=== PATIENT | male | born 1940 | race Native Hawaiian/Other Pacific Islander ===

== ENCOUNTER 2018-04-11 16:29 | Inpatient (IN) | payer MEDICARE ==
--- NOTE | 2018-04-11 16:48 | C.PDOC ---
History Of Present Illness 78 y/o M c PMHx CAD s/p CABG, pacemaker, COPD p/w shortness of breath x 1 week. Patient reports cough productive of yellow/green sputum. Denies fever, chest pain, leg swelling hemoptysis, nausea, vomiting. Returned from [facility] 3 weeks ago. Received nebulizer treatment en route to ED. Time Seen by Provider: 04/11/18 16:37 Chief Complaint (Nursing): Shortness Of Breath Past Medical History Vital Signs: Last Vital Signs Temp 98.4 F 04/11/18 19:30 Pulse 70 04/11/18 19:30 Resp 30 H 04/11/18 19:30 BP 142/72 04/11/18 19:30 Pulse Ox 96 04/11/18 19:30 - Medical History PMH: Arthritis, HTN - [facility] Procedures CORONAR ARTERIOGR-2 CATH (02/14/14) LEFT HEART CARDIAC CATH (02/14/14) LT HEART ANGIOCARDIOGRAM (02/14/14) Family History: States: Unknown Family Hx - Social History Hx Tobacco Use: No Hx Alcohol Use: No Hx Substance Use: No - Immunization History Hx Tetanus Toxoid Vaccination: No Hx Influenza Vaccination: No Hx Pneumococcal Vaccination: No Review Of Systems Except As Marked, All Systems Reviewed And Found Negative. Constitutional: Negative for: Fever Cardiovascular: Negative for: Chest Pain Physical Exam - Physical Exam Additional Physical Exam Comments: Gen: In moderate respiratory distress Head: NC/AT Eyes: PERRL ENT: MMM Neck: Supple. No JVD. Chest: No tenderness CV: Regular rate Lungs: Bilateral crackles. No wheezing. Pulse oximetry 96 to 98% on room air. Abd: Soft, NT Back: No CVA tenderness Extremities: No leg edema Skin: No rash Neuro: Alert, no focal deficit ED Course And Treatment - Laboratory Results Result Diagrams: 04/11/18 17:04 04/11/18 17:04 Critical Care Time - Critical Care Note Total Time (in mins): 60 Comments: Patient required immediate attention, reassessments, complex decision making, and multiple specialist conversations. Documented critical care: time excludes all time spent performing seperately billable procedures. Medical Decision Making Medical Decision Making: Differential includes pneumonia, CHF, COPD, PE. Unlikely PE given normal pulse oximetry and abnormal lung sounds. Will send d dimer, however, once other diagnosis becomes apparent, will forego further PE testing. EKG Ventricular paced rhythm, 70 bpm, no ST elevations IMPRESSION: Right basilar opacity suspicious for pneumonia. In addition, nodular opacities at right base raise concern for metastatic disease. Consider further evaluation with CT chest. CODE SEPSIS activated for lactate 2.2. ICU consulted, recommend Telemetry admission at this time. Hospitalist service covering for Dr. Campa accepts patient to their service. Disposition - Disposition Disposition: HOSPITALIZED Disposition Time: 17:19 Condition: GUARDED Forms: [employer] ([place]) - POA Core Measure Indicators: Code Sepsis - Clinical Impression Clinical Impression: Pneumonia, Sepsis
[2018-04-11 17:08] LABS: BASO % 0.3 % (0.0-2.0); HEMOGLOBIN 14.2 g/dL (12.0-18.0); LYMPH # 0.7 K/uL (1.0-4.3); LYMPH % 5.2 % (20.0-40.0); MEAN CELL VOLUME 86.3 fL (80.0-94.0); MEAN CORPUSCULAR HEMOGLOBIN 29.9 pg (27.0-31.0); MEAN CORPUSCULAR HGB CONC 34.7 g/dL (33.0-37.0); MEAN PLATELET VOLUME 9.8 fL (7.2-11.7); MONO % 7.2 % (0.0-10.0); NEUT # 12.2 K/uL (1.8-7.0); NEUT % 87.3 % (50.0-75.0); NRBC % 0.1 % (0.0-2.0); PLATELET COUNT 230 K/uL (130-400); RBC 4.74 Mil/uL (4.40-5.90); RED CELL DISTRIBUTION WIDTH 14.2 % (11.5-14.5)
[2018-04-11] MEDS ORDERED: Moxifloxacin IV 400mg/250ml NS 400 MG/250 ML BAG IVPB STA (17:16)
[2018-04-11] MEDS ORDERED: Vancomycin 1 gm/NS 200 ml 1 GM/200 ML BAG IVPB STA (17:16)
[2018-04-11] MEDS ORDERED: Cefepime IV 2 gm in Dextrose 2 GM/100 ML BAG IVPB STA (17:16)
[2018-04-11 17:23] LABS: INR 1.2; PROTHROMBIN TIME 13.4 SECONDS (9.7-12.2)
--- NOTE | 2018-04-11 17:23 | RAD ---
Date of service: 04/11/2018 HISTORY: dyspnea COMPARISON: 02/14/2014 FINDINGS: LUNGS: Right basilar pulmonary opacity suspicious for pneumonia. . Several nodular opacities at right base raising concern for metastasis. Consider correlation with CT chest. No left-sided infiltrate appreciated. PLEURA: No significant pleural effusion identified, no pneumothorax apparent. CARDIOVASCULAR: Normal heart size. Permanent pacemaker. CABG. No congestive change. OSSEOUS STRUCTURES: No significant abnormalities. VISUALIZED UPPER ABDOMEN: Normal. OTHER FINDINGS: None. IMPRESSION: Right basilar opacity suspicious for pneumonia. In addition, nodular opacities at right base raise concern for metastatic disease. Consider further evaluation with CT chest.
[2018-04-11 17:32] LABS: BANDS 25 % (0-2); LYMPHOCYTE 6 % (20-40); MONOCYTE 7 % (0-10); NEUTROPHIL 62 % (50-75); PLATELET ESTIMATE NORMAL (NORMAL); TOTAL CELLS COUNTED 100
[2018-04-11] MEDS ORDERED: Sodium Chloride 0.9% 2,000 ML ONE (17:43)
[2018-04-11] MEDS ORDERED: Sodium Chloride 0.9% 500 ML IV ONE (17:44)
[2018-04-11 17:49] LABS: ABG ALLEN TEST PO; ARTERIAL BLOOD GAS HCO3 21.3 mmol/L (21-28); ARTERIAL BLOOD GAS O2 SAT 95.4 % (95-98); ARTERIAL BLOOD GAS PCO2 22 mm/Hg (35-45); ARTERIAL BLOOD GAS PH 7.49 (7.35-7.45); ARTERIAL BLOOD GAS PO2 63 mm/Hg (80-100); ARTERIAL BLOOD GAS TCO2 17.5 mmol/L (22-28)
[2018-04-11 18:13] LABS: SQUAMOUS EPITHIAL < 1 /hpf (0-5); URINE BACTERIA MANY (<OCC); URINE BILIRUBIN NEGATIVE (NEGATIVE); URINE CLARITY Clear (Clear); URINE COLOR Amber (YELLOW); URINE GLUCOSE (UA) NORMAL (Normal); URINE LEUKOCYTE ESTERASE TRACE Leu/uL (Negative); URINE PROTEIN 2+ mg/dL (NEGATIVE)
[2018-04-11 18:14] LABS: ALB/GLOB RATIO 1.1 (1.0-2.1); ALBUMIN 4.4 g/dL (3.5-5.0); CALCIUM 9.5 mg/dl (8.6-10.4)
[2018-04-11 18:14] LABS: URINE BLOOD 1+ (NEGATIVE)
[2018-04-11 18:27] LABS: CK-MB 1.55 ng/mL (0.0-3.38); TROPONIN I 0.058 ng/mL (0.00-0.120)
[2018-04-11] MEDS ORDERED: Azithromycin 500 MG in Sodium Chloride 0.9% 250 ML IVPB STA (19:10)
--- NOTE | 2018-04-11 19:17 | CP.PCM.CON ---
<Archie Rivera - Last Filed: 04/11/18 19:27> Meds Allergies/Adverse Reactions: Allergies Allergy/AdvReac Type Severity Reaction Status Date / Time SEASONAL Allergy Uncoded 04/11/18 16:37 - Medications Medications: Current Medications Budesonide (Pulmicort Respules) 0.5 mg INH RQ12 NAYE Furosemide (Lasix) 40 mg IVP ONCE ONE Stop: 04/12/18 02:01 Sodium Chloride (Sodium Chloride 0.9%) 2,400 mls @ 1,000 mls/hr IV .Q2H24M STA Stop: 04/11/18 19:59 Last Admin: 04/11/18 17:53 Dose: 1,000 mls/hr Azithromycin 500 mg/ Sodium (Chloride) 250 mls @ 250 mls/hr IVPB STAT STA PRN Reason: Protocol Stop: 04/11/18 20:09 Azithromycin 500 mg/ Sodium (Chloride) 250 mls @ 250 mls/hr IVPB DAILY NAYE PRN Reason: Protocol Ceftriaxone Sodium 1 gm/ (Sodium Chloride) 100 mls @ 100 mls/hr IVPB Q12H NAYE PRN Reason: Protocol Methylprednisolone 125 mg/ (Sodium Chloride) 100 mls @ 200 mls/hr IVPB ONCE ONE Stop: 04/11/18 19:24 Oseltamivir Phosphate (Tamiflu Cap) 75 mg PO BID NAYE PRN Reason: Protocol Stop: 04/16/18 19:12 Results - Vital Signs Recent Vital Signs: Last Vital Signs Temp 103.4 F H 04/11/18 16:55 Pulse 69 04/11/18 18:06 Resp 25 H 04/11/18 18:06 BP 157/79 H 04/11/18 18:06 Pulse Ox 95 04/11/18 18:06 - Labs Result Diagrams: 04/11/18 17:04 04/11/18 17:04 Labs: Laboratory Results - last 24 hr 04/11/18 04/11/18 04/11/18 17:04 17:04 17:04 WBC 14.0 H D RBC 4.74 Hgb 14.2 Hct 40.9 MCV 86.3 MCH 29.9 MCHC 34.7 RDW 14.2 Plt Count 230 MPV 9.8 Neut % (Auto) 87.3 H Lymph % (Auto) 5.2 L [place] % (Auto) 7.2 Eos % (Auto) 0.0 Baso % (Auto) 0.3 Neut # (Auto) 12.2 H Lymph # (Auto) 0.7 L [place] # (Auto) 1.0 H Eos # (Auto) 0.0 Baso # (Auto) 0.0 Neutrophils % (Manual) 62 Band Neutrophils % 25 H* Lymphocytes % (Manual) 6 L Monocytes % (Manual) 7 Platelet Estimate Normal RBC Morphology Normal PT 13.4 H INR 1.2 APTT 31 D-Dimer, Quantitative 947 H Puncture Site pCO2 pO2 HCO3 ABG pH ABG Total CO2 ABG O2 Saturation ABG Base Excess Prakash Test ABG Potassium Glucose Lactate Liter Flow Sodium 137 Potassium 3.9 Chloride 99 Carbon Dioxide 20 L Anion Gap 22 H BUN 18 Creatinine 1.4 Est GFR ( Amer) 59 Est GFR (Non-Af Amer) 49 Random Glucose 185 H Calcium 9.5 Phosphorus 1.7 L Magnesium 2.0 Total Bilirubin 2.2 H AST 25 ALT 16 L D Alkaline Phosphatase 107 Total Creatine Kinase 120 CK-MB (Mass) 1.55 Troponin I 0.0580 NT-Pro-B Natriuret Pep 5550 H Total Protein 8.3 Albumin 4.4 Globulin 3.9 Albumin/Globulin Ratio 1.1 Arterial Blood Potassium Urine Color Urine Clarity Urine pH Ur Specific [place] Urine Protein Urine Glucose (UA) Urine Ketones Urine Blood Urine Nitrate Urine Bilirubin Urine Urobilinogen Ur Leukocyte Esterase Urine WBC (Auto) Urine RBC (Auto) Ur Squamous Epith Cells Urine Bacteria Hyaline Casts Influenza Typ A,B (EIA) 04/11/18 04/11/18 04/11/18 17:32 17:47 17:58 WBC RBC Hgb Hct MCV MCH MCHC RDW Plt Count MPV Neut % (Auto) Lymph % (Auto) [place] % (Auto) Eos % (Auto) Baso % (Auto) Neut # (Auto) Lymph # (Auto) [place] # (Auto) Eos # (Auto) Baso # (Auto) Neutrophils % (Manual) Band Neutrophils % Lymphocytes % (Manual) Monocytes % (Manual) Platelet Estimate RBC Morphology PT INR APTT D-Dimer, Quantitative Puncture Site Rr pCO2 22 L pO2 63 L HCO3 21.3 ABG pH 7.49 H ABG Total CO2 17.5 L ABG O2 Saturation 95.4 ABG Base Excess -4.5 L Prakash Test Po ABG Potassium 2.8 L Glucose 172 H Lactate 2.2 H Liter Flow 3.0 Sodium 135.0 Potassium Chloride 105.0 Carbon Dioxide Anion Gap BUN Creatinine Est GFR ( Amer) Est GFR (Non-Af Amer) Random Glucose Calcium Phosphorus Magnesium Total Bilirubin AST ALT Alkaline Phosphatase Total Creatine Kinase CK-MB (Mass) Troponin I NT-Pro-B Natriuret Pep Total Protein Albumin Globulin Albumin/Globulin Ratio Arterial Blood Potassium 2.8 L Urine Color Narcisa Urine Clarity Clear Urine pH 5.0 Ur Specific [place] 1.017 Urine Protein 2+ H Urine Glucose (UA) Normal Urine Ketones Trace Urine Blood 1+ H Urine Nitrate Negative Urine Bilirubin Negative Urine Urobilinogen 4.0 Ur Leukocyte Esterase Trace Urine WBC (Auto) 13 H Urine RBC (Auto) 7 H Ur Squamous Epith Cells < 1 Urine Bacteria Many H Hyaline Casts 3-5 H Influenza Typ A,B (EIA) Pos for influenza a H Attending/Attestation - Attestation I have personally seen and examined this patient.: Yes I have fully participated in the care of the patient.: Yes I have reviewed all pertinent clinical information: Yes Notes (Text): 04/11/18 19:27 I have seen and examined the patient. Medical records, lab studies, and imaging were reviewed by me and a management plan was formulated on multidisciplinary rounds with resident Dr. Gomez. I agree with their documented assessment and plan. Patient p/w SOB secondary to influenza with pneumonia - started abx and tamiflu c/b probable acute on chronic CHF exacerbation, diuresing with albumin drip. obtaining echo. with underlying emphysema. - steroid bolus with pulmicort inh bid Probable lung cancer, would consult pulmonary. Patient is currently stable for continue management on the telemetry floors, please reconsult ICU if the patient's condition changes. Critical Care Time 35 minutes. Multi-disciplinary rounds were performed with house staff, nursing, speech therapy, respiratory therapy, pharmacy and nutrition with integrated input from the primary team/attending and other consulting services. The documented time is cumulative and includes review of patient data/exams/labs/chart review and examination of the patient on rounds and throughout the day; time is exclusive of any procedures or teaching time. <Mohsen Gomez - Last Filed: 04/11/18 20:01> History of Present Illness - History of Present Illness History of Present Illness: Mohsen Gomez DO PGY-1, ICU consult note for Dr. Rivera CC: SOB, Cough Pt chart and records were reviewed prior to evaluation. This is a 78 year old male with PMHx of CAD s/p CABG, pacemaker, recently diagnosed Emphysema, HTN who presented with worsening cough and shortness of breath for the past 10 days. Pt states that his cough is productive of green sputum. His family admits to fever, tmax 101, 6 days ago. ICU was consulted for shortness of breath. In the ED, pt noted to have leukocytosis with 25 bands, BNP 5550, lactate 2.2, flu positive. Code sepsis was called. Pt received 80 mg of lasix IVP in the ED, as well as IVF. Pt was seen and examined at bedside. Pt is actively short of breath, with tachypnea and inability to complete sentences without stopping for deep breaths. Pt denies headache, dizziness, chest pain, abdominal pain, n/v/d. Pt endorses a decreased appetite over the past 2 weeks. PMD/Pulm: Yessy/ Katheryn Cogeneration Operator: Lucio Cardiothoracic surgeon: Dr. 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 Past Patient History - Past Medical History & Family History Past Medical History?: Yes - Past Social History Smoking Status: Never Smoked - CARDIAC Hx Hypertension: Yes - HEENT Hx Blind: Yes - MUSCULOSKELETAL/RHEUMATOLOGICAL Hx Arthritis: Yes - PSYCHIATRIC Hx Substance Use: No - SURGICAL HISTORY Hx Cataract Extraction: Yes - ANESTHESIA Hx Anesthesia: Yes Hx Anesthesia Reactions: No Meds - Medications Medications: Current Medications Sodium Chloride (Sodium Chloride 0.9%) 2,400 mls @ 1,000 mls/hr IV .Q2H24M STA Stop: 04/11/18 19:59 Last Admin: 04/11/18 17:53 Dose: 1,000 mls/hr Physical Exam - Head Exam Head Exam: ATRAUMATIC, NORMAL INSPECTION - Eye Exam Eye Exam: EOMI - ENT Exam ENT Exam: Mucous Membranes Moist - Neck Exam Neck exam: Positive for: Normal Inspection - Respiratory Exam Respiratory Exam: Rales (diffuse), Wheezes (scattered). absent: Respiratory Distress ((+) tachypnea; sob when talking) Additional comments: (+) large midline well-healing sternotomy scar - Cardiovascular Exam Cardiovascular Exam: REGULAR RHYTHM, +S1, +S2 - GI/Abdominal Exam GI & Abdominal Exam: Normal Bowel Sounds, Soft. absent: Tenderness - Extremities Exam Extremities exam: Positive for: pedal pulses present (2+ DPs). Negative for: tenderness Additional comments: (+) venous stasis changes - Neurological Exam Neurological exam: Alert, Oriented x3 - Psychiatric Exam Psychiatric exam: Normal Affect - Skin Skin Exam: Normal Color, Warm Results - Vital Signs Recent Vital Signs: Last Vital Signs Temp 103.4 F H 04/11/18 16:55 Pulse 69 04/11/18 18:06 Resp 25 H 04/11/18 18:06 BP 157/79 H 04/11/18 18:06 Pulse Ox 95 04/11/18 18:06 - Labs Result Diagrams: 04/11/18 17:04 04/11/18 17:04 Labs: Laboratory Results - last 24 hr 04/11/18 04/11/18 04/11/18 17:04 17:04 17:04 WBC 14.0 H D RBC 4.74 Hgb 14.2 Hct 40.9 MCV 86.3 MCH 29.9 MCHC 34.7 RDW 14.2 Plt Count 230 MPV 9.8 Neut % (Auto) 87.3 H Lymph % (Auto) 5.2 L [place] % (Auto) 7.2 Eos % (Auto) 0.0 Baso % (Auto) 0.3 Neut # (Auto) 12.2 H Lymph # (Auto) 0.7 L [place] # (Auto) 1.0 H Eos # (Auto) 0.0 Baso # (Auto) 0.0 Neutrophils % (Manual) 62 Band Neutrophils % 25 H* Lymphocytes % (Manual) 6 L Monocytes % (Manual) 7 Platelet Estimate Normal RBC Morphology Normal PT 13.4 H INR 1.2 APTT 31 D-Dimer, Quantitative 947 H Puncture Site pCO2 pO2 HCO3 ABG pH ABG Total CO2 ABG O2 Saturation ABG Base Excess Prakash Test ABG Potassium Glucose Lactate Liter Flow Sodium 137 Potassium 3.9 Chloride 99 Carbon Dioxide 20 L Anion Gap 22 H BUN 18 Creatinine 1.4 Est GFR ( Amer) 59 Est GFR (Non-Af Amer) 49 Random Glucose 185 H Calcium 9.5 Phosphorus 1.7 L Magnesium 2.0 Total Bilirubin 2.2 H AST 25 ALT 16 L D Alkaline Phosphatase 107 Total Creatine Kinase 120 CK-MB (Mass) 1.55 Troponin I 0.0580 NT-Pro-B Natriuret Pep 5550 H Total Protein 8.3 Albumin 4.4 Globulin 3.9 Albumin/Globulin Ratio 1.1 Arterial Blood Potassium Urine Color Urine Clarity Urine pH Ur Specific [place] Urine Protein Urine Glucose (UA) Urine Ketones Urine Blood Urine Nitrate Urine Bilirubin Urine Urobilinogen Ur Leukocyte Esterase Urine WBC (Auto) Urine RBC (Auto) Ur Squamous Epith Cells Urine Bacteria Hyaline Casts Influenza Typ A,B (EIA) 04/11/18 04/11/18 04/11/18 17:32 17:47 17:58 WBC RBC Hgb Hct MCV MCH MCHC RDW Plt Count MPV Neut % (Auto) Lymph % (Auto) [place] % (Auto) Eos % (Auto) Baso % (Auto) Neut # (Auto) Lymph # (Auto) [place] # (Auto) Eos # (Auto) Baso # (Auto) Neutrophils % (Manual) Band Neutrophils % Lymphocytes % (Manual) Monocytes % (Manual) Platelet Estimate RBC Morphology PT INR APTT D-Dimer, Quantitative Puncture Site Rr pCO2 22 L pO2 63 L HCO3 21.3 ABG pH 7.49 H ABG Total CO2 17.5 L ABG O2 Saturation 95.4 ABG Base Excess -4.5 L Prakash Test Po ABG Potassium 2.8 L Glucose 172 H Lactate 2.2 H Liter Flow 3.0 Sodium 135.0 Potassium Chloride 105.0 Carbon Dioxide Anion Gap BUN Creatinine Est GFR ( Amer) Est GFR (Non-Af Amer) Random Glucose Calcium Phosphorus Magnesium Total Bilirubin AST ALT Alkaline Phosphatase Total Creatine Kinase CK-MB (Mass) Troponin I NT-Pro-B Natriuret Pep Total Protein Albumin Globulin Albumin/Globulin Ratio Arterial Blood Potassium 2.8 L Urine Color [place] Urine Clarity Clear Urine pH 5.0 Ur Specific [place] 1.017 Urine Protein 2+ H Urine Glucose (UA) Normal Urine Ketones Trace Urine Blood 1+ H Urine Nitrate Negative Urine Bilirubin Negative Urine Urobilinogen 4.0 Ur Leukocyte Esterase Trace Urine WBC (Auto) 13 H Urine RBC (Auto) 7 H Ur Squamous Epith Cells < 1 Urine Bacteria Many H Hyaline Casts 3-5 H Influenza Typ A,B (EIA) Pos for influenza a H Assessment & Plan - Assessment and Plan (Free Text) Assessment: This is a 78 year old male with PMHx of CAD s/p CABG, pacemaker, recently diagnosed Emphysema, HTN who presented with worsening cough and shortness of breath for the past 10 days. Pt states that his cough is productive of green sputum. His family admits to fever, tmax 101, 6 days ago. ICU was consulted for shortness of breath. Plan: Neuro: - monitor for mental status changes - pt is aaox3 at baseline Cardio: - maintain MAP>65 mmHg - BNP is 5550 - place hagen - lasix 40 mg ivp - troponin negative x1 - albumin drip - echocardiogram Pulm: - cxr shows right basilar opacity suspicious for pneumonia. In addition, nodular opacities at right base concern for metastatic disease. - maintain spo2>90% - antibiotics for pneumonia - positive for influenza a; tamiflu - solumedrol 125 mg bolus, solumedrol 40q12 - PFTs - pulmicort GI: - HHD Renal: - BUN/Cr wnl - replete electrolytes as needed - strict I's and O's while being diuresed ID: - likely community acquired pnuemonia; azithromycin, ceftriaxone - lactate is 2.2; likely secondary to pneumonia Heme/onc: - cxr findings suggestive of possible malignancy - pulmonology consult - f/u cxr - heparin and scd for vte ppx Endo: - maintain euglycemia - accucheck achs PPX: heparin and SCDs for vte Case reviewed and discussed with attending physician, Dr. Rivera
[2018-04-11] MEDS ORDERED: Albumin Human 5% (12.5 gm/250 ml) IV ONE (19:22)
[2018-04-11] MEDS ORDERED: methylPREDNISolone 125 MG in Sodium Chloride 0.9% 100 ML IVPB ONE (19:23)
[2018-04-11 19:59] LABS: VENOUS BLOOD GAS PCO2 27 mmHg (40-60); VENOUS BLOOD GAS PO2 28 mm/Hg (30-55); VENOUS BLOOD PH 7.41 (7.32-7.43)
[2018-04-11] MEDS: Budesonide 0.5 mg/2 ml Inhal Susp UD INH SCH (20:00)
[2018-04-11] MEDS ORDERED: Potassium Phosphate 15 MMOLE in Dextrose 5% In Water 250 ML IVPB ONE (21:26)
--- NOTE | 2018-04-11 21:44 | CP.PCM.HP ---
History of Present Illness - History of Present Illness History of Present Illness: 78 yo M w/ PMHx of HTN, CAD(CABG and pacemaker 2014) and newly diagnosed emphysema, presents to the ED w/ complaints of cough and SOB x 3 days, productive of green sputum. Pt reports fever like symptoms including chills and sweats, dizziness associated w/ cough, and anorexia. Patient also reports constipation x5 days. Patient recently returned from the [facility] 3 weeks ago. He denies chest pain, nausea, vomiting, diarrhea. Present on Admission - Present on Admission Any Indicators Present on Admission: No Review of Systems - Constitutional Constitutional: Anorexia, Chills - Cardiovascular Cardiovascular: absent: Chest Pain, Edema, Palpitations - Respiratory Respiratory: Cough, Dyspnea, Wheezing, Chest Congestion, Excessive Mucous Production (green sputum). absent: Hemoptysis - Gastrointestinal Gastrointestinal: Constipation (5days). absent: Abdominal Pain, Diarrhea, Nausea, Vomiting - Genitourinary Genitourinary: absent: Difficulty Urinating, Dysuria - Neurological Neurological: Dizziness (with coughing) Past Patient History - Past Medical History & Family History Past Medical History?: Yes - Past Social History Smoking Status: Never Smoked - CARDIAC Hx Hypertension: Yes - HEENT Hx Blind: Yes - MUSCULOSKELETAL/RHEUMATOLOGICAL Hx Arthritis: Yes - PSYCHIATRIC Hx Substance Use: No - SURGICAL HISTORY Hx Cataract Extraction: Yes - ANESTHESIA Hx Anesthesia: Yes Hx Anesthesia Reactions: No Meds Allergies/Adverse Reactions: Allergies Allergy/AdvReac Type Severity Reaction Status Date / Time SEASONAL Allergy Uncoded 04/11/18 16:37 Physical Exam - Constitutional Appears: Non-toxic - Head Exam Head Exam: ATRAUMATIC, NORMAL INSPECTION, NORMOCEPHALIC - Eye Exam Eye Exam: EOMI - ENT Exam ENT Exam: Mucous Membranes Moist - Neck Exam Neck exam: Positive for: Normal Inspection - Respiratory Exam Respiratory Exam: Rhonchi, Wheezes. absent: Accessory Muscle Use, Chest Wall Tenderness - Cardiovascular Exam Cardiovascular Exam: REGULAR RHYTHM. absent: Tachycardia - GI/Abdominal Exam GI & Abdominal Exam: Normal Bowel Sounds, Soft - Extremities Exam Extremities exam: Positive for: normal capillary refill, normal inspection. Negative for: calf tenderness, pedal edema - Back Exam Back exam: absent: vertebral tenderness - Neurological Exam Neurological exam: Alert, Oriented x3 - Psychiatric Exam Psychiatric exam: Normal Affect - Skin Skin Exam: Normal Color Results - Vital Signs Recent Vital Signs: Last Vital Signs Temp 98.4 F 04/11/18 19:30 Pulse 70 04/11/18 19:30 Resp 30 H 04/11/18 19:30 BP 142/72 04/11/18 19:30 Pulse Ox 96 04/11/18 19:30 - Labs Result Diagrams: 04/11/18 17:04 04/11/18 17:04 Labs: Laboratory Results - last 24 hr 04/11/18 04/11/18 04/11/18 17:04 17:04 17:04 WBC 14.0 H D RBC 4.74 Hgb 14.2 Hct 40.9 MCV 86.3 MCH 29.9 MCHC 34.7 RDW 14.2 Plt Count 230 MPV 9.8 Neut % (Auto) 87.3 H Lymph % (Auto) 5.2 L [place] % (Auto) 7.2 Eos % (Auto) 0.0 Baso % (Auto) 0.3 Neut # (Auto) 12.2 H Lymph # (Auto) 0.7 L [place] # (Auto) 1.0 H Eos # (Auto) 0.0 Baso # (Auto) 0.0 Neutrophils % (Manual) 62 Band Neutrophils % 25 H* Lymphocytes % (Manual) 6 L Monocytes % (Manual) 7 Platelet Estimate Normal RBC Morphology Normal PT 13.4 H INR 1.2 APTT 31 D-Dimer, Quantitative 947 H Puncture Site pCO2 pO2 HCO3 ABG pH ABG Total CO2 ABG O2 Saturation ABG Base Excess Prakash Test ABG Potassium VBG pH VBG pCO2 VBG HCO3 VBG Total CO2 VBG O2 Sat (Calc) VBG Base Excess VBG Potassium Glucose Lactate Liter Flow FiO2 Sodium 137 Potassium 3.9 Chloride 99 Carbon Dioxide 20 L Anion Gap 22 H BUN 18 Creatinine 1.4 Est GFR ( Amer) 59 Est GFR (Non-Af Amer) 49 Random Glucose 185 H Calcium 9.5 Phosphorus 1.7 L Magnesium 2.0 Total Bilirubin 2.2 H AST 25 ALT 16 L D Alkaline Phosphatase 107 Total Creatine Kinase 120 CK-MB (Mass) 1.55 Troponin I 0.0580 NT-Pro-B Natriuret Pep 5550 H Total Protein 8.3 Albumin 4.4 Globulin 3.9 Albumin/Globulin Ratio 1.1 Arterial Blood Potassium Venous Blood Potassium Urine Color Urine Clarity Urine pH Ur Specific [place] Urine Protein Urine Glucose (UA) Urine Ketones Urine Blood Urine Nitrate Urine Bilirubin Urine Urobilinogen Ur Leukocyte Esterase Urine WBC (Auto) Urine RBC (Auto) Ur Squamous Epith Cells Urine Bacteria Hyaline Casts Influenza Typ A,B (EIA) 04/11/18 04/11/18 04/11/18 17:32 17:47 17:58 WBC RBC Hgb Hct MCV MCH MCHC RDW Plt Count MPV Neut % (Auto) Lymph % (Auto) [place] % (Auto) Eos % (Auto) Baso % (Auto) Neut # (Auto) Lymph # (Auto) [place] # (Auto) Eos # (Auto) Baso # (Auto) Neutrophils % (Manual) Band Neutrophils % Lymphocytes % (Manual) Monocytes % (Manual) Platelet Estimate RBC Morphology PT INR APTT D-Dimer, Quantitative Puncture Site Rr pCO2 22 L pO2 63 L HCO3 21.3 ABG pH 7.49 H ABG Total CO2 17.5 L ABG O2 Saturation 95.4 ABG Base Excess -4.5 L Prakash Test Po ABG Potassium 2.8 L VBG pH VBG pCO2 VBG HCO3 VBG Total CO2 VBG O2 Sat (Calc) VBG Base Excess VBG Potassium Glucose 172 H Lactate 2.2 H Liter Flow 3.0 FiO2 Sodium 135.0 Potassium Chloride 105.0 Carbon Dioxide Anion Gap BUN Creatinine Est GFR ( Amer) Est GFR (Non-Af Amer) Random Glucose Calcium Phosphorus Magnesium Total Bilirubin AST ALT Alkaline Phosphatase Total Creatine Kinase CK-MB (Mass) Troponin I NT-Pro-B Natriuret Pep Total Protein Albumin Globulin Albumin/Globulin Ratio Arterial Blood Potassium 2.8 L Venous Blood Potassium Urine Color Narcisa Urine Clarity Clear Urine pH 5.0 Ur Specific [place] 1.017 Urine Protein 2+ H Urine Glucose (UA) Normal Urine Ketones Trace Urine Blood 1+ H Urine Nitrate Negative Urine Bilirubin Negative Urine Urobilinogen 4.0 Ur Leukocyte Esterase Trace Urine WBC (Auto) 13 H Urine RBC (Auto) 7 H Ur Squamous Epith Cells < 1 Urine Bacteria Many H Hyaline Casts 3-5 H Influenza Typ A,B (EIA) Pos for influenza a H 04/11/18 19:55 WBC RBC Hgb Hct MCV MCH MCHC RDW Plt Count MPV Neut % (Auto) Lymph % (Auto) [place] % (Auto) Eos % (Auto) Baso % (Auto) Neut # (Auto) Lymph # (Auto) [place] # (Auto) Eos # (Auto) Baso # (Auto) Neutrophils % (Manual) Band Neutrophils % Lymphocytes % (Manual) Monocytes % (Manual) Platelet Estimate RBC Morphology PT INR APTT D-Dimer, Quantitative Puncture Site pCO2 pO2 28 L HCO3 ABG pH ABG Total CO2 ABG O2 Saturation ABG Base Excess Prakash Test ABG Potassium VBG pH 7.41 VBG pCO2 27 L VBG HCO3 19.1 VBG Total CO2 17.9 L VBG O2 Sat (Calc) 57.2 VBG Base Excess -6.0 L VBG Potassium 2.6 L Glucose 154 H Lactate 2.1 Liter Flow FiO2 21.0 Sodium 137.0 Potassium Chloride 106.0 Carbon Dioxide Anion Gap BUN Creatinine Est GFR ( Amer) Est GFR (Non-Af Amer) Random Glucose Calcium Phosphorus Magnesium Total Bilirubin AST ALT Alkaline Phosphatase Total Creatine Kinase CK-MB (Mass) Troponin I NT-Pro-B Natriuret Pep Total Protein Albumin Globulin Albumin/Globulin Ratio Arterial Blood Potassium Venous Blood Potassium 2.6 L Urine Color Urine Clarity Urine pH Ur Specific [place] Urine Protein Urine Glucose (UA) Urine Ketones Urine Blood Urine Nitrate Urine Bilirubin Urine Urobilinogen Ur Leukocyte Esterase Urine WBC (Auto) Urine RBC (Auto) Ur Squamous Epith Cells Urine Bacteria Hyaline Casts Influenza Typ A,B (EIA) Assessment & Plan - Assessment and Plan (Free Text) Assessment: 78 yo M w/ PMHx of HTN, CAD(CABG and pacemaker 2013), newly diagnosed emphysema , admitted w/ sepsis 2/2 to PNA(likely CAP). 1. Sepsis 2/2 PNA(likely CAP) -WBC 14, bands 25, lactate 2.2, T-103.4 -maintain MAP>65, spO2>92% -influenza A (+), tamiflu -f/u blood/urine/sputum cx -IV Abx azithro 500mg qd, rocephin 1gm q12 2. PNA -duonebs q6 -sputum cx -am CXR -consider CT/CTA once renal fxn improves -IV Abx azithro 500mg qd, rocephin 1gm q12 3. CAD -aspirin 81mg -trop neg x1 4. r/o CHF -BNP-5550 -f/u echo -cardio consult Dr. Valdes 5. HTN -losartan 25 BID 6. Renal -BUN/ Cr 18/1.4 -lasix 40mg x1 -monitor for worsening renal function 7. r/o metastasis -no ca hx -consider CTA pending renal fxn 8. Hypophosphatemia -15 mmol replete as needed 9. Ppx -heparin 5000U sc Blossom Valentin PGY1 Decision To Admit - Pt Status Changed To: Hospital Disposition Of: Inpatient - Admit Certification Admit to Inpatient:: After my assessment, the patient will require hospitalization for at least two midnights. This is because of the severity of symptoms shown, intensity of services needed, and/or the medical risk in this patient being treated as an outpatient. - InPatient: Physician Admission Certification:: admit to tele - . Bed Request Type: Telemetry
--- NOTE | 2018-04-11 22:48 | PCM.SEPTIC ---
Sepsis Progress Note - Reassessment Type Date of Evaluation: 04/11/18 Time of Evaluation: 22:47 Reassessment Type: Non-invasive reassessment - Non Invasive Reassessment Were the most recent vital sign reviewed: Yes Vital Sign (Latest): Temp Pulse Resp BP Pulse Ox 97.9 F 70 20 155/85 H 96 04/11/18 20:50 04/11/18 20:50 04/11/18 20:50 04/11/18 20:50 04/11/18 20:50 Cardiovascular: Yes: Regular Rate, Rhythm. No: Edema, Tachycardia Respiratory: Yes: Crackles, Rhonchi, Wheezing. No: Normal Breath Sounds Capillary Refill: Normal (Less than 2 sec) Pulses: Normal Radial Skin: Diaphoretic
[2018-04-11 23:02] LABS: URINE BACTERIA RARE (<OCC); URINE BILIRUBIN NEGATIVE (NEGATIVE); URINE BLOOD 2+ (NEGATIVE); URINE CLARITY Clear (Clear); URINE COLOR Yellow (YELLOW); URINE GLUCOSE (UA) NORMAL (Normal); URINE LEUKOCYTE ESTERASE TRACE Leu/uL (Negative); URINE PROTEIN NEGATIVE (NEGATIVE); URINE UROBILINOGEN NORMAL mg/dL (0.2-1.0)
[2018-04-12 07:16] LABS: MEAN CORPUSCULAR HGB CONC 34.7 g/dL (33.0-37.0); MEAN PLATELET VOLUME 9.7 fL (7.2-11.7); MONO # 0.3 K/uL (0.0-0.8); RBC 4.51 Mil/uL (4.40-5.90)
[2018-04-12 07:25] LABS: BASO % 0.3 % (0.0-2.0); HEMOGLOBIN 13.6 g/dL (12.0-18.0); LYMPH # 0.5 K/uL (1.0-4.3); LYMPH % 5.6 % (20.0-40.0); MEAN CELL VOLUME 86.6 fL (80.0-94.0); MEAN CORPUSCULAR HEMOGLOBIN 30.1 pg (27.0-31.0); MONO % 3.4 % (0.0-10.0); NEUT # 8.8 K/uL (1.8-7.0); NEUT % 90.7 % (50.0-75.0); PLATELET COUNT 183 K/uL (130-400); WHITE BLOOD COUNT 9.7 K/uL (4.8-10.8)
[2018-04-12 08:32] LABS: ALB/GLOB RATIO 1.2 (1.0-2.1); ALBUMIN 3.9 g/dL (3.5-5.0); ALT/SGPT 17 U/L (21-72); AST/SGOT 27 U/L (17-59); BLOOD UREA NITROGEN 18 mg/dL (9-20); CALCIUM 8.4 mg/dl (8.6-10.4); GFR NON-AFRICAN AMERICAN > 60
--- NOTE | 2018-04-12 08:36 | RAD ---
Date of service: 04/12/2018 HISTORY: pna COMPARISON: Portable chest 04/11/2018. FINDINGS: Unipolar permanent pacemaker again evident. LUNGS: Limited improvement in bilateral patchy airspace disease at the inferior lung zones with nodularity diminishing at the inferior right lung zone in particular. Underlying interstitial pulmonary changes are questioned right side greater than left. PLEURA: No significant pleural effusion identified, no pneumothorax apparent. CARDIOVASCULAR: Cardiomegaly appears stable. No pulmonary vascular congestion. OSSEOUS STRUCTURES: Sternotomy wires reiterated. VISUALIZED UPPER ABDOMEN: Normal. OTHER FINDINGS: None. IMPRESSION: Diminishing bilateral basilar airspace disease with underlying nodularity diminishing in the right base. CT remains available for follow-up. Stable cardiomegaly.
[2018-04-12 08:49] LABS: BANDS 26 % (0-2); LYMPHOCYTE 6 % (20-40); MONOCYTE 3 % (0-10); NEUTROPHIL 65 % (50-75); PLATELET ESTIMATE NORMAL (NORMAL); TOTAL CELLS COUNTED 100
[2018-04-12] MEDS ORDERED: Potassium Chloride 20 mEq ER Tab PO ONE (09:02)
--- NOTE | 2018-04-12 09:16 | CP.PCM.CON ---
History of Present Illness - History of Present Illness History of Present Illness: patient seen/examined. full consult to follow. moderate LV dsyfunction by echo. Medical tehrapy. abx Past Patient History - Past Medical History & Family History Past Medical History?: Yes - Past Social History Smoking Status: Never Smoked - CARDIAC Hx Hypertension: Yes - HEENT Hx Blind: Yes - MUSCULOSKELETAL/RHEUMATOLOGICAL Hx Arthritis: Yes - PSYCHIATRIC Hx Substance Use: No - SURGICAL HISTORY Hx Cataract Extraction: Yes - ANESTHESIA Hx Anesthesia: Yes Hx Anesthesia Reactions: No Meds Allergies/Adverse Reactions: Allergies Allergy/AdvReac Type Severity Reaction Status Date / Time SEASONAL Allergy Uncoded 04/11/18 16:37 - Medications Medications: Current Medications Acetaminophen (Tylenol 325mg Tab) 650 mg PO Q6 PRN PRN Reason: Fever >100.4 F Albuterol/Ipratropium (Duoneb 3 Mg/0.5 Mg (3 Ml) Ud) 3 ml INH RQ6 PRN PRN Reason: Wheezing Aspirin (Aspirin Chewable) 81 mg PO DAILY NAYE Budesonide (Pulmicort Respules) 0.5 mg INH RQ12 NAYE Last Admin: 04/11/18 20:00 Dose: 0.5 mg Famotidine (Pepcid) 20 mg PO BID NAYE Heparin Sodium (Porcine) (Heparin) 5,000 units SC Q8 [facility] Last Admin: 04/12/18 06:21 Dose: 5,000 units Azithromycin 500 mg/ Sodium (Chloride) 250 mls @ 250 mls/hr IVPB DAILY NAYE PRN Reason: Protocol Ceftriaxone Sodium 1 gm/ (Sodium Chloride) 100 mls @ 100 mls/hr IVPB Q12H NAYE PRN Reason: Protocol Last Admin: 04/12/18 08:30 Dose: 100 mls/hr Oseltamivir Phosphate (Tamiflu Cap) 75 mg PO BID NAYE PRN Reason: Protocol Stop: 04/16/18 19:12 Results - Vital Signs Recent Vital Signs: Last Vital Signs Temp 97.4 F L 04/12/18 07:10 Pulse 70 04/12/18 07:10 Resp 20 04/12/18 07:10 BP 134/78 04/12/18 07:10 Pulse Ox 99 04/12/18 07:10 - Labs Result Diagrams: 04/12/18 07:08 04/12/18 07:08 Labs: Laboratory Results - last 24 hr 04/11/18 04/11/18 04/11/18 17:04 17:04 17:04 WBC 14.0 H D RBC 4.74 Hgb 14.2 Hct 40.9 MCV 86.3 MCH 29.9 MCHC 34.7 RDW 14.2 Plt Count 230 MPV 9.8 Neut % (Auto) 87.3 H Lymph % (Auto) 5.2 L [place] % (Auto) 7.2 Eos % (Auto) 0.0 Baso % (Auto) 0.3 Neut # (Auto) 12.2 H Lymph # (Auto) 0.7 L [place] # (Auto) 1.0 H Eos # (Auto) 0.0 Baso # (Auto) 0.0 Neutrophils % (Manual) 62 Band Neutrophils % 25 H* Lymphocytes % (Manual) 6 L Monocytes % (Manual) 7 Platelet Estimate Normal RBC Morphology Normal PT 13.4 H INR 1.2 APTT 31 D-Dimer, Quantitative 947 H Puncture Site pCO2 pO2 HCO3 ABG pH ABG Total CO2 ABG O2 Saturation ABG Base Excess Prakash Test ABG Potassium VBG pH VBG pCO2 VBG HCO3 VBG Total CO2 VBG O2 Sat (Calc) VBG Base Excess VBG Potassium Glucose Lactate Liter Flow FiO2 Sodium 137 Potassium 3.9 Chloride 99 Carbon Dioxide 20 L Anion Gap 22 H BUN 18 Creatinine 1.4 Est GFR ( Amer) 59 Est GFR (Non-Af Amer) 49 Random Glucose 185 H Calcium 9.5 Phosphorus 1.7 L Magnesium 2.0 Total Bilirubin 2.2 H AST 25 ALT 16 L D Alkaline Phosphatase 107 Total Creatine Kinase 120 CK-MB (Mass) 1.55 Troponin I 0.0580 NT-Pro-B Natriuret Pep 5550 H Total Protein 8.3 Albumin 4.4 Globulin 3.9 Albumin/Globulin Ratio 1.1 Arterial Blood Potassium Venous Blood Potassium Urine Color Urine Clarity Urine pH Ur Specific [place] Urine Protein Urine Glucose (UA) Urine Ketones Urine Blood Urine Nitrate Urine Bilirubin Urine Urobilinogen Ur Leukocyte Esterase Urine WBC (Auto) Urine RBC (Auto) Ur Squamous Epith Cells Urine Bacteria Hyaline Casts Influenza Typ A,B (EIA) 04/11/18 04/11/18 04/11/18 17:32 17:47 17:58 WBC RBC Hgb Hct MCV MCH MCHC RDW Plt Count MPV Neut % (Auto) Lymph % (Auto) [place] % (Auto) Eos % (Auto) Baso % (Auto) Neut # (Auto) Lymph # (Auto) [place] # (Auto) Eos # (Auto) Baso # (Auto) Neutrophils % (Manual) Band Neutrophils % Lymphocytes % (Manual) Monocytes % (Manual) Platelet Estimate RBC Morphology PT INR APTT D-Dimer, Quantitative Puncture Site Rr pCO2 22 L pO2 63 L HCO3 21.3 ABG pH 7.49 H ABG Total CO2 17.5 L ABG O2 Saturation 95.4 ABG Base Excess -4.5 L Prakash Test Po ABG Potassium 2.8 L VBG pH VBG pCO2 VBG HCO3 VBG Total CO2 VBG O2 Sat (Calc) VBG Base Excess VBG Potassium Glucose 172 H Lactate 2.2 H Liter Flow 3.0 FiO2 Sodium 135.0 Potassium Chloride 105.0 Carbon Dioxide Anion Gap BUN Creatinine Est GFR ( Amer) Est GFR (Non-Af Amer) Random Glucose Calcium Phosphorus Magnesium Total Bilirubin AST ALT Alkaline Phosphatase Total Creatine Kinase CK-MB (Mass) Troponin I NT-Pro-B Natriuret Pep Total Protein Albumin Globulin Albumin/Globulin Ratio Arterial Blood Potassium 2.8 L Venous Blood Potassium Urine Color Narcisa Urine Clarity Clear Urine pH 5.0 Ur Specific [place] 1.017 Urine Protein 2+ H Urine Glucose (UA) Normal Urine Ketones Trace Urine Blood 1+ H Urine Nitrate Negative Urine Bilirubin Negative Urine Urobilinogen 4.0 Ur Leukocyte Esterase Trace Urine WBC (Auto) 13 H Urine RBC (Auto) 7 H Ur Squamous Epith Cells < 1 Urine Bacteria Many H Hyaline Casts 3-5 H Influenza Typ A,B (EIA) Pos for influenza a H 04/11/18 04/11/18 04/12/18 19:55 22:53 07:08 WBC 9.7 RBC 4.51 Hgb 13.6 Hct 39.1 MCV 86.6 MCH 30.1 MCHC 34.7 RDW 14.0 Plt Count 183 MPV 9.7 Neut % (Auto) 90.7 H Lymph % (Auto) 5.6 L [place] % (Auto) 3.4 Eos % (Auto) 0.0 Baso % (Auto) 0.3 Neut # (Auto) 8.8 H Lymph # (Auto) 0.5 L [place] # (Auto) 0.3 Eos # (Auto) 0.0 Baso # (Auto) 0.0 Neutrophils % (Manual) 65 Band Neutrophils % 26 H* Lymphocytes % (Manual) 6 L Monocytes % (Manual) 3 Platelet Estimate Normal RBC Morphology Normal PT INR APTT D-Dimer, Quantitative Puncture Site pCO2 pO2 28 L HCO3 ABG pH ABG Total CO2 ABG O2 Saturation ABG Base Excess Prakash Test ABG Potassium VBG pH 7.41 VBG pCO2 27 L VBG HCO3 19.1 VBG Total CO2 17.9 L VBG O2 Sat (Calc) 57.2 VBG Base Excess -6.0 L VBG Potassium 2.6 L Glucose 154 H Lactate 2.1 Liter Flow FiO2 21.0 Sodium 137.0 Potassium Chloride 106.0 Carbon Dioxide Anion Gap BUN Creatinine Est GFR ( Amer) Est GFR (Non-Af Amer) Random Glucose Calcium Phosphorus Magnesium Total Bilirubin AST ALT Alkaline Phosphatase Total Creatine Kinase CK-MB (Mass) Troponin I NT-Pro-B Natriuret Pep Total Protein Albumin Globulin Albumin/Globulin Ratio Arterial Blood Potassium Venous Blood Potassium 2.6 L Urine Color Yellow Urine Clarity Clear Urine pH 5.0 Ur Specific [place] 1.006 Urine Protein Negative Urine Glucose (UA) Normal Urine Ketones Trace Urine Blood 2+ H Urine Nitrate Negative Urine Bilirubin Negative Urine Urobilinogen Normal Ur Leukocyte Esterase Trace Urine WBC (Auto) 7 H Urine RBC (Auto) 1 Ur Squamous Epith Cells Urine Bacteria Rare Hyaline Casts 3-5 H Influenza Typ A,B (EIA) 04/12/18 07:08 WBC RBC Hgb Hct MCV MCH MCHC RDW Plt Count MPV Neut % (Auto) Lymph % (Auto) [place] % (Auto) Eos % (Auto) Baso % (Auto) Neut # (Auto) Lymph # (Auto) [place] # (Auto) Eos # (Auto) Baso # (Auto) Neutrophils % (Manual) Band Neutrophils % Lymphocytes % (Manual) Monocytes % (Manual) Platelet Estimate RBC Morphology PT INR APTT D-Dimer, Quantitative Puncture Site pCO2 pO2 HCO3 ABG pH ABG Total CO2 ABG O2 Saturation ABG Base Excess Prakash Test ABG Potassium VBG pH VBG pCO2 VBG HCO3 VBG Total CO2 VBG O2 Sat (Calc) VBG Base Excess VBG Potassium Glucose Lactate Liter Flow FiO2 Sodium 140 Potassium 3.2 L Chloride 103 Carbon Dioxide 17 L Anion Gap 23 H BUN 18 Creatinine 1.1 Est GFR ( Amer) > 60 Est GFR (Non-Af Amer) > 60 Random Glucose 184 H Calcium 8.4 L Phosphorus 3.1 Magnesium 2.0 Total Bilirubin 1.4 H AST 27 ALT 17 L Alkaline Phosphatase 84 Total Creatine Kinase CK-MB (Mass) Troponin I NT-Pro-B Natriuret Pep Total Protein 7.3 Albumin 3.9 Globulin 3.4 Albumin/Globulin Ratio 1.2 Arterial Blood Potassium Venous Blood Potassium Urine Color Urine Clarity Urine pH Ur Specific [place] Urine Protein Urine Glucose (UA) Urine Ketones Urine Blood Urine Nitrate Urine Bilirubin Urine Urobilinogen Ur Leukocyte Esterase Urine WBC (Auto) Urine RBC (Auto) Ur Squamous Epith Cells Urine Bacteria Hyaline Casts Influenza Typ A,B (EIA)
--- NOTE | 2018-04-12 09:16 | CP.PCM.CON ---
History of Present Illness - History of Present Illness History of Present Illness: I was asked to see patient by the medical team. Patient is a 78 year old male with PMH HTn, hyperchoelsterolemia, CAD s/p CABG, s/p PPM mild LV dysfunction who presents with dyspnea. Patient's symptoms are notable for cough with green sputum. He was tried on outpatient therapy, but wsa found to have pneumonia. He has no fever. Review of Systems - Constitutional Constitutional: absent: As Per HPI, Anorexia, Chills, Daytime Sleepiness, Excessive Sweating, Fatigue, Fever, Frequent Falls, Headache, Increased Appetite , Lethargy, Malaise, Night Sweats, Snoring, Sleep Apnea, Weight Gain, Weight Loss, Weakness, Other - EENT Eyes: absent: As Per HPI, Blind Spots, Blurred Vision, Change in Vision, Decreased Night Vision, Diplopia, Discharge, Dry Eye, Exophthalmos, Floaters, Irritation, Itchy Eyes, Loss of Peripheral Vision, Pain, Photophobia, Requires Corrective Lenses, Sees Flashes, Spots in Vision, Tunnel Vision, Other Visual Disturbances, Loss of Vision, Other Ears: absent: As Per HPI, Decreased Hearing, Ear Discharge, Ear Pain, Tinnitus, Abnormal Hearing, Disequilibrium, Dizziness, Other Nose/Mouth/Throat: absent: As Per HPI, Epistaxis, Nasal Congestion, Nasal Discharge, Nasal Obstruction, Nasal Trauma, Nose Pain, Post Nasal Drip, Sinus Pain, Sinus Pressure, Bleeding Gums, Change in Voice, Dental Pain, Dry Mouth, Dysphagia, Halitosis, Hoarsness, Lip Swelling, Mouth Lesions, Mouth Pain, Odynophagia, Sore Throat, Throat Swelling, Tongue Swelling, Facial Pain, Neck Pain, Neck Mass, Other - Cardiovascular Cardiovascular: absent: As Per HPI, Acrocyanosis, Chest Pain, Chest Pain at Rest , Chest Pain with Activity, Claudication, Diaphoresis, Dyspnea, Dyspnea on Exertion, Edema, Irregular Heart Rhythm, Pain Radiating to Arm/Neck/Jaw, Leg Edema, Leg Ulcers, Lightheadedness, Orthopnea, Palpitations, Paroxysmal Nocturnal Dyspnea, Pedal Edema, Radiating Pain, Rapid Heart Rate, Slow Heart Rate, Syncope, Other - Respiratory Respiratory: Cough, Excessive Mucous Production, Change in Mucous Color - Gastrointestinal Gastrointestinal: absent: As Per HPI, Abdominal Pain, Belching, Bloating, Change in Bowel Habits, Change in Stool Character, Coffee Ground Emesis, Constipation, Cramping, Diarrhea, Dyspepsia, Dysphagia, Early Satiety, Excessive Flatus, Fecal Incontinence, Heartburn, Hematemesis, Hematochezia, Loose Stools, Melena, Nausea, Odynophagia, Temesmus, Vomiting, Other - Genitourinary Genitourinary: absent: As Per HPI, Change in Urinary Stream, Difficulty Urinating, Dysuria, Flank Pain, Hematuria, Pyuria, Nocturia, Urinary Incontinence, Urinary Frequency, Urinary Hesitance, Urinary Urgency, Voiding Freq/Small Amts, Freq UTI, Hx Renal/Bladder Calculi, Hx /Renal Surgery, Bladder Distension, Other - Musculoskeletal Musculoskeletal: absent: As Per HPI, Abnormal Gait, Arthralgias, Atrophy, Back Pain, Deformity, Joint Swelling, Limited Range of Motion, Loss of Height, Muscle Cramps, Muscle Weakness, Myalgias, Neck Pain, Numbness, Radiating Pain into Limb, Stiffness, Tingling, Other - Integumentary Integumentary: absent: As Per HPI, Acne, Alopecia, Bleeding Lesions, Change in Hair, Change in Nails, Change in Pigmentation, Changing Lesions, Dry Skin, Erythema, Furuncle, Hirsutism, Lesions, New Lesions, Non-Healing Lesions, Photosensitivity, Pruritus, Rash, Skin Pain, Skin Ulcer, Sores, Striae, Swelling , Unusual Bruising, Wounds, Jaundice, Other - Neurological Neurological: absent: As Per HPI, Abnormal Gait, Abnormal Hearing, Abnormal Movements, Abnormal Speech, Behavioral Changes, Burning Sensations, Confusion, Convulsions, Disequilibrium, Dizziness, Numbness, Focal Weakness, Frequent Falls , Headaches, Lack of Coordination, Loss of Vision, Memory Loss, Paresthesias, Radicular Pain, Restless Legs, Sensory Deficit, Syncope, Tingling, Tremor, Vertigo, Weakness, Other Visual Disturbances, Other - Psychiatric Psychiatric: absent: As Per HPI, Abnormal Sleep Pattern, Anhedonia, Anxiety, Auditory Hallucinations, Behavioral Changes, Change in Appetite, Change in Libido, Confusion, Depression, Difficulty Concentrating, Hallucinations, Homicidal Ideation, Hopelessness, Irritability, Memory Loss, Mood Swings, Panic Attacks, Paranoia, Suicidal Ideation, Visual Hallucinations, Tactile Hallucinations, Other - Endocrine Endocrine: absent: As Per HPI, Change in Body Appearance, Change in Libido, Cold Intolorance, Deepening of Voice, Excessive Sweating, Fatigue, Flushing, Heat Intolorance, Increase in Ring/Shoe/Hat Size, Palpitations, Polydipsia, Polyphagia, Polyuria, Other - Hematologic/Lymphatic Hematologic: absent: As Per HPI, Easy Bleeding, Easy Bruising, Lymphadenopathy, Other Past Patient History - Past Medical History & Family History Past Medical History?: Yes - Past Social History Smoking Status: Never Smoked - CARDIAC Hx Hypertension: Yes - HEENT Hx Blind: Yes - MUSCULOSKELETAL/RHEUMATOLOGICAL Hx Arthritis: Yes - PSYCHIATRIC Hx Substance Use: No - SURGICAL HISTORY Hx Cataract Extraction: Yes - ANESTHESIA Hx Anesthesia: Yes Hx Anesthesia Reactions: No Meds Allergies/Adverse Reactions: Allergies Allergy/AdvReac Type Severity Reaction Status Date / Time SEASONAL Allergy Uncoded 04/11/18 16:37 - Medications Medications: Current Medications Acetaminophen (Tylenol 325mg Tab) 650 mg PO Q6 PRN PRN Reason: Fever >100.4 F Albuterol/Ipratropium (Duoneb 3 Mg/0.5 Mg (3 Ml) Ud) 3 ml INH RQ6 PRN PRN Reason: Wheezing Aspirin (Aspirin Chewable) 81 mg PO DAILY [facility] Budesonide (Pulmicort Respules) 0.5 mg INH RQ12 [facility] Last Admin: 04/11/18 20:00 Dose: 0.5 mg Famotidine (Pepcid) 20 mg PO BID [facility] Heparin Sodium (Porcine) (Heparin) 5,000 units SC Q8 [facility] Last Admin: 04/12/18 06:21 Dose: 5,000 units Azithromycin 500 mg/ Sodium (Chloride) 250 mls @ 250 mls/hr IVPB DAILY [facility] PRN Reason: Protocol Ceftriaxone Sodium 1 gm/ (Sodium Chloride) 100 mls @ 100 mls/hr IVPB Q12H [facility] PRN Reason: Protocol Last Admin: 04/12/18 08:30 Dose: 100 mls/hr Oseltamivir Phosphate (Tamiflu Cap) 75 mg PO BID [facility] PRN Reason: Protocol Stop: 04/16/18 19:12 Physical Exam - Constitutional Appears: Non-toxic - Head Exam Head Exam: NORMAL INSPECTION - Eye Exam Eye Exam: Normal appearance - ENT Exam ENT Exam: Mucous Membranes Moist - Neck Exam Neck exam: Positive for: Normal Inspection - Respiratory Exam Respiratory Exam: Decreased Breath Sounds - Cardiovascular Exam Cardiovascular Exam: REGULAR RHYTHM - GI/Abdominal Exam GI & Abdominal Exam: Normal Bowel Sounds - Rectal Exam Rectal Exam: Deferred - Extremities Exam Extremities exam: Negative for: pedal edema - Back Exam Back exam: NORMAL INSPECTION - Neurological Exam Neurological exam: Alert, Oriented x3 - Psychiatric Exam Psychiatric exam: Normal Affect - Skin Skin Exam: Normal Color Results - Vital Signs Recent Vital Signs: Last Vital Signs Temp 97.4 F L 04/12/18 07:10 Pulse 70 04/12/18 07:10 Resp 20 04/12/18 07:10 BP 134/78 04/12/18 07:10 Pulse Ox 99 04/12/18 07:10 - Labs Result Diagrams: 04/13/18 08:41 04/13/18 08:41 Labs: Laboratory Results - last 24 hr 04/11/18 04/11/18 04/11/18 17:04 17:04 17:04 WBC 14.0 H D RBC 4.74 Hgb 14.2 Hct 40.9 MCV 86.3 MCH 29.9 MCHC 34.7 RDW 14.2 Plt Count 230 MPV 9.8 Neut % (Auto) 87.3 H Lymph % (Auto) 5.2 L Sullivan % (Auto) 7.2 Eos % (Auto) 0.0 Baso % (Auto) 0.3 Neut # (Auto) 12.2 H Lymph # (Auto) 0.7 L Sullivan # (Auto) 1.0 H Eos # (Auto) 0.0 Baso # (Auto) 0.0 Neutrophils % (Manual) 62 Band Neutrophils % 25 H* Lymphocytes % (Manual) 6 L Monocytes % (Manual) 7 Platelet Estimate Normal RBC Morphology Normal PT 13.4 H INR 1.2 APTT 31 D-Dimer, Quantitative 947 H Puncture Site pCO2 pO2 HCO3 ABG pH ABG Total CO2 ABG O2 Saturation ABG Base Excess Prakash Test ABG Potassium VBG pH VBG pCO2 VBG HCO3 VBG Total CO2 VBG O2 Sat (Calc) VBG Base Excess VBG Potassium Glucose Lactate Liter Flow FiO2 Sodium 137 Potassium 3.9 Chloride 99 Carbon Dioxide 20 L Anion Gap 22 H BUN 18 Creatinine 1.4 Est GFR ( Amer) 59 Est GFR (Non-Af Amer) 49 Random Glucose 185 H Calcium 9.5 Phosphorus 1.7 L Magnesium 2.0 Total Bilirubin 2.2 H AST 25 ALT 16 L D Alkaline Phosphatase 107 Total Creatine Kinase 120 CK-MB (Mass) 1.55 Troponin I 0.0580 NT-Pro-B Natriuret Pep 5550 H Total Protein 8.3 Albumin 4.4 Globulin 3.9 Albumin/Globulin Ratio 1.1 Arterial Blood Potassium Venous Blood Potassium Urine Color Urine Clarity Urine pH Ur Specific [place] Urine Protein Urine Glucose (UA) Urine Ketones Urine Blood Urine Nitrate Urine Bilirubin Urine Urobilinogen Ur Leukocyte Esterase Urine WBC (Auto) Urine RBC (Auto) Ur Squamous Epith Cells Urine Bacteria Hyaline Casts Influenza Typ A,B (EIA) 04/11/18 04/11/18 04/11/18 17:32 17:47 17:58 WBC RBC Hgb Hct MCV MCH MCHC RDW Plt Count MPV Neut % (Auto) Lymph % (Auto) Sullivan % (Auto) Eos % (Auto) Baso % (Auto) Neut # (Auto) Lymph # (Auto) Sullivan # (Auto) Eos # (Auto) Baso # (Auto) Neutrophils % (Manual) Band Neutrophils % Lymphocytes % (Manual) Monocytes % (Manual) Platelet Estimate RBC Morphology PT INR APTT D-Dimer, Quantitative Puncture Site Rr pCO2 22 L pO2 63 L HCO3 21.3 ABG pH 7.49 H ABG Total CO2 17.5 L ABG O2 Saturation 95.4 ABG Base Excess -4.5 L Prakash Test Po ABG Potassium 2.8 L VBG pH VBG pCO2 VBG HCO3 VBG Total CO2 VBG O2 Sat (Calc) VBG Base Excess VBG Potassium Glucose 172 H Lactate 2.2 H Liter Flow 3.0 FiO2 Sodium 135.0 Potassium Chloride 105.0 Carbon Dioxide Anion Gap BUN Creatinine Est GFR ( Amer) Est GFR (Non-Af Amer) Random Glucose Calcium Phosphorus Magnesium Total Bilirubin AST ALT Alkaline Phosphatase Total Creatine Kinase CK-MB (Mass) Troponin I NT-Pro-B Natriuret Pep Total Protein Albumin Globulin Albumin/Globulin Ratio Arterial Blood Potassium 2.8 L Venous Blood Potassium Urine Color Narcisa Urine Clarity Clear Urine pH 5.0 Ur Specific [place] 1.017 Urine Protein 2+ H Urine Glucose (UA) Normal Urine Ketones Trace Urine Blood 1+ H Urine Nitrate Negative Urine Bilirubin Negative Urine Urobilinogen 4.0 Ur Leukocyte Esterase Trace Urine WBC (Auto) 13 H Urine RBC (Auto) 7 H Ur Squamous Epith Cells < 1 Urine Bacteria Many H Hyaline Casts 3-5 H Influenza Typ A,B (EIA) Pos for influenza a H 04/11/18 04/11/18 04/12/18 19:55 22:53 07:08 WBC 9.7 RBC 4.51 Hgb 13.6 Hct 39.1 MCV 86.6 MCH 30.1 MCHC 34.7 RDW 14.0 Plt Count 183 MPV 9.7 Neut % (Auto) 90.7 H Lymph % (Auto) 5.6 L Sullivan % (Auto) 3.4 Eos % (Auto) 0.0 Baso % (Auto) 0.3 Neut # (Auto) 8.8 H Lymph # (Auto) 0.5 L Sullivan # (Auto) 0.3 Eos # (Auto) 0.0 Baso # (Auto) 0.0 Neutrophils % (Manual) 65 Band Neutrophils % 26 H* Lymphocytes % (Manual) 6 L Monocytes % (Manual) 3 Platelet Estimate Normal RBC Morphology Normal PT INR APTT D-Dimer, Quantitative Puncture Site pCO2 pO2 28 L HCO3 ABG pH ABG Total CO2 ABG O2 Saturation ABG Base Excess Prakash Test ABG Potassium VBG pH 7.41 VBG pCO2 27 L VBG HCO3 19.1 VBG Total CO2 17.9 L VBG O2 Sat (Calc) 57.2 VBG Base Excess -6.0 L VBG Potassium 2.6 L Glucose 154 H Lactate 2.1 Liter Flow FiO2 21.0 Sodium 137.0 Potassium Chloride 106.0 Carbon Dioxide Anion Gap BUN Creatinine Est GFR ( Amer) Est GFR (Non-Af Amer) Random Glucose Calcium Phosphorus Magnesium Total Bilirubin AST ALT Alkaline Phosphatase Total Creatine Kinase CK-MB (Mass) Troponin I NT-Pro-B Natriuret Pep Total Protein Albumin Globulin Albumin/Globulin Ratio Arterial Blood Potassium Venous Blood Potassium 2.6 L Urine Color Yellow Urine Clarity Clear Urine pH 5.0 Ur Specific [place] 1.006 Urine Protein Negative Urine Glucose (UA) Normal Urine Ketones Trace Urine Blood 2+ H Urine Nitrate Negative Urine Bilirubin Negative Urine Urobilinogen Normal Ur Leukocyte Esterase Trace Urine WBC (Auto) 7 H Urine RBC (Auto) 1 Ur Squamous Epith Cells Urine Bacteria Rare Hyaline Casts 3-5 H Influenza Typ A,B (EIA) 04/12/18 07:08 WBC RBC Hgb Hct MCV MCH MCHC RDW Plt Count MPV Neut % (Auto) Lymph % (Auto) Sullivan % (Auto) Eos % (Auto) Baso % (Auto) Neut # (Auto) Lymph # (Auto) Sullivan # (Auto) Eos # (Auto) Baso # (Auto) Neutrophils % (Manual) Band Neutrophils % Lymphocytes % (Manual) Monocytes % (Manual) Platelet Estimate RBC Morphology PT INR APTT D-Dimer, Quantitative Puncture Site pCO2 pO2 HCO3 ABG pH ABG Total CO2 ABG O2 Saturation ABG Base Excess Prakash Test ABG Potassium VBG pH VBG pCO2 VBG HCO3 VBG Total CO2 VBG O2 Sat (Calc) VBG Base Excess VBG Potassium Glucose Lactate Liter Flow FiO2 Sodium 140 Potassium 3.2 L Chloride 103 Carbon Dioxide 17 L Anion Gap 23 H BUN 18 Creatinine 1.1 Est GFR ( Amer) > 60 Est GFR (Non-Af Amer) > 60 Random Glucose 184 H Calcium 8.4 L Phosphorus 3.1 Magnesium 2.0 Total Bilirubin 1.4 H AST 27 ALT 17 L Alkaline Phosphatase 84 Total Creatine Kinase CK-MB (Mass) Troponin I NT-Pro-B Natriuret Pep Total Protein 7.3 Albumin 3.9 Globulin 3.4 Albumin/Globulin Ratio 1.2 Arterial Blood Potassium Venous Blood Potassium Urine Color Urine Clarity Urine pH Ur Specific [place] Urine Protein Urine Glucose (UA) Urine Ketones Urine Blood Urine Nitrate Urine Bilirubin Urine Urobilinogen Ur Leukocyte Esterase Urine WBC (Auto) Urine RBC (Auto) Ur Squamous Epith Cells Urine Bacteria Hyaline Casts Influenza Typ A,B (EIA) - EKG Data EKG Interpreted by: Myself EKG shows normal: Sinus rhythm Assessment & Plan (1) CAD (coronary artery disease) Assessment and Plan: stable cardiac status. outpatient echocardiogram reveals mild left ventricular dysfunction, mild mitral regurgitation. Continue medical therapy. Status: Acute
[2018-04-12] MEDS: Budesonide 0.5 mg/2 ml Inhal Susp UD INH SCH ×3 (09:18→21:40)
[2018-04-12] MEDS: Albuterol-Ipratrop 3 mg / 0.5 (3 ml) UD INH PRN ×2 (09:18→21:40)
[2018-04-12 09:40] LABS: ABG ALLEN TEST PO; ARTERIAL BLOOD GAS HCO3 22.9 mmol/L (21-28); ARTERIAL BLOOD GAS O2 SAT 97.2 % (95-98); ARTERIAL BLOOD GAS PCO2 25 mm/Hg (35-45); ARTERIAL BLOOD GAS PH 7.49 (7.35-7.45); ARTERIAL BLOOD GAS PO2 79 mm/Hg (80-100); ARTERIAL BLOOD GAS TCO2 19.9 mmol/L (22-28)
[2018-04-12] MEDS ORDERED: Azithromycin 500 MG in Sodium Chloride 0.9% 250 ML IVPB SCH (10:00)
--- NOTE | 2018-04-12 12:28 | CP.PCM.PN ---
Subjective - Date & Time of Evaluation Date of Evaluation: 04/12/18 Time of Evaluation: 12:25 - Subjective Subjective: pt still has sob cough greenish sputum Objective - Vital Signs/Intake and Output Vital Signs (last 24 hours): Temp Pulse Resp BP Pulse Ox 97.4 F L 70 20 134/78 99 04/12/18 07:10 04/12/18 07:10 04/12/18 07:10 04/12/18 07:10 04/12/18 07:10 Intake and Output: 04/12/18 04/12/18 06:59 18:59 Output Total 1550 Balance -1550 - Medications Medications: Current Medications Acetaminophen (Tylenol 325mg Tab) 650 mg PO Q6 PRN PRN Reason: Fever >100.4 F Albuterol/Ipratropium (Duoneb 3 Mg/0.5 Mg (3 Ml) Ud) 3 ml INH RQ6 PRN PRN Reason: Wheezing Last Admin: 04/12/18 09:18 Dose: 3 ml Aspirin (Aspirin Chewable) 81 mg PO DAILY [facility] Last Admin: 04/12/18 10:17 Dose: 81 mg Budesonide (Pulmicort Respules) 0.5 mg INH RQ12 [facility] Last Admin: 04/12/18 09:18 Dose: 0.5 mg Famotidine (Pepcid) 20 mg PO BID [facility] Last Admin: 04/12/18 10:16 Dose: 20 mg Heparin Sodium (Porcine) (Heparin) 5,000 units SC Q8 [facility] Last Admin: 04/12/18 06:21 Dose: 5,000 units Azithromycin 500 mg/ Sodium (Chloride) 250 mls @ 250 mls/hr IVPB DAILY [facility] PRN Reason: Protocol Last Admin: 04/12/18 10:19 Dose: 250 mls/hr Ceftriaxone Sodium 1 gm/ (Sodium Chloride) 100 mls @ 100 mls/hr IVPB Q12H [facility] PRN Reason: Protocol Last Admin: 04/12/18 08:30 Dose: 100 mls/hr Oseltamivir Phosphate (Tamiflu Cap) 75 mg PO BID [facility] PRN Reason: Protocol Stop: 04/16/18 19:12 Last Admin: 04/12/18 10:18 Dose: 75 mg Pneumococcal Polyvalent Vaccine (Pneumovax 23 Vaccine) 0.5 ml IM .ONCE ONE Stop: 04/13/18 10:01 - Labs Labs: 04/12/18 07:08 04/12/18 07:08 PT 13.4 SECONDS (9.7-12.2) H 04/11/18 17:04 INR 1.2 04/11/18 17:04 APTT 31 SECONDS (21-34) 04/11/18 17:04 - Constitutional Appears: In Acute Distress - Head Exam Head Exam: ATRAUMATIC - Eye Exam Eye Exam: Normal appearance Pupil Exam: NORMAL ACCOMODATION - ENT Exam ENT Exam: Mucous Membranes Moist - Neck Exam Neck Exam: Full ROM - Respiratory Exam Respiratory Exam: Decreased Breath Sounds, Rales - Cardiovascular Exam Cardiovascular Exam: REGULAR RHYTHM Additional comments: pace maker rythm - GI/Abdominal Exam GI & Abdominal Exam: Normal Bowel Sounds - Exam Exam: NORMAL INSPECTION - Extremities Exam Extremities Exam: Normal Capillary Refill - Back Exam Back Exam: NORMAL INSPECTION - Neurological Exam Neurological Exam: Oriented x3 - Psychiatric Exam Psychiatric exam: Normal Affect - Skin Skin Exam: Normal Color Assessment and Plan - Assessment and Plan (Free Text) Assessment: acute pnumonia s/p pace maker s/p cardiac surgery Plan: as per orders
[2018-04-12] MEDS ORDERED: guaiFENesin DM 200 mg-20 mg/10 ml UD PO STA (19:19)
--- NOTE | 2018-04-12 19:21 | CP.PCM.CON ---
History of Present Illness - History of Present Illness History of Present Illness: 78 yo M w/ PMHx of HTN, CAD(CABG and pacemaker 2014) and newly diagnosed emphysema, presents to the ED w/ complaints of cough and SOB x 3 days, productive of green sputum. Pt reports fever like symptoms including chills and sweats, dizziness associated w/ cough, and anorexia. Patient also reports constipation x5 days. Patient recently returned from the [facility] 3 weeks ago. He denies chest pain, nausea, vomiting, diarrhea. c/o severe cough fever and weakness Review of Systems - Constitutional Constitutional: Anorexia, Chills - Cardiovascular Cardiovascular: absent: Chest Pain, Edema, Palpitations - Respiratory Respiratory: Cough, Dyspnea, Wheezing, Chest Congestion, Excessive Mucous Production (green sputum). absent: Hemoptysis - Gastrointestinal Gastrointestinal: Constipation (5days). absent: Abdominal Pain, Diarrhea, Nausea, Vomiting - Genitourinary Genitourinary: absent: Difficulty Urinating, Dysuria - Neurological Neurological: Dizziness (with coughing) Review of Systems - Constitutional Constitutional: As Per HPI - EENT Eyes: absent: As Per HPI, Blind Spots, Blurred Vision, Change in Vision, Decreased Night Vision, Diplopia, Discharge, Dry Eye, Exophthalmos, Floaters, Irritation, Itchy Eyes, Loss of Peripheral Vision, Pain, Photophobia, Requires Corrective Lenses, Sees Flashes, Spots in Vision, Tunnel Vision, Other Visual Disturbances, Loss of Vision, Other Ears: absent: As Per HPI, Decreased Hearing, Ear Discharge, Ear Pain, Tinnitus, Abnormal Hearing, Disequilibrium, Dizziness, Other Nose/Mouth/Throat: absent: As Per HPI, Epistaxis, Nasal Congestion, Nasal Discharge, Nasal Obstruction, Nasal Trauma, Nose Pain, Post Nasal Drip, Sinus Pain, Sinus Pressure, Bleeding Gums, Change in Voice, Dental Pain, Dry Mouth, Dysphagia, Halitosis, Hoarsness, Lip Swelling, Mouth Lesions, Mouth Pain, Odynophagia, Sore Throat, Throat Swelling, Tongue Swelling, Facial Pain, Neck Pain, Neck Mass, Other - Cardiovascular Cardiovascular: As Per HPI - Respiratory Respiratory: As Per HPI, Cough. absent: Hemoptysis - Gastrointestinal Gastrointestinal: absent: As Per HPI, Abdominal Pain, Belching, Bloating, Change in Bowel Habits, Change in Stool Character, Coffee Ground Emesis, Constipation, Cramping, Diarrhea, Dyspepsia, Dysphagia, Early Satiety, Excessive Flatus, Fecal Incontinence, Heartburn, Hematemesis, Hematochezia, Loose Stools, Melena, Nausea, Odynophagia, Temesmus, Vomiting, Other - Genitourinary Genitourinary: absent: As Per HPI, Change in Urinary Stream, Difficulty Urinating, Dysuria, Flank Pain, Hematuria, Pyuria, Nocturia, Urinary Incontinence, Urinary Frequency, Urinary Hesitance, Urinary Urgency, Voiding Freq/Small Amts, Freq UTI, Hx Renal/Bladder Calculi, Hx /Renal Surgery, Bladder Distension, Other - Musculoskeletal Musculoskeletal: absent: As Per HPI, Abnormal Gait, Arthralgias, Atrophy, Back Pain, Deformity, Joint Swelling, Limited Range of Motion, Loss of Height, Muscle Cramps, Muscle Weakness, Myalgias, Neck Pain, Numbness, Radiating Pain into Limb, Stiffness, Tingling, Other - Integumentary Integumentary: absent: As Per HPI, Acne, Alopecia, Bleeding Lesions, Change in Hair, Change in Nails, Change in Pigmentation, Changing Lesions, Dry Skin, Erythema, Furuncle, Hirsutism, Lesions, New Lesions, Non-Healing Lesions, Photosensitivity, Pruritus, Rash, Skin Pain, Skin Ulcer, Sores, Striae, Swelling , Unusual Bruising, Wounds, Jaundice, Other - Neurological Neurological: absent: As Per HPI, Abnormal Gait, Abnormal Hearing, Abnormal Movements, Abnormal Speech, Behavioral Changes, Burning Sensations, Confusion, Convulsions, Disequilibrium, Dizziness, Numbness, Focal Weakness, Frequent Falls , Headaches, Lack of Coordination, Loss of Vision, Memory Loss, Paresthesias, Radicular Pain, Restless Legs, Sensory Deficit, Syncope, Tingling, Tremor, Vertigo, Weakness, Other Visual Disturbances, Other - Psychiatric Psychiatric: absent: As Per HPI, Abnormal Sleep Pattern, Anhedonia, Anxiety, Auditory Hallucinations, Behavioral Changes, Change in Appetite, Change in Libido, Confusion, Depression, Difficulty Concentrating, Hallucinations, Homicidal Ideation, Hopelessness, Irritability, Memory Loss, Mood Swings, Panic Attacks, Paranoia, Suicidal Ideation, Visual Hallucinations, Tactile Hallucinations, Other - Endocrine Endocrine: absent: As Per HPI, Change in Body Appearance, Change in Libido, Cold Intolorance, Deepening of Voice, Excessive Sweating, Fatigue, Flushing, Heat Intolorance, Increase in Ring/Shoe/Hat Size, Palpitations, Polydipsia, Polyphagia, Polyuria, Other - Hematologic/Lymphatic Hematologic: absent: As Per HPI, Easy Bleeding, Easy Bruising, Lymphadenopathy, Other Past Patient History - Past Medical History & Family History Past Medical History?: Yes - Past Social History Smoking Status: Never Smoked - CARDIAC Hx Hypertension: Yes - HEENT Hx Blind: Yes - MUSCULOSKELETAL/RHEUMATOLOGICAL Hx Arthritis: Yes - PSYCHIATRIC Hx Substance Use: No - SURGICAL HISTORY Hx Cataract Extraction: Yes - ANESTHESIA Hx Anesthesia: Yes Hx Anesthesia Reactions: No Meds Allergies/Adverse Reactions: Allergies Allergy/AdvReac Type Severity Reaction Status Date / Time SEASONAL Allergy Uncoded 04/11/18 16:37 - Medications Medications: Current Medications Acetaminophen (Tylenol 325mg Tab) 650 mg PO Q6 PRN PRN Reason: Fever >100.4 F Acetaminophen (Tylenol 325mg Tab) 650 mg PO Q6 PRN PRN Reason: Pain, moderate (4-7) Albuterol Sulfate (Albuterol 0.083% Inhal Clare (2.5 Mg/3 Ml) Ud) 2.5 mg INH RQ6 [facility] Aspirin (Aspirin Chewable) 81 mg PO DAILY [facility] Last Admin: 04/12/18 10:17 Dose: 81 mg Budesonide (Pulmicort Respules) 0.5 mg INH RQ12 [facility] Last Admin: 04/12/18 09:18 Dose: 0.5 mg Famotidine (Pepcid) 20 mg PO BID [facility] Last Admin: 04/12/18 17:20 Dose: 20 mg Guaifenesin (Robitussin) 100 mg PO Q4H PRN PRN Reason: Cough Heparin Sodium (Porcine) (Heparin) 5,000 units SC Q8 [facility] Last Admin: 04/12/18 14:56 Dose: 5,000 units Azithromycin 500 mg/ Sodium (Chloride) 250 mls @ 250 mls/hr IVPB DAILY [facility] PRN Reason: Protocol Last Admin: 04/12/18 10:19 Dose: 250 mls/hr Ceftriaxone Sodium 1 gm/ (Sodium Chloride) 100 mls @ 100 mls/hr IVPB Q12H [facility] PRN Reason: Protocol Last Admin: 04/12/18 08:30 Dose: 100 mls/hr Oseltamivir Phosphate (Tamiflu Cap) 75 mg PO BID [facility] PRN Reason: Protocol Stop: 04/16/18 19:12 Last Admin: 04/12/18 17:20 Dose: 75 mg Pneumococcal Polyvalent Vaccine (Pneumovax 23 Vaccine) 0.5 ml IM .ONCE ONE Stop: 04/13/18 10:01 Physical Exam - Constitutional Appears: Non-toxic, Chronically Ill - Head Exam Head Exam: NORMOCEPHALIC - Eye Exam Eye Exam: PERRL. absent: Scleral icterus - ENT Exam ENT Exam: Mucous Membranes Dry, Normal External Ear Exam - Neck Exam Neck exam: Negative for: Lymphadenopathy - Respiratory Exam Respiratory Exam: Decreased Breath Sounds, Prolonged Expiratory Phase, Rhonchi - Cardiovascular Exam Cardiovascular Exam: REGULAR RHYTHM, +S1, +S2 - GI/Abdominal Exam GI & Abdominal Exam: Diminished Bowel Sounds, Soft. absent: Tenderness - Rectal Exam Rectal Exam: Deferred - Exam Exam: NORMAL INSPECTION - Extremities Exam Extremities exam: Positive for: pedal pulses present. Negative for: calf tenderness, pedal edema, tenderness - Back Exam Back exam: absent: CVA tenderness (L), CVA tenderness (R), paraspinal tenderness - Neurological Exam Neurological exam: Alert, CN II-XII Intact, Oriented x3, Reflexes Normal - Psychiatric Exam Psychiatric exam: Normal Mood - Skin Skin Exam: Dry, Intact Results - Vital Signs Recent Vital Signs: Last Vital Signs Temp 97.5 F L 04/12/18 16:00 Pulse 70 04/12/18 16:00 Resp 20 04/12/18 16:00 BP 159/93 H 04/12/18 16:00 Pulse Ox 97 04/12/18 16:00 - Labs Result Diagrams: 04/12/18 07:08 04/12/18 07:08 Labs: Laboratory Results - last 24 hr 04/11/18 04/11/18 04/11/18 19:55 22:52 22:53 WBC RBC Hgb Hct MCV MCH MCHC RDW Plt Count MPV Neut % (Auto) Lymph % (Auto) Barron % (Auto) Eos % (Auto) Baso % (Auto) Neut # (Auto) Lymph # (Auto) Barron # (Auto) Eos # (Auto) Baso # (Auto) Neutrophils % (Manual) Band Neutrophils % Lymphocytes % (Manual) Monocytes % (Manual) Platelet Estimate RBC Morphology Puncture Site pCO2 pO2 28 L HCO3 ABG pH ABG Total CO2 ABG O2 Saturation ABG Base Excess Prakash Test ABG Potassium VBG pH 7.41 VBG pCO2 27 L VBG HCO3 19.1 VBG Total CO2 17.9 L VBG O2 Sat (Calc) 57.2 VBG Base Excess -6.0 L VBG Potassium 2.6 L A-a O2 Difference Respiratory Index Sodium 137.0 Chloride 106.0 Glucose 154 H Lactate 2.1 Liter Flow FiO2 21.0 Potassium Carbon Dioxide Anion Gap BUN Creatinine Est GFR ( Amer) Est GFR (Non-Af Amer) Random Glucose Calcium Phosphorus Magnesium Total Bilirubin AST ALT Alkaline Phosphatase Total Protein Albumin Globulin Albumin/Globulin Ratio Procalcitonin 7.19 H Arterial Blood Potassium Venous Blood Potassium 2.6 L Urine Color Yellow Urine Clarity Clear Urine pH 5.0 Ur Specific [place] 1.006 Urine Protein Negative Urine Glucose (UA) Normal Urine Ketones Trace Urine Blood 2+ H Urine Nitrate Negative Urine Bilirubin Negative Urine Urobilinogen Normal Ur Leukocyte Esterase Trace Urine WBC (Auto) 7 H Urine RBC (Auto) 1 Urine Bacteria Rare Hyaline Casts 3-5 H 04/12/18 04/12/18 04/12/18 07:08 07:08 09:37 WBC 9.7 RBC 4.51 Hgb 13.6 Hct 39.1 MCV 86.6 MCH 30.1 MCHC 34.7 RDW 14.0 Plt Count 183 MPV 9.7 Neut % (Auto) 90.7 H Lymph % (Auto) 5.6 L Barron % (Auto) 3.4 Eos % (Auto) 0.0 Baso % (Auto) 0.3 Neut # (Auto) 8.8 H Lymph # (Auto) 0.5 L Barron # (Auto) 0.3 Eos # (Auto) 0.0 Baso # (Auto) 0.0 Neutrophils % (Manual) 65 Band Neutrophils % 26 H* Lymphocytes % (Manual) 6 L Monocytes % (Manual) 3 Platelet Estimate Normal RBC Morphology Normal Puncture Site Rra pCO2 25 L pO2 79 L HCO3 22.9 ABG pH 7.49 H ABG Total CO2 19.9 L ABG O2 Saturation 97.2 ABG Base Excess -2.6 L Prakash Test Po ABG Potassium 2.8 L VBG pH VBG pCO2 VBG HCO3 VBG Total CO2 VBG O2 Sat (Calc) VBG Base Excess VBG Potassium A-a O2 Difference 89.0 Respiratory Index 1.1 Sodium 140 137.0 Chloride 103 106.0 Glucose 209 H Lactate 1.9 Liter Flow 2.0 FiO2 28.0 Potassium 3.2 L Carbon Dioxide 17 L Anion Gap 23 H BUN 18 Creatinine 1.1 Est GFR ( Amer) > 60 Est GFR (Non-Af Amer) > 60 Random Glucose 184 H Calcium 8.4 L Phosphorus 3.1 Magnesium 2.0 Total Bilirubin 1.4 H AST 27 ALT 17 L Alkaline Phosphatase 84 Total Protein 7.3 Albumin 3.9 Globulin 3.4 Albumin/Globulin Ratio 1.2 Procalcitonin Arterial Blood Potassium 2.8 L Venous Blood Potassium Urine Color Urine Clarity Urine pH Ur Specific [place] Urine Protein Urine Glucose (UA) Urine Ketones Urine Blood Urine Nitrate Urine Bilirubin Urine Urobilinogen Ur Leukocyte Esterase Urine WBC (Auto) Urine RBC (Auto) Urine Bacteria Hyaline Casts Assessment & Plan (1) Influenza Status: Acute (2) Pneumonia Status: Acute (3) Sepsis Status: Acute (4) Bradycardia Status: Acute - Assessment and Plan (Free Text) Assessment: nodular infiltrates with chronic cough + Influenza recent travel to [facility] on Isolation cont tamiflu, avelox, rocephin
--- NOTE | 2018-04-12 20:06 | CARD ---
APPROVED REPORT Date of service: 04/12/2018 EXAM: Two-dimensional and M-mode echocardiogram with Doppler and color Doppler. Other Information Quality : Technically LimitedRhythm : INDICATION Congestive Heart Failure 2D DIMENSIONS IVSd1.5 (0.7-1.1cm)LVDd4.5 (3.9-5.9cm) LVOT Diameter1.8 (1.8-2.4cm)PWd1.2 (0.7-1.1cm) LVDs3.5 (2.5-4.0cm)FS (%) 22.9 % LVEF (%)46.2 (>50%) M-Mode DIMENSIONS Left Atrium (MM)5.53 (2.5-4.0cm)Aortic Root3.50 (2.2-3.7cm) Aortic Cusp Exc.2.32 (1.5-2.0cm) Mitral Valve MV E Ufjakuqe29.5cm/sMV A Efindqph04.6cm/sE/A ratio2.9 TDI E/Lateral E'0.0E/Medial E'0.0 Tricuspid Valve TR Peak [id number]/sTR Peak Gr.[id number] LEFT VENTRICLE The left ventricle is normal size. There is normal left ventricular wall thickness. The left ventricular function is normal. The left ventricular ejection fraction is within the normal range. No regional wall motion abnormalities noted. No left ventricle thrombus noted on this study. There is no ventricular septal defect visualized. There is no left ventricular aneurysm. There is no mass noted in the left ventricle. RIGHT VENTRICLE The right ventricle is normal size. There is normal right ventricular wall thickness. The right ventricular systolic function is normal. ATRIA The left atrium is moderately dilated. The right atrium size is normal. The interatrial septum is intact with no evidence for an atrial septal defect. AORTIC VALVE The aortic valve is normal in structure and function. No aortic regurgitation is present. There is no aortic valvular stenosis. There is no aortic valvular vegetation. MITRAL VALVE The mitral valve is normal in structure and function. There is no evidence of mitral valve prolapse. There is no mitral valve stenosis. Mitral regurgitation is mild to moderate. TRICUSPID VALVE The tricuspid valve is normal in structure and function. There is mild tricuspid regurgitation. Right ventricular systolic pressure is estimated at 30-40 mmHg. There is no tricuspid valve prolapse or vegetation. There is no tricuspid valve stenosis. PULMONIC VALVE The pulmonary valve is normal in structure and function. There is no pulmonic valvular regurgitation. There is no pulmonic valvular stenosis. GREAT VESSELS The aortic root is normal in size. The ascending aorta is normal in size. The pulmonary artery is normal. The IVC is normal in size and collapses >50% with inspiration. PERICARDIAL EFFUSION The pericardium appears normal. There is no pleural effusion. <Conclusion> The left ventricular function is normal. The left ventricular ejection fraction is within the normal range. No regional wall motion abnormalities noted. The left atrium is moderately dilated. Mitral regurgitation is mild to moderate.
[2018-04-12] MEDS ORDERED: Iodixanol 320 MG/ML 100 ML BOTTLE IV ONE (20:12)
[2018-04-12] MEDS: Albuterol 0.083% Inhal Sol (2.5 mg/3 mL) UD INH SCH ×2 (20:16→21:40)
[2018-04-13] MEDS: Albuterol 0.083% Inhal Sol (2.5 mg/3 mL) UD INH SCH ×4 (02:16→19:51)
[2018-04-13] MEDS: guaiFENesin 100 mg/5 ml Syrup UD PO PRN ×2 (05:30→14:12)
[2018-04-13] MEDS: Budesonide 0.5 mg/2 ml Inhal Susp UD INH SCH ×2 (07:58→19:51)
[2018-04-13 09:00] LABS: BASO # 0.1 K/uL (0.0-0.2); BASO % 0.4 % (0.0-2.0); EOS % 0.1 % (0.0-4.0); HEMOGLOBIN 13.1 g/dL (12.0-18.0); LYMPH # 1.1 K/uL (1.0-4.3); LYMPH % 7.5 % (20.0-40.0); MEAN CELL VOLUME 86.5 fL (80.0-94.0); MEAN CORPUSCULAR HEMOGLOBIN 30.4 pg (27.0-31.0); MEAN CORPUSCULAR HGB CONC 35.1 g/dL (33.0-37.0); MEAN PLATELET VOLUME 10.3 fL (7.2-11.7); MONO # 0.9 K/uL (0.0-0.8); MONO % 6.3 % (0.0-10.0); NEUT # 12.2 K/uL (1.8-7.0); NEUT % 85.7 % (50.0-75.0); PLATELET COUNT 193 K/uL (130-400); RBC 4.31 Mil/uL (4.40-5.90); RED CELL DISTRIBUTION WIDTH 13.7 % (11.5-14.5); WHITE BLOOD COUNT 14.2 K/uL (4.8-10.8)
--- NOTE | 2018-04-13 09:05 | CP.PCM.PN ---
Subjective - Date & Time of Evaluation Date of Evaluation: 04/13/18 Time of Evaluation: 09:03 - Subjective Subjective: still sob coughing green sputum Objective - Vital Signs/Intake and Output Vital Signs (last 24 hours): Temp Pulse Resp BP Pulse Ox 97.8 F 70 20 135/80 97 04/12/18 23:30 04/13/18 08:01 04/12/18 23:30 04/12/18 23:30 04/12/18 23:30 Intake and Output: 04/13/18 04/13/18 06:59 18:59 Intake Total 420 Output Total 400 Balance 20 - Medications Medications: Current Medications Acetaminophen (Tylenol 325mg Tab) 650 mg PO Q6 PRN PRN Reason: Fever >100.4 F Acetaminophen (Tylenol 325mg Tab) 650 mg PO Q6 PRN PRN Reason: Pain, moderate (4-7) Albuterol Sulfate (Albuterol 0.083% Inhal Clare (2.5 Mg/3 Ml) Ud) 2.5 mg INH RQ6 [facility] Last Admin: 04/13/18 07:57 Dose: 2.5 mg Aspirin (Aspirin Chewable) 81 mg PO DAILY [facility] Last Admin: 04/12/18 10:17 Dose: 81 mg Budesonide (Pulmicort Respules) 0.5 mg INH RQ12 [facility] Last Admin: 04/13/18 07:58 Dose: 0.5 mg Famotidine (Pepcid) 20 mg PO BID [facility] Last Admin: 04/12/18 17:20 Dose: 20 mg Guaifenesin (Robitussin) 100 mg PO Q4H PRN PRN Reason: Cough Last Admin: 04/13/18 05:30 Dose: 100 mg Heparin Sodium (Porcine) (Heparin) 5,000 units SC Q8 [facility] Last Admin: 04/13/18 05:25 Dose: 5,000 units Ceftriaxone Sodium 1 gm/ (Sodium Chloride) 100 mls @ 100 mls/hr IVPB Q12H [facility] PRN Reason: Protocol Last Admin: 04/13/18 06:29 Dose: 100 mls/hr Moxifloxacin HCl (Avelox) 400 mg PO Q24H [facility] PRN Reason: Protocol Last Admin: 04/12/18 19:46 Dose: 400 mg Oseltamivir Phosphate (Tamiflu Cap) 75 mg PO BID [facility] PRN Reason: Protocol Stop: 04/16/18 19:12 Last Admin: 04/12/18 17:20 Dose: 75 mg Pneumococcal Polyvalent Vaccine (Pneumovax 23 Vaccine) 0.5 ml IM .ONCE ONE Stop: 04/13/18 10:01 - Labs Labs: 04/12/18 07:08 04/12/18 07:08 PT 13.4 SECONDS (9.7-12.2) H 04/11/18 17:04 INR 1.2 04/11/18 17:04 APTT 31 SECONDS (21-34) 04/11/18 17:04 - Constitutional Appears: Non-toxic - Head Exam Head Exam: NORMAL INSPECTION - Eye Exam Eye Exam: Normal appearance Pupil Exam: NORMAL ACCOMODATION - ENT Exam ENT Exam: Mucous Membranes Moist - Neck Exam Neck Exam: Normal Inspection - Respiratory Exam Respiratory Exam: Decreased Breath Sounds, Rales, Wheezes - Cardiovascular Exam Cardiovascular Exam: REGULAR RHYTHM - GI/Abdominal Exam GI & Abdominal Exam: Normal Bowel Sounds - Rectal Exam Rectal Exam: NORMAL INSPECTION - Exam Exam: NORMAL INSPECTION - Extremities Exam Extremities Exam: Normal Inspection - Back Exam Back Exam: NORMAL INSPECTION - Neurological Exam Neurological Exam: Alert, Awake, Oriented x3 - Psychiatric Exam Psychiatric exam: Normal Mood - Skin Skin Exam: Normal Color Assessment and Plan - Assessment and Plan (Free Text) Assessment: ac [id number] ac exa copd Plan: as per orders
[2018-04-13 09:07] LABS: ALBUMIN 3.6 g/dL (3.5-5.0); ALT/SGPT 39 U/L (21-72); AST/SGOT 56 U/L (17-59); BLOOD UREA NITROGEN 29 mg/dL (9-20); CALCIUM 8.7 mg/dl (8.6-10.4); GFR NON-AFRICAN AMERICAN 59
[2018-04-13 09:35] LABS: BANDS 7 % (0-2); LYMPHOCYTE 11 % (20-40); MONOCYTE 9 % (0-10); NEUTROPHIL 73 % (50-75); TOTAL CELLS COUNTED 100
[2018-04-13 09:36] LABS: LARGE PLATELETS PRESENT; PLATELET ESTIMATE NORMAL (NORMAL)
[2018-04-13] MEDS ORDERED: Pneumococcal 23-Valent Vaccine IM ONE (10:00)
[2018-04-13] MEDS: Potassium Chloride 20 mEq ER Tab PO SCH (10:13)
--- NOTE | 2018-04-13 11:33 | CT ---
Date of service: 04/12/2018 PROCEDURE: CT Chest with contrast (Pulmonary Angiogram) HISTORY: sob, dimer COMPARISON: Portable chest 04/12/2018. TECHNIQUE: Axial computed tomography images were obtained of the chest in the pulmonary arterial phase of enhancement. Coronal and sagittal reformatted images were created and reviewed. Intravenous contrast dose: Visipaque 320, 100 cc Radiation dose: Total exam DLP = 513.96 mGy-cm. This CT exam was performed using one or more of the following dose reduction techniques: Automated exposure control, adjustment of the mA and/or kV according to patient size, and/or use of iterative reconstruction technique. FINDINGS: PULMONARY ARTERIES: Unremarkable. No pulmonary embolism. 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 The main pulmonary artery measures 3.6 cm. Pulmonary artery hypertension is not excluded. Left atrial enlargement is identified. Further clinical correlation is advised. Cardiomegaly is noted. No definite pulmonary vascular congestion. LUNGS: Bilateral pulmonary fibrosis is appreciated with questioned interval alveolar component at the right upper and lower lobes as well as minimally at the left upper lobe and left lower lobe base. Accompanying ground-glass opacity seen with infiltrates. Trace associated honeycombing is also appreciated. PLEURAL SPACES: Unremarkable. No effusion or pneumothorax. HEART: Cardiomegaly is noted as discussed above without pericardial effusion. LYMPH NODES: Are confluent right hilar adenopathy identified. BONES, CHEST WALL: Median sternotomy noted, post CABG. No fracture or destructive lesion OTHER FINDINGS: Bilateral renal cysts. Cholelithiasis and gallbladder. Potential hyperdense cyst left kidney versus parenchymal calcifications. IMPRESSION: No definite CT evidence of pulmonary embolus as discussed above. Advanced chronic interstitial pulmonary disease appreciate with potential acute subacute alveolar and ground-glass interstitial components as discussed above. Limited honeycombing is noted. Moderate right hilar adenopathy appreciable. Cardiomegaly. Dilated ascending thoracic aorta normalizing in caliber by aortic arch. Other lesser findings as discussed above. Concordant preliminary report from [facility], 04/12/2018.
[2018-04-14] MEDS: Albuterol 0.083% Inhal Sol (2.5 mg/3 mL) UD INH SCH ×4 (02:20→19:44)
[2018-04-14 06:53] LABS: BASO % 0.3 % (0.0-2.0); EOS % 0.2 % (0.0-4.0); HEMOGLOBIN 12.5 g/dL (12.0-18.0); LYMPH # 1.1 K/uL (1.0-4.3); LYMPH % 8.4 % (20.0-40.0); MEAN CORPUSCULAR HEMOGLOBIN 29.3 pg (27.0-31.0); MEAN CORPUSCULAR HGB CONC 33.7 g/dL (33.0-37.0); MEAN PLATELET VOLUME 9.7 fL (7.2-11.7); MONO % 7.7 % (0.0-10.0); NEUT % 83.4 % (50.0-75.0); PLATELET COUNT 183 K/uL (130-400); RBC 4.27 Mil/uL (4.40-5.90); WHITE BLOOD COUNT 13.1 K/uL (4.8-10.8)
[2018-04-14] MEDS: Budesonide 0.5 mg/2 ml Inhal Susp UD INH SCH ×2 (07:10→19:44)
[2018-04-14 07:39] LABS: ALB/GLOB RATIO 1.1 (1.0-2.1); ALBUMIN 3.4 g/dL (3.5-5.0); ALT/SGPT 120 U/L (21-72); AST/SGOT 95 U/L (17-59); BLOOD UREA NITROGEN 19 mg/dL (9-20); CALCIUM 8.4 mg/dl (8.6-10.4); GFR NON-AFRICAN AMERICAN 59
[2018-04-14 08:54] LABS: LYMPHOCYTE 11 % (20-40); MONOCYTE 4 % (0-10); NEUTROPHIL 85 % (50-75); TOTAL CELLS COUNTED 100
[2018-04-14 08:55] LABS: PLATELET ESTIMATE NORMAL (NORMAL)
[2018-04-14] MEDS: Potassium Chloride 20 mEq ER Tab PO SCH (09:55)
--- NOTE | 2018-04-14 11:06 | CP.PCM.PN ---
Subjective - Date & Time of Evaluation Date of Evaluation: 04/14/18 Time of Evaluation: 09:00 - Subjective Subjective: iv rx in progress alert responsive Objective - Vital Signs/Intake and Output Vital Signs (last 24 hours): Temp Pulse Resp BP Pulse Ox 98.3 F 82 20 169/83 H 97 04/14/18 07:00 04/14/18 07:00 04/14/18 07:00 04/14/18 07:00 04/14/18 07:00 - Medications Medications: Current Medications Acetaminophen (Tylenol 325mg Tab) 650 mg PO Q6 PRN PRN Reason: Fever >100.4 F Acetaminophen (Tylenol 325mg Tab) 650 mg PO Q6 PRN PRN Reason: Pain, moderate (4-7) Albuterol Sulfate (Albuterol 0.083% Inhal [place] (2.5 Mg/3 Ml) Ud) 2.5 mg INH RQ6 [facility] Last Admin: 04/14/18 07:10 Dose: 2.5 mg Aspirin (Aspirin Chewable) 81 mg PO DAILY [facility] Last Admin: 04/14/18 09:55 Dose: 81 mg Budesonide (Pulmicort Respules) 0.5 mg INH RQ12 [facility] Last Admin: 04/14/18 07:10 Dose: 0.5 mg Famotidine (Pepcid) 20 mg PO BID [facility] Last Admin: 04/14/18 09:55 Dose: 20 mg Guaifenesin (Robitussin) 100 mg PO Q4H PRN PRN Reason: Cough Last Admin: 04/13/18 14:12 Dose: 100 mg Heparin Sodium (Porcine) (Heparin) 5,000 units SC Q8 [facility] Last Admin: 04/14/18 06:39 Dose: 5,000 units Ceftriaxone Sodium 1 gm/ (Sodium Chloride) 100 mls @ 100 mls/hr IVPB Q12H [facility] PRN Reason: Protocol Last Admin: 04/14/18 06:39 Dose: 100 mls/hr Moxifloxacin HCl (Avelox) 400 mg PO Q24H [facility] PRN Reason: Protocol Last Admin: 04/13/18 19:23 Dose: 400 mg Oseltamivir Phosphate (Tamiflu Cap) 75 mg PO BID [facility] PRN Reason: Protocol Stop: 04/16/18 19:12 Last Admin: 04/14/18 09:55 Dose: 75 mg Potassium Chloride (K-Dur 20 Meq Er Tab) 40 meq PO DAILY [facility] Last Admin: 04/14/18 09:55 Dose: 40 meq - Labs Labs: 04/14/18 06:38 04/14/18 06:38 PT 13.4 SECONDS (9.7-12.2) H 04/11/18 17:04 INR 1.2 04/11/18 17:04 APTT 31 SECONDS (21-34) 04/11/18 17:04 - Constitutional Appears: Non-toxic, Chronically Ill - Head Exam Head Exam: NORMOCEPHALIC - Eye Exam Eye Exam: PERRL - ENT Exam ENT Exam: Mucous Membranes Dry - Neck Exam Neck Exam: absent: Lymphadenopathy - Respiratory Exam Respiratory Exam: Decreased Breath Sounds - Cardiovascular Exam Cardiovascular Exam: REGULAR RHYTHM - GI/Abdominal Exam GI & Abdominal Exam: Distended, Soft - Rectal Exam Rectal Exam: Deferred - Exam Exam: NORMAL INSPECTION Assessment and Plan (1) Influenza Status: Acute (2) Pneumonia Status: Acute (3) Sepsis Status: Acute (4) Bradycardia Status: Acute
[2018-04-14] MEDS: Nystatin 100,000 Units/ml Oral Susp 5 ml UD PO SCH ×3 (14:36→22:28)
--- NOTE | 2018-04-14 18:07 | CP.PCM.PN ---
Subjective - Date & Time of Evaluation Date of Evaluation: 04/14/18 Time of Evaluation: 18:05 - Subjective Subjective: still coughing and congested slightly beter Objective - Vital Signs/Intake and Output Vital Signs (last 24 hours): Temp Pulse Resp BP Pulse Ox 98.2 F 73 20 147/89 97 04/14/18 16:15 04/14/18 16:21 04/14/18 16:15 04/14/18 16:15 04/14/18 16:15 Intake and Output: 04/14/18 04/14/18 06:59 18:59 Intake Total 300 Output Total 300 Balance 0 - Medications Medications: Current Medications Acetaminophen (Tylenol 325mg Tab) 650 mg PO Q6 PRN PRN Reason: Fever >100.4 F Acetaminophen (Tylenol 325mg Tab) 650 mg PO Q6 PRN PRN Reason: Pain, moderate (4-7) Albuterol Sulfate (Albuterol 0.083% Inhal [place] (2.5 Mg/3 Ml) Ud) 2.5 mg INH RQ6 [facility] Last Admin: 04/14/18 13:22 Dose: 2.5 mg Aspirin (Aspirin Chewable) 81 mg PO DAILY [facility] Last Admin: 04/14/18 09:55 Dose: 81 mg Budesonide (Pulmicort Respules) 0.5 mg INH RQ12 [facility] Last Admin: 04/14/18 07:10 Dose: 0.5 mg Famotidine (Pepcid) 20 mg PO BID [facility] Last Admin: 04/14/18 17:22 Dose: 20 mg Guaifenesin (Robitussin) 100 mg PO Q4H PRN PRN Reason: Cough Last Admin: 04/13/18 14:12 Dose: 100 mg Heparin Sodium (Porcine) (Heparin) 5,000 units SC Q8 [facility] Last Admin: 04/14/18 14:36 Dose: 5,000 units Ceftriaxone Sodium 1 gm/ (Sodium Chloride) 100 mls @ 100 mls/hr IVPB Q12H [facility] PRN Reason: Protocol Last Admin: 04/14/18 06:39 Dose: 100 mls/hr Moxifloxacin HCl (Avelox) 400 mg PO Q24H [facility] PRN Reason: Protocol Last Admin: 04/13/18 19:23 Dose: 400 mg Nystatin (Nystatin Oral Susp) 5 ml PO QID [facility] Last Admin: 04/14/18 17:22 Dose: 5 ml Oseltamivir Phosphate (Tamiflu Cap) 75 mg PO BID [facility] PRN Reason: Protocol Stop: 04/16/18 19:12 Last Admin: 04/14/18 17:22 Dose: 75 mg Potassium Chloride (K-Dur 20 Meq Er Tab) 40 meq PO DAILY [facility] Last Admin: 04/14/18 09:55 Dose: 40 meq - Labs Labs: 04/14/18 06:38 04/14/18 06:38 PT 13.4 SECONDS (9.7-12.2) H 04/11/18 17:04 INR 1.2 04/11/18 17:04 APTT 31 SECONDS (21-34) 04/11/18 17:04 - Constitutional Appears: Non-toxic - Head Exam Head Exam: NORMAL INSPECTION - Eye Exam Eye Exam: Normal appearance Pupil Exam: NORMAL ACCOMODATION - ENT Exam ENT Exam: Normal Exam - Neck Exam Neck Exam: Normal Inspection - Respiratory Exam Respiratory Exam: Decreased Breath Sounds, Rales, Respiratory Distress - Cardiovascular Exam Cardiovascular Exam: REGULAR RHYTHM - GI/Abdominal Exam GI & Abdominal Exam: Normal Bowel Sounds - Extremities Exam Extremities Exam: Full ROM - Back Exam Back Exam: NORMAL INSPECTION - Neurological Exam Neurological Exam: Normal Gait - Psychiatric Exam Psychiatric exam: Normal Mood - Skin Skin Exam: Abrasion Assessment and Plan - Assessment and Plan (Free Text) Assessment: acute pnumonia Plan: cont same as per orders
[2018-04-15] MEDS: guaiFENesin 100 mg/5 ml Syrup UD PO PRN ×2 (01:11→06:19)
[2018-04-15] MEDS: Albuterol 0.083% Inhal Sol (2.5 mg/3 mL) UD INH SCH ×2 (03:03→07:10)
[2018-04-15] MEDS: Budesonide 0.5 mg/2 ml Inhal Susp UD INH SCH (07:10)
[2018-04-15] MEDS: Potassium Chloride 20 mEq ER Tab PO SCH (09:54)
[2018-04-15] MEDS: Nystatin 100,000 Units/ml Oral Susp 5 ml UD PO SCH ×4 (09:54→22:05)
--- NOTE | 2018-04-15 10:07 | CP.PCM.PN ---
Subjective - Date & Time of Evaluation Date of Evaluation: 04/15/18 Time of Evaluation: 10:05 - Subjective Subjective: less oriented today and sleepy liver enzys up k low Objective - Vital Signs/Intake and Output Vital Signs (last 24 hours): Temp Pulse Resp BP Pulse Ox 98.1 F 71 20 162/84 H 96 04/15/18 07:40 04/15/18 07:40 04/15/18 07:40 04/15/18 07:40 04/15/18 07:40 Intake and Output: 04/15/18 04/15/18 06:59 18:59 Intake Total 240 Balance 240 - Medications Medications: Current Medications Acetaminophen (Tylenol 325mg Tab) 650 mg PO Q6 PRN PRN Reason: Fever >100.4 F Acetaminophen (Tylenol 325mg Tab) 650 mg PO Q6 PRN PRN Reason: Pain, moderate (4-7) Albuterol Sulfate (Albuterol 0.083% Inhal Clare (2.5 Mg/3 Ml) Ud) 2.5 mg INH RQ6 [facility] Last Admin: 04/15/18 07:10 Dose: 2.5 mg Aspirin (Aspirin Chewable) 81 mg PO DAILY [facility] Last Admin: 04/15/18 09:54 Dose: 81 mg Budesonide (Pulmicort Respules) 0.5 mg INH RQ12 [facility] Last Admin: 04/15/18 07:10 Dose: 0.5 mg Famotidine (Pepcid) 20 mg PO BID [facility] Last Admin: 04/15/18 09:54 Dose: 20 mg Guaifenesin (Robitussin) 100 mg PO Q4H PRN PRN Reason: Cough Last Admin: 04/15/18 06:19 Dose: 100 mg Moxifloxacin HCl (Avelox) 400 mg PO Q24H [facility] PRN Reason: Protocol Last Admin: 04/14/18 19:03 Dose: 400 mg Nystatin (Nystatin Oral Susp) 5 ml PO QID [facility] Last Admin: 04/15/18 09:54 Dose: 5 ml Potassium Chloride (K-Dur 20 Meq Er Tab) 40 meq PO DAILY [facility] Last Admin: 04/15/18 09:54 Dose: 40 meq - Labs Labs: 04/14/18 06:38 04/14/18 06:38 PT 13.4 SECONDS (9.7-12.2) H 04/11/18 17:04 INR 1.2 04/11/18 17:04 APTT 31 SECONDS (21-34) 04/11/18 17:04 - Constitutional Appears: Non-toxic - Head Exam Head Exam: ATRAUMATIC - Eye Exam Eye Exam: Normal appearance - Neck Exam Neck Exam: Full ROM - Respiratory Exam Respiratory Exam: Decreased Breath Sounds, Rales - Cardiovascular Exam Cardiovascular Exam: REGULAR RHYTHM - GI/Abdominal Exam GI & Abdominal Exam: Normal Bowel Sounds Assessment and Plan - Assessment and Plan (Free Text) Assessment: ac hepatitis non sp hypokaleamia pnumonia Plan: as per orders
[2018-04-15] MEDS ORDERED: MethylPREDNISolone 40 mg Vial IVP SCH (12:18)
[2018-04-15 12:49] LABS: ARTERIAL BLOOD GAS HCO3 25.6 mmol/L (21-28); ARTERIAL BLOOD GAS HEMOGLOBIN 13.9 g/dL (11.7-17.4); ARTERIAL BLOOD GAS O2 SAT 96.7 % (95-98); ARTERIAL BLOOD GAS PCO2 31 mm/Hg (35-45); ARTERIAL BLOOD GAS PH 7.49 (7.35-7.45); ARTERIAL BLOOD GAS PO2 75 mm/Hg (80-100); ARTERIAL BLOOD GAS TCO2 24.6 mmol/L (22-28)
[2018-04-15 13:11] LABS: BASO # 0.1 K/uL (0.0-0.2); BASO % 0.4 % (0.0-2.0); EOS # 0.4 K/uL (0.0-0.7); EOS % 2.6 % (0.0-4.0); LYMPH # 1.2 K/uL (1.0-4.3); LYMPH % 7.6 % (20.0-40.0); MEAN CELL VOLUME 86.3 fL (80.0-94.0); MEAN CORPUSCULAR HEMOGLOBIN 29.9 pg (27.0-31.0); MEAN CORPUSCULAR HGB CONC 34.7 g/dL (33.0-37.0); MEAN PLATELET VOLUME 9.6 fL (7.2-11.7); MONO # 1.4 K/uL (0.0-0.8); MONO % 8.9 % (0.0-10.0); NEUT # 12.4 K/uL (1.8-7.0); NEUT % 80.5 % (50.0-75.0); PLATELET COUNT 188 K/uL (130-400); RBC 4.35 Mil/uL (4.40-5.90); RED CELL DISTRIBUTION WIDTH 13.6 % (11.5-14.5); WHITE BLOOD COUNT 15.4 K/uL (4.8-10.8)
--- NOTE | 2018-04-15 13:14 | RAD ---
Date of service: 04/15/2018 HISTORY: WORSENING SOB COMPARISON: Portable chest 04/12/2018. FINDINGS: LUNGS: Multifocal infiltrate identified diffusely throughout the right chest and the mid left lung zone suspicious for aspiration pneumonia. PLEURA: No significant pleural effusion identified, no pneumothorax apparent. CARDIOVASCULAR: Cardiomegaly appears stable. No definite pulmonary vascular congestion. Post CABG changes are reiterated as well as unipolar permanent cardiac pacemaker. OSSEOUS STRUCTURES: No significant abnormalities. VISUALIZED UPPER ABDOMEN: Normal. OTHER FINDINGS: None. IMPRESSION: Marked interval worsening of right-sided infiltrate which is now diffuse with prominent left mid lung zone pneumonia. Consider possible aspiration pneumonia. Clinically correlate further. Cardiomegaly appears stable.
[2018-04-15 13:22] LABS: ALBUMIN 3.5 g/dL (3.5-5.0); ALT/SGPT 79 U/L (21-72); AST/SGOT 37 U/L (17-59); BLOOD UREA NITROGEN 14 mg/dL (9-20); CALCIUM 8.6 mg/dl (8.6-10.4); GFR NON-AFRICAN AMERICAN > 60
[2018-04-15 13:26] LABS: B-TYPE NATRIURETIC PEPTIDE 6370 pg/mL (0-900)
[2018-04-15 13:33] LABS: EOSINOPHIL 4 % (0-4); LYMPHOCYTE 9 % (20-40); MONOCYTE 8 % (0-10); NEUTROPHIL 79 % (50-75); PLATELET ESTIMATE NORMAL (NORMAL); TOTAL CELLS COUNTED 100
--- NOTE | 2018-04-15 13:54 | CP.PCM.CON ---
<Mohsen Gomez - Last Filed: 04/15/18 18:29> History of Present Illness - History of Present Illness History of Present Illness: Mohsen Gomez DO PGY-1, ICU consult note for Dr. Sutherland CC: SOB Pt chart and records were reviewed prior to evaluation. This is a 78 year old male with PMHx of CAD s/p CABG, pacemaker, recently diagnosed Emphysema, HTN who was BIBA on 04/11/18 due to a 10 day history of worsening sob with cough productive of green sputum. In the ED, pt noted to have leukocytosis with 25 bands, BNP 5550, lactate 2.2, flu positive. Code sepsis was called. Pt received 80 mg of lasix IVP in the ED, as well as IVF. Admitted for sepsis secondary to pneumonia and CHF exacerbation. ICU was consulted due to SOB and increased work of breathing. Pt was seen and examined at bedside. Pt reports that he has had worsening shortness of breath today. Pt endorses feeling sweaty and warm over the past 10 days, but denies chills. Pt denies headache, dizziness, lightheadedness, weakness, chest pain, palpitations, abdominal pain, n/v/d. Pt returned from the [facility] 3 weeks ago. Plate Finisher: Lucio Cardiothoracic surgeon: Dr. 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, denies smoking history Review of Systems - Review of Systems All systems: reviewed and no additional remarkable complaints except (as per HPI ) Past Patient History - Past Medical History & Family History Past Medical History?: Yes - Past Social History Smoking Status: Never Smoked - CARDIAC Hx Hypertension: Yes - HEENT Hx Blind: Yes - MUSCULOSKELETAL/RHEUMATOLOGICAL Hx Arthritis: Yes - PSYCHIATRIC Hx Substance Use: No - SURGICAL HISTORY Hx Cataract Extraction: Yes - ANESTHESIA Hx Anesthesia: Yes Hx Anesthesia Reactions: No Meds Allergies/Adverse Reactions: Allergies Allergy/AdvReac Type Severity Reaction Status Date / Time SEASONAL Allergy Uncoded 04/11/18 16:37 - Medications Medications: Current Medications Acetaminophen (Tylenol 325mg Tab) 650 mg PO Q6 PRN PRN Reason: Fever >100.4 F Acetaminophen (Tylenol 325mg Tab) 650 mg PO Q6 PRN PRN Reason: Pain, moderate (4-7) Albuterol/Ipratropium (Duoneb 3 Mg/0.5 Mg (3 Ml) Ud) 3 ml INH RQ4 [facility] Aspirin (Aspirin Chewable) 81 mg PO DAILY [facility] Last Admin: 04/15/18 09:54 Dose: 81 mg Famotidine (Pepcid) 20 mg PO BID [facility] Last Admin: 04/15/18 09:54 Dose: 20 mg Furosemide (Lasix) 40 mg IVP DAILY [facility] Last Admin: 04/15/18 13:16 Dose: 40 mg Guaifenesin (Robitussin) 100 mg PO Q4H PRN PRN Reason: Cough Last Admin: 04/15/18 06:19 Dose: 100 mg Azithromycin 500 mg/ Sodium (Chloride) 250 mls @ 250 mls/hr IVPB STAT STA PRN Reason: Protocol Stop: 04/15/18 14:49 Azithromycin 500 mg/ Sodium (Chloride) 250 mls @ 250 mls/hr IVPB DAILY [facility] PRN Reason: Protocol Piperacillin Sod/Tazobactam (Sod 3.375 gm/ Sodium Chloride) 100 mls @ 200 mls/ hr IVPB Q8H [facility] PRN Reason: Protocol Vancomycin HCl 1 gm/ Sodium (Chloride) 250 mls @ 166.7 mls/hr IVPB ONCE ONE PRN Reason: Protocol Stop: 04/15/18 17:29 Vancomycin HCl 1 gm/ Sodium (Chloride) 250 mls @ 166.7 mls/hr IVPB Q24H [facility] PRN Reason: Protocol Methylprednisolone (Solu-Medrol) 60 mg IVP Q8 [facility] Last Admin: 04/15/18 13:36 Dose: 60 mg Nystatin (Nystatin Oral Susp) 5 ml PO QID [facility] Last Admin: 04/15/18 09:54 Dose: 5 ml Potassium Chloride (K-Dur 20 Meq Er Tab) 40 meq PO DAILY [facility] Last Admin: 04/15/18 09:54 Dose: 40 meq Saccharomyces Boulardii (Florastor) 250 mg PO Q12 [facility] Physical Exam - Eye Exam Eye Exam: EOMI Pupil Exam: PERRL - ENT Exam ENT Exam: Mucous Membranes Moist - Neck Exam Neck exam: Positive for: Normal Inspection - Respiratory Exam Respiratory Exam: Accessory Muscle Use (use of abdominal muscles to breathe), Wheezes (diffuse). absent: NORMAL BREATHING PATTERN (tachypnea) - Cardiovascular Exam Cardiovascular Exam: REGULAR RHYTHM, +S1, +S2 - GI/Abdominal Exam GI & Abdominal Exam: Normal Bowel Sounds, Soft. absent: Tenderness - Extremities Exam Extremities exam: Positive for: pedal pulses present (1+ bilateral DP). Negative for: calf tenderness, normal inspection ((+) venous stasis changes bilateral lower extremities), pedal edema Additional comments: 3+ bilateral radial pulse - Neurological Exam Neurological exam: Alert, Oriented x3 - Psychiatric Exam Psychiatric exam: Normal Affect, Normal Mood - Skin Skin Exam: Warm Additional comments: (+) moist and clammy skin Results - Vital Signs Recent Vital Signs: Last Vital Signs Temp 98.5 F 04/15/18 12:30 Pulse 70 04/15/18 12:30 Resp 21 04/15/18 12:30 BP 170/86 H 04/15/18 13:16 Pulse Ox 97 04/15/18 12:30 - Labs Result Diagrams: 04/15/18 13:01 04/15/18 13:01 Labs: Laboratory Results - last 24 hr 04/15/18 04/15/18 04/15/18 12:45 13:01 13:01 WBC 15.4 H RBC 4.35 L Hgb 13.0 Hct 37.5 MCV 86.3 MCH 29.9 MCHC 34.7 RDW 13.6 Plt Count 188 MPV 9.6 Neut % (Auto) 80.5 H Lymph % (Auto) 7.6 L Frio % (Auto) 8.9 Eos % (Auto) 2.6 Baso % (Auto) 0.4 Neut # (Auto) 12.4 H Lymph # (Auto) 1.2 Frio # (Auto) 1.4 H Eos # (Auto) 0.4 Baso # (Auto) 0.1 Neutrophils % (Manual) 79 H Lymphocytes % (Manual) 9 L Monocytes % (Manual) 8 Eosinophils % (Manual) 4 Platelet Estimate Normal RBC Morphology Normal Puncture Site Lb pCO2 31 L pO2 75 L HCO3 25.6 ABG pH 7.49 H ABG Total CO2 24.6 ABG O2 Saturation 96.7 ABG Base Excess 1.0 ABG Hemoglobin 13.9 ABG Carboxyhemoglobin 1.6 H POC ABG HHb (Measured) 3.2 ABG Methemoglobin 0.9 Prakash Test Na Hgb O2 Saturation 94.4 L Liter Flow 3.0 Sodium 141 Potassium 4.0 Chloride 103 Carbon Dioxide 26 Anion Gap 16 BUN 14 Creatinine 0.9 Est GFR ( Amer) > 60 Est GFR (Non-Af Amer) > 60 Random Glucose 154 H Calcium 8.6 Total Bilirubin 0.9 AST 37 ALT 79 H D Alkaline Phosphatase 109 NT-Pro-B Natriuret Pep 6370 H Total Protein 7.1 Albumin 3.5 Globulin 3.5 Albumin/Globulin Ratio 1.0 Assessment & Plan - Assessment and Plan (Free Text) Assessment: This is a 78 year old male with PMHx of CAD s/p CABG, pacemaker, recently diagnosed Emphysema, HTN who was BIBA on 04/11/18 due to a 10 day history of worsening sob with cough productive of green sputum. In the ED, pt noted to have leukocytosis with 25 bands, BNP 5550, lactate 2.2, flu positive. Code sepsis was called. Pt received 80 mg of lasix IVP in the ED, as well as IVF. Admitted for sepsis secondary to pneumonia. ICU was consulted due to SOB and increased work of breathing. Pt will be managed in the ICU for hypoxic respiratory failure secondary to pneumonia, as well as CHF exacerbation. Plan: Neuro: - monitor for mental status changes - pt is aaox3 at baseline Cardio: - maintain MAP>65 mmHg - echocardiogram (04/12) shows LVEF 46.2%, Moderate dilation of left atrium, mild to moderate mitral regurgitation. - BNP 6370 - lasix 40 ivp qd Pulm: - cxr (04/15) shows marked interval worsening of right-sided infiltrate which is now diffuse with prominent left mid lung zone pneumonia. - maintain spo2>90% - continue antibiotics for suspected hcap - solumedrol 60 mg ivp q8 - positive for influenza a; continue tamiflu - droplet precautions - duonebs - trial of bpap (8i/4e 40%); low threshold to intubate if no response or worsening of respiratory status - ABG shows mild alkalosis - urine legionella antigen negative - f/u m. pneumoniae, strep pneumoniae, mycoplasma Igg - f/u GI: - continue HHD - AST/ALT/ALP is downtrending (37/79/109); possibly due to zosyn - f/u hep panel - pepcid for pud ppx Renal: - BUN/Cr continues to be wnl - replete electrolytes as needed - continue strict I's and O's while being diuresed ID: - uptrending leukocytosis (15.4) w/o bandemia - worsening right sided pneumonia on cxr; likely hcap - azithromycin, zosyn, vanco - BC x 2 prelim shows no growth x 3 days - sputum afb culture shows no growth x2 - sputum culture is positive for yeas species - f/u procal - f/u ID recs Heme: - H/h stable - heparin and scd for vte ppx Endo: - maintain euglycemia - accucheck achs PPX: pecpid for pud; heparin and SCDs for vte Dispo: ICU care for hypoxic respiratory failure secondary to sepsis caused by pneumonia, chf exacerbation Case reviewed and discussed with attending physician, Dr. Sutherland <Guilherme Sutherland - Last Filed: 04/15/18 18:37> Meds - Medications Medications: Current Medications Acetaminophen (Tylenol 325mg Tab) 650 mg PO Q6 PRN PRN Reason: Fever >100.4 F Acetaminophen (Tylenol 325mg Tab) 650 mg PO Q6 PRN PRN Reason: Pain, moderate (4-7) Albuterol/Ipratropium (Duoneb 3 Mg/0.5 Mg (3 Ml) Ud) 3 ml INH RQ4 [facility] Last Admin: 04/15/18 16:06 Dose: 3 ml Aspirin (Aspirin Chewable) 81 mg PO DAILY [facility] Last Admin: 04/15/18 09:54 Dose: 81 mg Famotidine (Pepcid) 20 mg PO BID [facility] Last Admin: 04/15/18 17:24 Dose: 20 mg Furosemide (Lasix) 40 mg IVP DAILY [facility] Last Admin: 04/15/18 13:16 Dose: 40 mg Guaifenesin (Robitussin) 100 mg PO Q4H PRN PRN Reason: Cough Last Admin: 04/15/18 06:19 Dose: 100 mg Heparin Sodium (Porcine) (Heparin) 5,000 units SC Q8 [facility] Azithromycin 500 mg/ Sodium (Chloride) 250 mls @ 166.667 mls/hr IVPB Q24H [facility] PRN Reason: Protocol Piperacillin Sod/Tazobactam (Sod 3.375 gm/ Sodium Chloride) 100 mls @ 200 mls/ hr IVPB Q8H [facility] PRN Reason: Protocol Last Admin: 04/15/18 15:42 Dose: 200 mls/hr Vancomycin/Sodium Chloride (Vancomycin 1 Gm/Ns 200 Ml) 1 gm in 200 mls @ 133.333 mls/hr IVPB Q24H [facility] PRN Reason: Protocol Methylprednisolone (Solu-Medrol) 60 mg IVP Q8 [facility] Last Admin: 04/15/18 13:36 Dose: 60 mg Nystatin (Nystatin Oral Susp) 5 ml PO QID [facility] Last Admin: 04/15/18 15:28 Dose: Not Given Oseltamivir Phosphate (Tamiflu Cap) 75 mg PO BID [facility] PRN Reason: Protocol Stop: 04/16/18 18:01 Last Admin: 04/15/18 17:24 Dose: 75 mg Potassium Chloride (K-Dur 20 Meq Er Tab) 40 meq PO DAILY [facility] Last Admin: 04/15/18 09:54 Dose: 40 meq Saccharomyces Boulardii (Florastor) 250 mg PO Q12 [facility] Results - Vital Signs Recent Vital Signs: Last Vital Signs Temp 98.6 F 04/15/18 14:00 Pulse 70 04/15/18 17:20 Resp 27 H 04/15/18 17:20 BP 150/83 04/15/18 17:09 Pulse Ox 100 04/15/18 17:20 - Labs Result Diagrams: 04/15/18 13:01 04/15/18 13:01 Labs: Laboratory Results - last 24 hr 04/15/18 04/15/18 04/15/18 12:45 13:01 13:01 WBC 15.4 H RBC 4.35 L Hgb 13.0 Hct 37.5 MCV 86.3 MCH 29.9 MCHC 34.7 RDW 13.6 Plt Count 188 MPV 9.6 Neut % (Auto) 80.5 H Lymph % (Auto) 7.6 L Frio % (Auto) 8.9 Eos % (Auto) 2.6 Baso % (Auto) 0.4 Neut # (Auto) 12.4 H Lymph # (Auto) 1.2 Frio # (Auto) 1.4 H Eos # (Auto) 0.4 Baso # (Auto) 0.1 Neutrophils % (Manual) 79 H Lymphocytes % (Manual) 9 L Monocytes % (Manual) 8 Eosinophils % (Manual) 4 Platelet Estimate Normal RBC Morphology Normal Puncture Site Lb pCO2 31 L pO2 75 L HCO3 25.6 ABG pH 7.49 H ABG Total CO2 24.6 ABG O2 Saturation 96.7 ABG Base Excess 1.0 ABG Hemoglobin 13.9 ABG Carboxyhemoglobin 1.6 H POC ABG HHb (Measured) 3.2 ABG Methemoglobin 0.9 Prakash Test Na Hgb O2 Saturation 94.4 L Liter Flow 3.0 Sodium 141 Potassium 4.0 Chloride 103 Carbon Dioxide 26 Anion Gap 16 BUN 14 Creatinine 0.9 Est GFR ( Amer) > 60 Est GFR (Non-Af Amer) > 60 Random Glucose 154 H Calcium 8.6 Total Bilirubin 0.9 AST 37 ALT 79 H D Alkaline Phosphatase 109 NT-Pro-B Natriuret Pep 6370 H Total Protein 7.1 Albumin 3.5 Globulin 3.5 Albumin/Globulin Ratio 1.0 Ur L.pneumophila Ag 04/15/18 14:34 WBC RBC Hgb Hct MCV MCH MCHC RDW Plt Count MPV Neut % (Auto) Lymph % (Auto) Frio % (Auto) Eos % (Auto) Baso % (Auto) Neut # (Auto) Lymph # (Auto) Frio # (Auto) Eos # (Auto) Baso # (Auto) Neutrophils % (Manual) Lymphocytes % (Manual) Monocytes % (Manual) Eosinophils % (Manual) Platelet Estimate RBC Morphology Puncture Site pCO2 pO2 HCO3 ABG pH ABG Total CO2 ABG O2 Saturation ABG Base Excess ABG Hemoglobin ABG Carboxyhemoglobin POC ABG HHb (Measured) ABG Methemoglobin Prakash Test Hgb O2 Saturation Liter Flow Sodium Potassium Chloride Carbon Dioxide Anion Gap BUN Creatinine Est GFR ( Amer) Est GFR (Non-Af Amer) Random Glucose Calcium Total Bilirubin AST ALT Alkaline Phosphatase NT-Pro-B Natriuret Pep Total Protein Albumin Globulin Albumin/Globulin Ratio Ur L.pneumophila Ag Negative Attending/Attestation - Attestation I have personally seen and examined this patient.: Yes I have fully participated in the care of the patient.: Yes I have reviewed all pertinent clinical information: Yes Notes (Text): 04/15/18 18:36 PATIENT SEEN AND EXAMINED 78-year-old maletransferred to intensive care unit for worsening shortness of breathrespiratory failure Chest x-ray consistent with worsening pneumonia Patient with diffuse wheezing and rhonchi Placed on BiPAP IV steroids and nebulizer treatment IV antibiotics Diuretics Intubation if condition worsens
[2018-04-15] MEDS ORDERED: Azithromycin 500 MG in Sodium Chloride 0.9% 250 ML IVPB STA (13:55)
[2018-04-15] MEDS: Piperacillin/Tazobact 3.375 GM in Sodium Chloride 100 ML IVPB SCH ×2 (15:42→22:00)
[2018-04-15] MEDS ORDERED: Vancomycin 1 gm/NS 200 ml 1 GM/200 ML BAG IVPB ONE (16:00)
[2018-04-15] MEDS: Albuterol-Ipratrop 3 mg / 0.5 (3 ml) UD INH SCH ×2 (16:06→19:18)
[2018-04-15] MEDS: Saccharomyces Boulardi 250 mg Cap PO SCH (22:05)
[2018-04-16] MEDS: Albuterol-Ipratrop 3 mg / 0.5 (3 ml) UD INH SCH ×5 (00:52→16:42)
[2018-04-16] MEDS: Piperacillin/Tazobact 3.375 GM in Sodium Chloride 100 ML IVPB SCH ×3 (06:30→22:02)
[2018-04-16 06:43] LABS: BASO % 0.3 % (0.0-2.0); HEMOGLOBIN 12.4 g/dL (12.0-18.0); LYMPH # 0.5 K/uL (1.0-4.3); LYMPH % 5.2 % (20.0-40.0); MEAN CELL VOLUME 86.8 fL (80.0-94.0); MEAN CORPUSCULAR HEMOGLOBIN 30.2 pg (27.0-31.0); MEAN CORPUSCULAR HGB CONC 34.8 g/dL (33.0-37.0); MEAN PLATELET VOLUME 9.8 fL (7.2-11.7); MONO # 0.3 K/uL (0.0-0.8); MONO % 3.3 % (0.0-10.0); NEUT # 8.9 K/uL (1.8-7.0); NEUT % 91.2 % (50.0-75.0); PLATELET COUNT 179 K/uL (130-400); RED CELL DISTRIBUTION WIDTH 13.6 % (11.5-14.5); WHITE BLOOD COUNT 9.8 K/uL (4.8-10.8)
[2018-04-16 07:12] LABS: ALBUMIN 3.3 g/dL (3.5-5.0); ALT/SGPT 77 U/L (21-72); AST/SGOT 28 U/L (17-59); BLOOD UREA NITROGEN 21 mg/dL (9-20); CALCIUM 8.7 mg/dl (8.6-10.4); GFR NON-AFRICAN AMERICAN > 60
[2018-04-16 07:34] LABS: HEPATITIS B SURFACE AG Negative (NEGATIVE)
[2018-04-16 07:40] LABS: HEPATITIS A IGM NEGATIVE (NEGATIVE); HEPATITIS B CORE AB NEGATIVE (NEGATIVE)
[2018-04-16 07:51] LABS: HEPATITIS C ANTIBODY NEGATIVE (NEGATIVE)
[2018-04-16 08:30] LABS: LYMPHOCYTE 11 % (20-40); MONOCYTE 1 % (0-10); NEUTROPHIL 88 % (50-75); PLATELET ESTIMATE NORMAL (NORMAL); TOTAL CELLS COUNTED 100
[2018-04-16] MEDS: Potassium Chloride 20 mEq ER Tab PO SCH (09:34)
[2018-04-16] MEDS: Saccharomyces Boulardi 250 mg Cap PO SCH ×2 (09:34→21:59)
[2018-04-16] MEDS: Nystatin 100,000 Units/ml Oral Susp 5 ml UD PO SCH ×4 (09:35→22:00)
[2018-04-16] MEDS: guaiFENesin 100 mg/5 ml Syrup UD PO PRN ×2 (09:44→14:34)
--- NOTE | 2018-04-16 10:03 | RAD ---
Date of service: 04/16/2018 HISTORY: f/u pnuemonia COMPARISON: Portable chest 04/15/2018. FINDINGS: LUNGS: There is bronchial improvement in density of bilateral pulmonary infiltrates remaining greater the right than left sides with distribution unchanged. PLEURA: No significant pleural effusion identified, no pneumothorax apparent. CARDIOVASCULAR: Cardiomegaly reiterated. Cardiomediastinal silhouette appears stable including sternotomy wires, post CABG changes and unipolar permanent cardiac pacemaker. OSSEOUS STRUCTURES: No significant abnormalities. VISUALIZED UPPER ABDOMEN: Normal. OTHER FINDINGS: None. IMPRESSION: Limited improvement in bilateral pulmonary infiltrates greater the right than left chest. Remainder the examination appears stable interval including cardiomegaly. No pulmonary vascular congestion.
[2018-04-16] MEDS: Vancomycin 1 gm/NS 200 ml 1 GM/200 ML BAG IVPB SCH (11:16)
--- NOTE | 2018-04-16 11:49 | CP.PCM.PN ---
Subjective - Date & Time of Evaluation Date of Evaluation: 04/16/18 Time of Evaluation: 11:47 - Subjective Subjective: pt seen in icu got worse last night mor sob more cough and condested given treatment in icu no distress now but tired still coughing less sob Objective - Vital Signs/Intake and Output Vital Signs (last 24 hours): Temp Pulse Resp BP Pulse Ox 97.4 F L 70 28 H 122/72 96 04/16/18 08:00 04/16/18 11:09 04/16/18 11:09 04/16/18 11:09 04/16/18 11:09 Intake and Output: 04/16/18 04/16/18 06:59 18:59 Intake Total 670 420 Output Total 650 Balance 20 420 - Medications Medications: Current Medications Acetaminophen (Tylenol 325mg Tab) 650 mg PO Q6 PRN PRN Reason: Fever >100.4 F Acetaminophen (Tylenol 325mg Tab) 650 mg PO Q6 PRN PRN Reason: Pain, moderate (4-7) Albuterol/Ipratropium (Duoneb 3 Mg/0.5 Mg (3 Ml) Ud) 3 ml INH RQ4 [facility] Last Admin: 04/16/18 11:27 Dose: 3 ml Aspirin (Aspirin Chewable) 81 mg PO DAILY [facility] Last Admin: 04/16/18 09:34 Dose: 81 mg Famotidine (Pepcid) 20 mg PO BID [facility] Last Admin: 04/16/18 09:35 Dose: 20 mg Furosemide (Lasix) 40 mg IVP DAILY [facility] Last Admin: 04/16/18 09:34 Dose: 40 mg Guaifenesin (Robitussin) 100 mg PO Q4H PRN PRN Reason: Cough Last Admin: 04/16/18 09:44 Dose: 100 mg Heparin Sodium (Porcine) (Heparin) 5,000 units SC Q8 [facility] Last Admin: 04/16/18 06:28 Dose: 5,000 units Azithromycin 500 mg/ Sodium (Chloride) 250 mls @ 166.667 mls/hr IVPB Q24H [facility] PRN Reason: Protocol Piperacillin Sod/Tazobactam (Sod 3.375 gm/ Sodium Chloride) 100 mls @ 200 mls/ hr IVPB Q8H [facility] PRN Reason: Protocol Last Admin: 04/16/18 06:30 Dose: 200 mls/hr Vancomycin/Sodium Chloride (Vancomycin 1 Gm/Ns 200 Ml) 1 gm in 200 mls @ 133.333 mls/hr IVPB Q24H [facility] PRN Reason: Protocol Last Admin: 04/16/18 11:16 Dose: 133.333 mls/hr Methylprednisolone (Solu-Medrol) 60 mg IVP Q8 [facility] Last Admin: 04/16/18 06:28 Dose: 60 mg Nystatin (Nystatin Oral Susp) 5 ml PO QID [facility] Last Admin: 04/16/18 09:35 Dose: 5 ml Oseltamivir Phosphate (Tamiflu Cap) 75 mg PO BID [facility] PRN Reason: Protocol Stop: 04/16/18 18:01 Last Admin: 04/16/18 09:35 Dose: 75 mg Potassium Chloride (K-Dur 20 Meq Er Tab) 40 meq PO DAILY [facility] Last Admin: 04/16/18 09:34 Dose: 40 meq Saccharomyces Boulardii (Florastor) 250 mg PO Q12 [facility] Last Admin: 04/16/18 09:34 Dose: 250 mg - Labs Labs: 04/16/18 06:40 04/16/18 06:40 PT 13.4 SECONDS (9.7-12.2) H 04/11/18 17:04 INR 1.2 04/11/18 17:04 APTT 31 SECONDS (21-34) 04/11/18 17:04 - Constitutional Appears: In Acute Distress - Head Exam Head Exam: NORMOCEPHALIC - Eye Exam Eye Exam: Normal appearance Pupil Exam: NORMAL ACCOMODATION - ENT Exam ENT Exam: Mucous Membranes Moist - Neck Exam Neck Exam: Normal Inspection - Respiratory Exam Respiratory Exam: Decreased Breath Sounds, Rales - Cardiovascular Exam Cardiovascular Exam: REGULAR RHYTHM - Extremities Exam Extremities Exam: Normal Inspection - Back Exam Back Exam: NORMAL INSPECTION - Neurological Exam Neurological Exam: Oriented x3 - Psychiatric Exam Psychiatric exam: Normal Mood - Skin Skin Exam: Normal Color Assessment and Plan - Assessment and Plan (Free Text) Assessment: acute resp distress copd chf pnumonia Plan: cont as per icu
--- NOTE | 2018-04-16 12:06 | CARD ---
APPROVED REPORT Date of service: 04/11/2018 EKG Measurement Heart [id number] [id number] [id number] <Conclusion> Ventricular-paced rhythm Abnormal ECG
[2018-04-16] MEDS: Azithromycin 500 MG in Sodium Chloride 0.9% 250 ML IVPB SCH (14:31)
--- NOTE | 2018-04-16 14:44 | CP.PCM.PN ---
Subjective - Date & Time of Evaluation Date of Evaluation: 04/16/18 Time of Evaluation: 09:00 - Subjective Subjective: events noted no new positive cultures appears less sob afeb denies chest pain Objective - Vital Signs/Intake and Output Vital Signs (last 24 hours): Temp Pulse Resp BP Pulse Ox 97.4 F L 76 38 H 138/95 H 95 04/16/18 08:00 04/16/18 13:09 04/16/18 13:09 04/16/18 13:09 04/16/18 13:09 Intake and Output: 04/16/18 04/16/18 06:59 18:59 Intake Total 670 420 Output Total 650 Balance 20 420 - Medications Medications: Current Medications Acetaminophen (Tylenol 325mg Tab) 650 mg PO Q6 PRN PRN Reason: Fever >100.4 F Acetaminophen (Tylenol 325mg Tab) 650 mg PO Q6 PRN PRN Reason: Pain, moderate (4-7) Albuterol/Ipratropium (Duoneb 3 Mg/0.5 Mg (3 Ml) Ud) 3 ml INH RQ4 [facility] Last Admin: 04/16/18 11:27 Dose: 3 ml Aspirin (Aspirin Chewable) 81 mg PO DAILY [facility] Last Admin: 04/16/18 09:34 Dose: 81 mg Famotidine (Pepcid) 20 mg PO BID [facility] Last Admin: 04/16/18 09:35 Dose: 20 mg Furosemide (Lasix) 40 mg IVP DAILY [facility] Last Admin: 04/16/18 09:34 Dose: 40 mg Guaifenesin (Robitussin) 100 mg PO Q4H PRN PRN Reason: Cough Last Admin: 04/16/18 14:34 Dose: 100 mg Heparin Sodium (Porcine) (Heparin) 5,000 units SC Q8 [facility] Last Admin: 04/16/18 14:31 Dose: 5,000 units Azithromycin 500 mg/ Sodium (Chloride) 250 mls @ 166.667 mls/hr IVPB Q24H [facility] PRN Reason: Protocol Last Admin: 04/16/18 14:31 Dose: 166.667 mls/hr Piperacillin Sod/Tazobactam (Sod 3.375 gm/ Sodium Chloride) 100 mls @ 200 mls/ hr IVPB Q8H [facility] PRN Reason: Protocol Last Admin: 04/16/18 06:30 Dose: 200 mls/hr Vancomycin/Sodium Chloride (Vancomycin 1 Gm/Ns 200 Ml) 1 gm in 200 mls @ 133.333 mls/hr IVPB Q24H [facility] PRN Reason: Protocol Last Admin: 04/16/18 11:16 Dose: 133.333 mls/hr Methylprednisolone (Solu-Medrol) 60 mg IVP Q8 [facility] Last Admin: 04/16/18 14:31 Dose: 60 mg Nystatin (Nystatin Oral Susp) 5 ml PO QID [facility] Last Admin: 04/16/18 14:31 Dose: 5 ml Oseltamivir Phosphate (Tamiflu Cap) 75 mg PO BID [facility] PRN Reason: Protocol Stop: 04/16/18 18:01 Last Admin: 04/16/18 09:35 Dose: 75 mg Potassium Chloride (K-Dur 20 Meq Er Tab) 40 meq PO DAILY [facility] Last Admin: 04/16/18 09:34 Dose: 40 meq Saccharomyces Boulardii (Florastor) 250 mg PO Q12 [facility] Last Admin: 04/16/18 09:34 Dose: 250 mg - Labs Labs: 04/16/18 06:40 04/16/18 06:40 PT 13.4 SECONDS (9.7-12.2) H 04/11/18 17:04 INR 1.2 04/11/18 17:04 APTT 31 SECONDS (21-34) 04/11/18 17:04 - Constitutional Appears: Non-toxic, Chronically Ill - Head Exam Head Exam: NORMOCEPHALIC - Eye Exam Eye Exam: PERRL - ENT Exam ENT Exam: Mucous Membranes Dry - Neck Exam Neck Exam: absent: Lymphadenopathy - Respiratory Exam Respiratory Exam: Decreased Breath Sounds, Rhonchi - Cardiovascular Exam Cardiovascular Exam: REGULAR RHYTHM - GI/Abdominal Exam GI & Abdominal Exam: Distended - Rectal Exam Rectal Exam: Deferred - Exam Exam: NORMAL INSPECTION - Extremities Exam Extremities Exam: absent: Pedal Edema - Back Exam Back Exam: absent: CVA tenderness (L), CVA tenderness (R) - Neurological Exam Neurological Exam: Alert, Awake, Oriented x3 - Psychiatric Exam Psychiatric exam: Normal Mood - Skin Skin Exam: Dry Assessment and Plan (1) Influenza Status: Acute (2) Pneumonia Status: Acute (3) Sepsis Status: Acute (4) Bradycardia Status: Acute - Assessment and Plan (Free Text) Assessment: cont iv antibiotics/ ICU monitoring await cultures
--- NOTE | 2018-04-16 15:57 | CP.PCM.PN ---
Subjective - Date & Time of Evaluation Date of Evaluation: 04/16/18 Time of Evaluation: 09:00 - Subjective Subjective: Patient seen and examined Breathing much improved refusing BiPAP Afebrile patient is awake and responsive Resolving infiltrate Objective - Vital Signs/Intake and Output Vital Signs (last 24 hours): Temp Pulse Resp BP Pulse Ox 97.4 F L 70 8 L 127/89 99 04/16/18 14:00 04/16/18 15:00 04/16/18 15:00 04/16/18 15:09 04/16/18 15:00 Intake and Output: 04/16/18 04/16/18 06:59 18:59 Intake Total 670 420 Output Total 650 Balance 20 420 - Medications Medications: Current Medications Acetaminophen (Tylenol 325mg Tab) 650 mg PO Q6 PRN PRN Reason: Fever >100.4 F Acetaminophen (Tylenol 325mg Tab) 650 mg PO Q6 PRN PRN Reason: Pain, moderate (4-7) Albuterol/Ipratropium (Duoneb 3 Mg/0.5 Mg (3 Ml) Ud) 3 ml INH RQ4 [facility] Last Admin: 04/16/18 11:27 Dose: 3 ml Aspirin (Aspirin Chewable) 81 mg PO DAILY [facility] Last Admin: 04/16/18 09:34 Dose: 81 mg Famotidine (Pepcid) 20 mg PO BID [facility] Last Admin: 04/16/18 09:35 Dose: 20 mg Furosemide (Lasix) 40 mg IVP DAILY [facility] Last Admin: 04/16/18 09:34 Dose: 40 mg Guaifenesin (Robitussin) 100 mg PO Q4H PRN PRN Reason: Cough Last Admin: 04/16/18 14:34 Dose: 100 mg Heparin Sodium (Porcine) (Heparin) 5,000 units SC Q8 [facility] Last Admin: 04/16/18 14:31 Dose: 5,000 units Azithromycin 500 mg/ Sodium (Chloride) 250 mls @ 166.667 mls/hr IVPB Q24H [facility] PRN Reason: Protocol Last Admin: 04/16/18 14:31 Dose: 166.667 mls/hr Piperacillin Sod/Tazobactam (Sod 3.375 gm/ Sodium Chloride) 100 mls @ 200 mls/ hr IVPB Q8H [facility] PRN Reason: Protocol Last Admin: 04/16/18 14:36 Dose: 200 mls/hr Vancomycin/Sodium Chloride (Vancomycin 1 Gm/Ns 200 Ml) 1 gm in 200 mls @ 133.333 mls/hr IVPB Q24H [facility] PRN Reason: Protocol Last Admin: 04/16/18 11:16 Dose: 133.333 mls/hr Methylprednisolone (Solu-Medrol) 60 mg IVP Q8 [facility] Last Admin: 04/16/18 14:31 Dose: 60 mg Nystatin (Nystatin Oral Susp) 5 ml PO QID [facility] Last Admin: 04/16/18 14:31 Dose: 5 ml Oseltamivir Phosphate (Tamiflu Cap) 75 mg PO BID [facility] PRN Reason: Protocol Stop: 04/16/18 18:01 Last Admin: 04/16/18 09:35 Dose: 75 mg Potassium Chloride (K-Dur 20 Meq Er Tab) 40 meq PO DAILY [facility] Last Admin: 04/16/18 09:34 Dose: 40 meq Saccharomyces Boulardii (Florastor) 250 mg PO Q12 [facility] Last Admin: 04/16/18 09:34 Dose: 250 mg - Labs Labs: 04/16/18 06:40 04/16/18 06:40 PT 13.4 SECONDS (9.7-12.2) H 04/11/18 17:04 INR 1.2 04/11/18 17:04 APTT 31 SECONDS (21-34) 04/11/18 17:04 - Head Exam Head Exam: ATRAUMATIC, NORMOCEPHALIC - Eye Exam Eye Exam: Normal appearance - ENT Exam ENT Exam: Mucous Membranes Moist - Neck Exam Neck Exam: Normal Inspection - Respiratory Exam Respiratory Exam: Rales - Cardiovascular Exam Cardiovascular Exam: REGULAR RHYTHM Assessment and Plan (1) Pneumonia Assessment & Plan: Resolving infiltrate Continue nebulizer treatment Continue IV steroids Antibiotics Diuretics Transfer to floor BiPAP as needed Status: Acute (2) CHF (congestive heart failure) Status: Acute (3) Asthma Status: Acute
[2018-04-17] MEDS: Albuterol-Ipratrop 3 mg / 0.5 (3 ml) UD INH SCH ×7 (00:19→20:14)
[2018-04-17] MEDS: Piperacillin/Tazobact 3.375 GM in Sodium Chloride 100 ML IVPB SCH ×3 (06:22→21:56)
[2018-04-17 06:31] LABS: BASO % 0.1 % (0.0-2.0); HEMOGLOBIN 12.2 g/dL (12.0-18.0); LYMPH # 0.5 K/uL (1.0-4.3); MEAN CELL VOLUME 87.8 fL (80.0-94.0); MEAN CORPUSCULAR HEMOGLOBIN 29.4 pg (27.0-31.0); MEAN CORPUSCULAR HGB CONC 33.5 g/dL (33.0-37.0); MEAN PLATELET VOLUME 9.5 fL (7.2-11.7); MONO # 0.6 K/uL (0.0-0.8); MONO % 3.8 % (0.0-10.0); NEUT # 14.1 K/uL (1.8-7.0); NEUT % 93.1 % (50.0-75.0); PLATELET COUNT 207 K/uL (130-400); RBC 4.16 Mil/uL (4.40-5.90); RED CELL DISTRIBUTION WIDTH 14.1 % (11.5-14.5); WHITE BLOOD COUNT 15.1 K/uL (4.8-10.8)
[2018-04-17 06:49] LABS: ALBUMIN 3.6 g/dL (3.5-5.0); ALT/SGPT 94 U/L (21-72); AST/SGOT 51 U/L (17-59); BLOOD UREA NITROGEN 28 mg/dL (9-20); CALCIUM 8.9 mg/dl (8.6-10.4); GFR NON-AFRICAN AMERICAN > 60
[2018-04-17 08:23] LABS: BANDS 3 % (0-2); LYMPHOCYTE 4 % (20-40); MONOCYTE 2 % (0-10); NEUTROPHIL 91 % (50-75); PLATELET ESTIMATE NORMAL (NORMAL); TOTAL CELLS COUNTED 100
--- NOTE | 2018-04-17 08:43 | RAD ---
Date of service: 04/17/2018 HISTORY: f/u pneumonia COMPARISON: 04/16/2018 at 0704 hours. FINDINGS: LUNGS: Bilateral patchy interstitial coalescing patchy airspace opacities compatible with bilateral patchy infiltrates probable superimposed mild interstitial edema compatible with this. Overall appearance is similar PLEURA: No significant pleural effusion identified, no pneumothorax apparent. Biapical pleural thickening -similar CARDIOVASCULAR: Cardiomegaly -unfolded tortuous prominent thoracic aorta -similar. Sternal wires CABG surgical changes and unipolar pacemaker (satisfactory) all stable appearing OSSEOUS STRUCTURES: Sternotomy. Thoracic spondylosis. VISUALIZED UPPER ABDOMEN: Normal. OTHER FINDINGS: None. IMPRESSION: No significant interval change in the extensive mixed pathologies compatible with bilateral patchy infiltrates (interstitial and airspace) since 04/16/2018. . Other findings as above.
[2018-04-17] MEDS: POLYETHYLENE GLYCOL 3350 17 GM/Dose PACKET PO SCH (10:28)
[2018-04-17] MEDS: Potassium Chloride 20 mEq ER Tab PO SCH (10:29)
[2018-04-17] MEDS: Saccharomyces Boulardi 250 mg Cap PO SCH ×2 (10:29→21:56)
[2018-04-17] MEDS: Nystatin 100,000 Units/ml Oral Susp 5 ml UD PO SCH ×4 (10:38→21:56)
[2018-04-17] MEDS: Vancomycin 1 gm/NS 200 ml 1 GM/200 ML BAG IVPB SCH (11:59)
[2018-04-17] MEDS: Azithromycin 500 MG in Sodium Chloride 0.9% 250 ML IVPB SCH (14:39)
--- NOTE | 2018-04-17 17:02 | CP.PCM.PN ---
Subjective - Date & Time of Evaluation Date of Evaluation: 04/17/18 Time of Evaluation: 15:00 - Subjective Subjective: patient seen and examined Lying comfortably in no respiratory distress Afebrile Patient is off BiPAP For transfer to floor Objective - Vital Signs/Intake and Output Vital Signs (last 24 hours): Temp Pulse Resp BP Pulse Ox 97.5 F L 70 24 146/83 100 04/17/18 16:00 04/17/18 16:02 04/17/18 16:00 04/17/18 15:36 04/17/18 16:00 Intake and Output: 04/17/18 04/17/18 06:59 18:59 Intake Total 1570 Output Total 1350 Balance 220 - Medications Medications: Current Medications Acetaminophen (Tylenol 325mg Tab) 650 mg PO Q6 PRN PRN Reason: Fever >100.4 F Acetaminophen (Tylenol 325mg Tab) 650 mg PO Q6 PRN PRN Reason: Pain, moderate (4-7) Albuterol/Ipratropium (Duoneb 3 Mg/0.5 Mg (3 Ml) Ud) 3 ml INH RQ4 [facility] Last Admin: 04/17/18 15:37 Dose: 3 ml Aspirin (Aspirin Chewable) 81 mg PO DAILY [facility] Last Admin: 04/17/18 10:29 Dose: 81 mg Famotidine (Pepcid) 20 mg PO BID [facility] Last Admin: 04/17/18 10:29 Dose: 20 mg Furosemide (Lasix) 40 mg IVP DAILY [facility] Last Admin: 04/17/18 10:37 Dose: 40 mg Guaifenesin (Robitussin) 100 mg PO Q4H PRN PRN Reason: Cough Last Admin: 04/16/18 14:34 Dose: 100 mg Heparin Sodium (Porcine) (Heparin) 5,000 units SC Q8 [facility] Last Admin: 04/17/18 13:25 Dose: 5,000 units Azithromycin 500 mg/ Sodium (Chloride) 250 mls @ 166.667 mls/hr IVPB Q24H [facility] PRN Reason: Protocol Last Admin: 04/17/18 14:39 Dose: 166.667 mls/hr Piperacillin Sod/Tazobactam (Sod 3.375 gm/ Sodium Chloride) 100 mls @ 200 mls/ hr IVPB Q8H [facility] PRN Reason: Protocol Last Admin: 04/17/18 13:25 Dose: 200 mls/hr Vancomycin/Sodium Chloride (Vancomycin 1 Gm/Ns 200 Ml) 1 gm in 200 mls @ 133.333 mls/hr IVPB Q24H [facility] PRN Reason: Protocol Last Admin: 04/17/18 11:59 Dose: 133.333 mls/hr Methylprednisolone (Solu-Medrol) 60 mg IVP Q8 [facility] Last Admin: 04/17/18 13:24 Dose: 60 mg Nystatin (Nystatin Oral Susp) 5 ml PO QID [facility] Last Admin: 04/17/18 13:25 Dose: 5 ml Polyethylene Glycol (Miralax) 17 gm PO DAILY [facility] Last Admin: 04/17/18 10:28 Dose: 17 gm Potassium Chloride (K-Dur 20 Meq Er Tab) 40 meq PO DAILY [facility] Last Admin: 04/17/18 10:29 Dose: 40 meq Saccharomyces Boulardii (Florastor) 250 mg PO Q12 [facility] Last Admin: 04/17/18 10:29 Dose: 250 mg - Labs Labs: 04/17/18 06:21 04/17/18 06:21 PT 13.4 SECONDS (9.7-12.2) H 04/11/18 17:04 INR 1.2 04/11/18 17:04 APTT 29 SECONDS (21-34) 04/17/18 10:45 - Head Exam Head Exam: ATRAUMATIC, NORMOCEPHALIC - ENT Exam ENT Exam: Mucous Membranes Moist - Neck Exam Neck Exam: Normal Inspection - Respiratory Exam Respiratory Exam: Rales - Cardiovascular Exam Cardiovascular Exam: REGULAR RHYTHM - GI/Abdominal Exam GI & Abdominal Exam: Soft, Normal Bowel Sounds Assessment and Plan (1) Pneumonia Assessment & Plan: continue IV antibiotics Taper steroids Continue nebulizer treatment Lasix as needed Status: Acute (2) CHF (congestive heart failure) Status: Acute (3) Asthma Status: Acute
--- NOTE | 2018-04-17 17:38 | CP.PCM.PN ---
Subjective - Date & Time of Evaluation Date of Evaluation: 04/17/18 Time of Evaluation: 17:35 - Subjective Subjective: feels beter less cough less sob bs 400 Objective - Vital Signs/Intake and Output Vital Signs (last 24 hours): Temp Pulse Resp BP Pulse Ox 97.5 F L 70 24 146/83 100 04/17/18 16:00 04/17/18 16:02 04/17/18 16:00 04/17/18 15:36 04/17/18 16:00 Intake and Output: 04/17/18 04/17/18 06:59 18:59 Intake Total 1570 Output Total 1350 Balance 220 - Medications Medications: Current Medications Acetaminophen (Tylenol 325mg Tab) 650 mg PO Q6 PRN PRN Reason: Fever >100.4 F Acetaminophen (Tylenol 325mg Tab) 650 mg PO Q6 PRN PRN Reason: Pain, moderate (4-7) Albuterol/Ipratropium (Duoneb 3 Mg/0.5 Mg (3 Ml) Ud) 3 ml INH RQ4 [facility] Last Admin: 04/17/18 15:37 Dose: 3 ml Aspirin (Aspirin Chewable) 81 mg PO DAILY [facility] Last Admin: 04/17/18 10:29 Dose: 81 mg Famotidine (Pepcid) 20 mg PO BID [facility] Last Admin: 04/17/18 17:08 Dose: 20 mg Furosemide (Lasix) 40 mg IVP DAILY [facility] Last Admin: 04/17/18 10:37 Dose: 40 mg Guaifenesin (Robitussin) 100 mg PO Q4H PRN PRN Reason: Cough Last Admin: 04/16/18 14:34 Dose: 100 mg Heparin Sodium (Porcine) (Heparin) 5,000 units SC Q8 [facility] Last Admin: 04/17/18 13:25 Dose: 5,000 units Azithromycin 500 mg/ Sodium (Chloride) 250 mls @ 166.667 mls/hr IVPB Q24H [facility] PRN Reason: Protocol Last Admin: 04/17/18 14:39 Dose: 166.667 mls/hr Piperacillin Sod/Tazobactam (Sod 3.375 gm/ Sodium Chloride) 100 mls @ 200 mls/ hr IVPB Q8H [facility] PRN Reason: Protocol Last Admin: 04/17/18 13:25 Dose: 200 mls/hr Vancomycin/Sodium Chloride (Vancomycin 1 Gm/Ns 200 Ml) 1 gm in 200 mls @ 133.333 mls/hr IVPB Q24H [facility] PRN Reason: Protocol Last Admin: 04/17/18 11:59 Dose: 133.333 mls/hr Methylprednisolone (Solu-Medrol) 60 mg IVP Q8 [facility] Last Admin: 04/17/18 13:24 Dose: 60 mg Nystatin (Nystatin Oral Susp) 5 ml PO QID [facility] Last Admin: 04/17/18 17:08 Dose: 5 ml Polyethylene Glycol (Miralax) 17 gm PO DAILY [facility] Last Admin: 04/17/18 10:28 Dose: 17 gm Potassium Chloride (K-Dur 20 Meq Er Tab) 40 meq PO DAILY [facility] Last Admin: 04/17/18 10:29 Dose: 40 meq Saccharomyces Boulardii (Florastor) 250 mg PO Q12 [facility] Last Admin: 04/17/18 10:29 Dose: 250 mg - Labs Labs: 04/17/18 06:21 04/17/18 06:21 PT 13.4 SECONDS (9.7-12.2) H 04/11/18 17:04 INR 1.2 04/11/18 17:04 APTT 29 SECONDS (21-34) 04/17/18 10:45 - Constitutional Appears: Non-toxic - Head Exam Head Exam: NORMAL INSPECTION - Eye Exam Eye Exam: Normal appearance Pupil Exam: NORMAL ACCOMODATION - ENT Exam ENT Exam: Normal Exam - Neck Exam Neck Exam: Full ROM - Respiratory Exam Respiratory Exam: Prolonged Expiratory Phase, Rhonchi - Cardiovascular Exam Cardiovascular Exam: REGULAR RHYTHM - GI/Abdominal Exam GI & Abdominal Exam: Normal Bowel Sounds - Rectal Exam Rectal Exam: NORMAL INSPECTION - Extremities Exam Extremities Exam: Normal Inspection - Neurological Exam Neurological Exam: Alert, Normal Gait, Oriented x3 - Psychiatric Exam Psychiatric exam: Normal Affect - Skin Skin Exam: Normal Color Assessment and Plan - Assessment and Plan (Free Text) Assessment: sever copd improving dm id uncontroled Plan: incresd insulin d/c solumed start prednisn prepar fordisc soon
--- NOTE | 2018-04-17 18:10 | CP.PCM.PN ---
Subjective - Date & Time of Evaluation Date of Evaluation: 04/17/18 Time of Evaluation: 18:08 - Subjective Subjective: less sob today Objective - Vital Signs/Intake and Output Vital Signs (last 24 hours): Temp Pulse Resp BP Pulse Ox 97.5 F L 70 12 148/86 99 04/17/18 16:00 04/17/18 18:00 04/17/18 18:00 04/17/18 17:36 04/17/18 18:00 Intake and Output: 04/17/18 04/17/18 06:59 18:59 Intake Total 1570 Output Total 1350 Balance 220 - Medications Medications: Current Medications Acetaminophen (Tylenol 325mg Tab) 650 mg PO Q6 PRN PRN Reason: Fever >100.4 F Acetaminophen (Tylenol 325mg Tab) 650 mg PO Q6 PRN PRN Reason: Pain, moderate (4-7) Albuterol/Ipratropium (Duoneb 3 Mg/0.5 Mg (3 Ml) Ud) 3 ml INH RQ4 [facility] Last Admin: 04/17/18 15:37 Dose: 3 ml Aspirin (Aspirin Chewable) 81 mg PO DAILY [facility] Last Admin: 04/17/18 10:29 Dose: 81 mg Famotidine (Pepcid) 20 mg PO BID [facility] Last Admin: 04/17/18 17:08 Dose: 20 mg Furosemide (Lasix) 40 mg IVP DAILY [facility] Last Admin: 04/17/18 10:37 Dose: 40 mg Guaifenesin (Robitussin) 100 mg PO Q4H PRN PRN Reason: Cough Last Admin: 04/16/18 14:34 Dose: 100 mg Heparin Sodium (Porcine) (Heparin) 5,000 units SC Q8 [facility] Last Admin: 04/17/18 13:25 Dose: 5,000 units Azithromycin 500 mg/ Sodium (Chloride) 250 mls @ 166.667 mls/hr IVPB Q24H [facility] PRN Reason: Protocol Last Admin: 04/17/18 14:39 Dose: 166.667 mls/hr Piperacillin Sod/Tazobactam (Sod 3.375 gm/ Sodium Chloride) 100 mls @ 200 mls/ hr IVPB Q8H [facility] PRN Reason: Protocol Last Admin: 04/17/18 13:25 Dose: 200 mls/hr Vancomycin/Sodium Chloride (Vancomycin 1 Gm/Ns 200 Ml) 1 gm in 200 mls @ 133.333 mls/hr IVPB Q24H [facility] PRN Reason: Protocol Last Admin: 04/17/18 11:59 Dose: 133.333 mls/hr Methylprednisolone (Solu-Medrol) 60 mg IVP Q8 [facility] Last Admin: 04/17/18 13:24 Dose: 60 mg Nystatin (Nystatin Oral Susp) 5 ml PO QID [facility] Last Admin: 04/17/18 17:08 Dose: 5 ml Polyethylene Glycol (Miralax) 17 gm PO DAILY [facility] Last Admin: 04/17/18 10:28 Dose: 17 gm Potassium Chloride (K-Dur 20 Meq Er Tab) 40 meq PO DAILY [facility] Last Admin: 04/17/18 10:29 Dose: 40 meq Saccharomyces Boulardii (Florastor) 250 mg PO Q12 [facility] Last Admin: 04/17/18 10:29 Dose: 250 mg - Labs Labs: 04/17/18 06:21 04/17/18 06:21 PT 13.4 SECONDS (9.7-12.2) H 04/11/18 17:04 INR 1.2 04/11/18 17:04 APTT 29 SECONDS (21-34) 04/17/18 10:45 - Constitutional Appears: Non-toxic - Head Exam Head Exam: NORMAL INSPECTION - Eye Exam Eye Exam: Normal appearance Pupil Exam: NORMAL ACCOMODATION - ENT Exam ENT Exam: Normal Exam - Neck Exam Neck Exam: Full ROM - Respiratory Exam Respiratory Exam: Decreased Breath Sounds, Rales - Cardiovascular Exam Cardiovascular Exam: REGULAR RHYTHM - GI/Abdominal Exam GI & Abdominal Exam: Soft - Extremities Exam Extremities Exam: Normal Inspection - Back Exam Back Exam: NORMAL INSPECTION - Neurological Exam Neurological Exam: Alert, Oriented x3 - Skin Skin Exam: Normal Color, Pallor Assessment and Plan - Assessment and Plan (Free Text) Assessment: s/p acute resp distress pnumonia chf aneamia cont curnt treatment Plan: as per orders
--- NOTE | 2018-04-17 19:21 | CP.PCM.PN ---
Subjective - Date & Time of Evaluation Date of Evaluation: 04/17/18 Time of Evaluation: 09:00 - Subjective Subjective: still weak and bedbound seen in ICU less SOB no fever Objective - Vital Signs/Intake and Output Vital Signs (last 24 hours): Temp Pulse Resp BP Pulse Ox 97.5 F L 70 12 148/86 99 04/17/18 16:00 04/17/18 18:00 04/17/18 18:00 04/17/18 17:36 04/17/18 18:00 Intake and Output: 04/17/18 04/18/18 18:59 06:59 Intake Total 1570 Output Total 1350 Balance 220 - Medications Medications: Current Medications Acetaminophen (Tylenol 325mg Tab) 650 mg PO Q6 PRN PRN Reason: Fever >100.4 F Acetaminophen (Tylenol 325mg Tab) 650 mg PO Q6 PRN PRN Reason: Pain, moderate (4-7) Albuterol/Ipratropium (Duoneb 3 Mg/0.5 Mg (3 Ml) Ud) 3 ml INH RQ4 [facility] Last Admin: 04/17/18 15:37 Dose: 3 ml Aspirin (Aspirin Chewable) 81 mg PO DAILY [facility] Last Admin: 04/17/18 10:29 Dose: 81 mg Famotidine (Pepcid) 20 mg PO BID [facility] Last Admin: 04/17/18 17:08 Dose: 20 mg Furosemide (Lasix) 40 mg IVP DAILY [facility] Last Admin: 04/17/18 10:37 Dose: 40 mg Guaifenesin (Robitussin) 100 mg PO Q4H PRN PRN Reason: Cough Last Admin: 04/16/18 14:34 Dose: 100 mg Heparin Sodium (Porcine) (Heparin) 5,000 units SC Q8 [facility] Last Admin: 04/17/18 13:25 Dose: 5,000 units Azithromycin 500 mg/ Sodium (Chloride) 250 mls @ 166.667 mls/hr IVPB Q24H [facility] PRN Reason: Protocol Last Admin: 04/17/18 14:39 Dose: 166.667 mls/hr Piperacillin Sod/Tazobactam (Sod 3.375 gm/ Sodium Chloride) 100 mls @ 200 mls/ hr IVPB Q8H [facility] PRN Reason: Protocol Last Admin: 04/17/18 13:25 Dose: 200 mls/hr Vancomycin/Sodium Chloride (Vancomycin 1 Gm/Ns 200 Ml) 1 gm in 200 mls @ 133.333 mls/hr IVPB Q24H [facility] PRN Reason: Protocol Last Admin: 04/17/18 11:59 Dose: 133.333 mls/hr Methylprednisolone (Solu-Medrol) 60 mg IVP Q8 [facility] Last Admin: 04/17/18 13:24 Dose: 60 mg Nystatin (Nystatin Oral Susp) 5 ml PO QID [facility] Last Admin: 04/17/18 17:08 Dose: 5 ml Polyethylene Glycol (Miralax) 17 gm PO DAILY [facility] Last Admin: 04/17/18 10:28 Dose: 17 gm Potassium Chloride (K-Dur 20 Meq Er Tab) 40 meq PO DAILY [facility] Last Admin: 04/17/18 10:29 Dose: 40 meq Saccharomyces Boulardii (Florastor) 250 mg PO Q12 [facility] Last Admin: 04/17/18 10:29 Dose: 250 mg - Labs Labs: 04/17/18 06:21 04/17/18 06:21 PT 13.4 SECONDS (9.7-12.2) H 04/11/18 17:04 INR 1.2 04/11/18 17:04 APTT 29 SECONDS (21-34) 04/17/18 10:45 - Constitutional Appears: Non-toxic, Chronically Ill - Head Exam Head Exam: NORMOCEPHALIC - Eye Exam Eye Exam: PERRL - ENT Exam ENT Exam: Mucous Membranes Dry - Neck Exam Neck Exam: absent: Lymphadenopathy - Respiratory Exam Respiratory Exam: Decreased Breath Sounds - Cardiovascular Exam Cardiovascular Exam: REGULAR RHYTHM - GI/Abdominal Exam GI & Abdominal Exam: Distended, Soft - Rectal Exam Rectal Exam: Deferred - Exam Exam: NORMAL INSPECTION - Extremities Exam Extremities Exam: Pedal Edema - Back Exam Back Exam: absent: CVA tenderness (L), CVA tenderness (R) Assessment and Plan (1) Influenza Status: Acute (2) Pneumonia Status: Acute (3) Sepsis Status: Acute (4) Bradycardia Status: Acute
[2018-04-18] MEDS: Albuterol-Ipratrop 3 mg / 0.5 (3 ml) UD INH SCH ×7 (00:16→23:46)
[2018-04-18] MEDS: Piperacillin/Tazobact 3.375 GM in Sodium Chloride 100 ML IVPB SCH ×2 (05:58→14:02)
[2018-04-18 06:09] LABS: BASO % 0.2 % (0.0-2.0); HEMOGLOBIN 11.7 g/dL (12.0-18.0); LYMPH # 0.4 K/uL (1.0-4.3); LYMPH % 3.8 % (20.0-40.0); MEAN CELL VOLUME 88.5 fL (80.0-94.0); MEAN CORPUSCULAR HEMOGLOBIN 30.4 pg (27.0-31.0); MEAN CORPUSCULAR HGB CONC 34.3 g/dL (33.0-37.0); MEAN PLATELET VOLUME 9.6 fL (7.2-11.7); MONO # 0.3 K/uL (0.0-0.8); NEUT # 9.8 K/uL (1.8-7.0); PLATELET COUNT 205 K/uL (130-400); RBC 3.86 Mil/uL (4.40-5.90); RED CELL DISTRIBUTION WIDTH 13.6 % (11.5-14.5); WHITE BLOOD COUNT 10.6 K/uL (4.8-10.8)
[2018-04-18 06:33] LABS: ALBUMIN 3.4 g/dL (3.5-5.0); ALT/SGPT 101 U/L (21-72); AST/SGOT 39 U/L (17-59); BLOOD UREA NITROGEN 30 mg/dL (9-20); CALCIUM 8.8 mg/dl (8.6-10.4); GFR NON-AFRICAN AMERICAN > 60
[2018-04-18 08:06] LABS: LARGE PLATELETS PRESENT; LYMPHOCYTE 3 % (20-40); MONOCYTE 3 % (0-10); NEUTROPHIL 94 % (50-75); PLATELET ESTIMATE NORMAL (NORMAL); TOTAL CELLS COUNTED 100
--- NOTE | 2018-04-18 08:30 | RAD ---
Date of service: 04/18/2018 HISTORY: f/u pneumonia COMPARISON: 04/17/2018. FINDINGS: LUNGS: The lungs are well inflated. There is persistent airspace disease in the right lung. There is no focal consolidation in the left lung. There is severe pulmonary venous congestion. PLEURA: No significant pleural effusion identified, no pneumothorax apparent. CARDIOVASCULAR: No change in moderate cardiomegaly. Status post CABG. There is stable position of left-sided permanent pacing device OSSEOUS STRUCTURES: No significant abnormalities. VISUALIZED UPPER ABDOMEN: Normal. OTHER FINDINGS: None. IMPRESSION: No change in patchy airspace disease in the right lung which may represent multifocal pneumonia or pulmonary edema. Background of severe pulmonary venous congestion.
[2018-04-18] MEDS: POLYETHYLENE GLYCOL 3350 17 GM/Dose PACKET PO SCH (09:44)
[2018-04-18] MEDS: Saccharomyces Boulardi 250 mg Cap PO SCH ×2 (09:44→21:22)
[2018-04-18] MEDS: Nystatin 100,000 Units/ml Oral Susp 5 ml UD PO SCH ×4 (09:45→21:22)
[2018-04-18] MEDS: Potassium Chloride 20 mEq ER Tab PO SCH (09:45)
[2018-04-18] MEDS: Vancomycin 1 gm/NS 200 ml 1 GM/200 ML BAG IVPB SCH (11:55)
--- NOTE | 2018-04-18 13:51 | CP.PCM.PN ---
Subjective - Date & Time of Evaluation Date of Evaluation: 04/18/18 Time of Evaluation: 11:10 - Subjective Subjective: Patient seen and examined Pending transfer to floor Denies shortness of breath Complaining of slight cough Afebrile No chest pain Saturation 100% Objective - Vital Signs/Intake and Output Vital Signs (last 24 hours): Temp Pulse Resp BP Pulse Ox 98.9 F 74 40 H 146/86 100 04/18/18 06:00 04/18/18 10:00 04/18/18 10:00 04/18/18 09:45 04/18/18 10:00 Intake and Output: 04/18/18 04/18/18 06:59 18:59 Intake Total 800 Output Total 300 Balance -300 800 - Medications Medications: Current Medications Acetaminophen (Tylenol 325mg Tab) 650 mg PO Q6 PRN PRN Reason: Fever >100.4 F Acetaminophen (Tylenol 325mg Tab) 650 mg PO Q6 PRN PRN Reason: Pain, moderate (4-7) Albuterol/Ipratropium (Duoneb 3 Mg/0.5 Mg (3 Ml) Ud) 3 ml INH RQ4 [facility] Last Admin: 04/18/18 10:59 Dose: 3 ml Aspirin (Aspirin Chewable) 81 mg PO DAILY [facility] Last Admin: 04/18/18 09:44 Dose: 81 mg Famotidine (Pepcid) 20 mg PO BID [facility] Last Admin: 04/18/18 09:45 Dose: 20 mg Furosemide (Lasix) 40 mg IVP DAILY [facility] Last Admin: 04/18/18 09:45 Dose: 40 mg Guaifenesin (Robitussin) 100 mg PO Q4H PRN PRN Reason: Cough Last Admin: 04/16/18 14:34 Dose: 100 mg Heparin Sodium (Porcine) (Heparin) 5,000 units SC Q8 [facility] Last Admin: 04/18/18 05:58 Dose: Not Given Azithromycin 500 mg/ Sodium (Chloride) 250 mls @ 166.667 mls/hr IVPB Q24H [facility] PRN Reason: Protocol Last Admin: 04/17/18 14:39 Dose: 166.667 mls/hr Piperacillin Sod/Tazobactam (Sod 3.375 gm/ Sodium Chloride) 100 mls @ 200 mls/ hr IVPB Q8H [facility] PRN Reason: Protocol Last Admin: 04/18/18 05:58 Dose: 200 mls/hr Vancomycin/Sodium Chloride (Vancomycin 1 Gm/Ns 200 Ml) 1 gm in 200 mls @ 133.333 mls/hr IVPB Q24H [facility] PRN Reason: Protocol Last Admin: 04/18/18 11:55 Dose: 133.333 mls/hr Methylprednisolone (Solu-Medrol) 60 mg IVP Q8 [facility] Last Admin: 04/18/18 05:58 Dose: 60 mg Nystatin (Nystatin Oral Susp) 5 ml PO QID [facility] Last Admin: 04/17/18 21:56 Dose: 5 ml Polyethylene Glycol (Miralax) 17 gm PO DAILY [facility] Last Admin: 04/18/18 09:44 Dose: 17 gm Potassium Chloride (K-Dur 20 Meq Er Tab) 40 meq PO DAILY [facility] Last Admin: 04/18/18 09:45 Dose: 40 meq Saccharomyces Boulardii (Florastor) 250 mg PO Q12 [facility] Last Admin: 04/18/18 09:44 Dose: 250 mg - Labs Labs: 04/18/18 05:57 04/18/18 05:57 PT 13.4 SECONDS (9.7-12.2) H 04/11/18 17:04 INR 1.2 04/11/18 17:04 APTT 28 SECONDS (21-34) 04/18/18 05:57 - Head Exam Head Exam: ATRAUMATIC, NORMOCEPHALIC - ENT Exam ENT Exam: Mucous Membranes Moist - Neck Exam Neck Exam: Normal Inspection - Respiratory Exam Respiratory Exam: Rales, Rhonchi - Cardiovascular Exam Cardiovascular Exam: REGULAR RHYTHM - GI/Abdominal Exam GI & Abdominal Exam: Soft, Normal Bowel Sounds - Extremities Exam Extremities Exam: Normal Inspection Assessment and Plan (1) Pneumonia Assessment & Plan: continue antibiotics Taper steroids Followup ABG and chest x-ray Status: Acute (2) CHF (congestive heart failure) Status: Acute (3) Asthma Status: Acute
[2018-04-18] MEDS: Azithromycin 500 MG in Sodium Chloride 0.9% 250 ML IVPB SCH (14:50)
--- NOTE | 2018-04-18 16:56 | CP.PCM.PN ---
Subjective - Date & Time of Evaluation Date of Evaluation: 04/18/18 Time of Evaluation: 08:00 - Subjective Subjective: afeb alert nad less sob no fever rx renewed Objective - Vital Signs/Intake and Output Vital Signs (last 24 hours): Temp Pulse Resp BP Pulse Ox 98.9 F 80 23 154/70 H 97 04/18/18 06:00 04/18/18 14:00 04/18/18 14:00 04/18/18 13:18 04/18/18 14:00 Intake and Output: 04/18/18 04/18/18 06:59 18:59 Intake Total 800 Output Total 300 Balance -300 800 - Medications Medications: Current Medications Acetaminophen (Tylenol 325mg Tab) 650 mg PO Q6 PRN PRN Reason: Fever >100.4 F Acetaminophen (Tylenol 325mg Tab) 650 mg PO Q6 PRN PRN Reason: Pain, moderate (4-7) Albuterol/Ipratropium (Duoneb 3 Mg/0.5 Mg (3 Ml) Ud) 3 ml INH RQ4 [facility] Last Admin: 04/18/18 15:52 Dose: 3 ml Aspirin (Aspirin Chewable) 81 mg PO DAILY [facility] Last Admin: 04/18/18 09:44 Dose: 81 mg Famotidine (Pepcid) 20 mg PO BID [facility] Last Admin: 04/18/18 09:45 Dose: 20 mg Furosemide (Lasix) 40 mg IVP DAILY [facility] Last Admin: 04/18/18 09:45 Dose: 40 mg Guaifenesin (Robitussin) 100 mg PO Q4H PRN PRN Reason: Cough Last Admin: 04/16/18 14:34 Dose: 100 mg Heparin Sodium (Porcine) (Heparin) 5,000 units SC Q8 [facility] Last Admin: 04/18/18 14:03 Dose: 5,000 units Azithromycin 500 mg/ Sodium (Chloride) 250 mls @ 166.667 mls/hr IVPB Q24H [facility] PRN Reason: Protocol Last Admin: 04/18/18 14:50 Dose: 166.667 mls/hr Methylprednisolone (Solu-Medrol) 40 mg IVP Q12 [facility] Nystatin (Nystatin Oral Susp) 5 ml PO QID [facility] Last Admin: 04/18/18 14:03 Dose: 5 ml Polyethylene Glycol (Miralax) 17 gm PO DAILY [facility] Last Admin: 04/18/18 09:44 Dose: 17 gm Potassium Chloride (K-Dur 20 Meq Er Tab) 40 meq PO DAILY [facility] Last Admin: 04/18/18 09:45 Dose: 40 meq Saccharomyces Boulardii (Florastor) 250 mg PO Q12 [facility] Last Admin: 04/18/18 09:44 Dose: 250 mg - Labs Labs: 04/18/18 05:57 04/18/18 05:57 PT 13.4 SECONDS (9.7-12.2) H 04/11/18 17:04 INR 1.2 04/11/18 17:04 APTT 28 SECONDS (21-34) 04/18/18 05:57 - Constitutional Appears: Non-toxic, Chronically Ill - Head Exam Head Exam: NORMOCEPHALIC - Eye Exam Eye Exam: PERRL - ENT Exam ENT Exam: Mucous Membranes Dry - Neck Exam Neck Exam: absent: Lymphadenopathy - Respiratory Exam Respiratory Exam: Decreased Breath Sounds - Cardiovascular Exam Cardiovascular Exam: REGULAR RHYTHM - GI/Abdominal Exam GI & Abdominal Exam: Distended, Soft - Rectal Exam Rectal Exam: Deferred Assessment and Plan (1) Influenza Status: Acute (2) Pneumonia Status: Acute (3) Sepsis Status: Acute (4) Bradycardia Status: Acute
[2018-04-18] MEDS: MethylPREDNISolone 40 mg Vial IVP SCH (21:21)
[2018-04-19] MEDS: Albuterol-Ipratrop 3 mg / 0.5 (3 ml) UD INH SCH ×5 (03:19→20:07)
[2018-04-19] MEDS: Potassium Chloride 20 mEq ER Tab PO SCH (10:10)
[2018-04-19] MEDS: Saccharomyces Boulardi 250 mg Cap PO SCH ×2 (10:10→21:58)
[2018-04-19] MEDS: POLYETHYLENE GLYCOL 3350 17 GM/Dose PACKET PO SCH (10:11)
[2018-04-19] MEDS: MethylPREDNISolone 40 mg Vial IVP SCH ×2 (10:11→21:59)
[2018-04-19] MEDS: Nystatin 100,000 Units/ml Oral Susp 5 ml UD PO SCH ×4 (10:12→21:59)
--- NOTE | 2018-04-19 10:36 | CP.PCM.PN ---
Subjective - Date & Time of Evaluation Date of Evaluation: 04/19/18 Time of Evaluation: 10:33 - Subjective Subjective: pt seen in [facility] tired still sob less cough Objective - Vital Signs/Intake and Output Vital Signs (last 24 hours): Temp Pulse Resp BP Pulse Ox 98.5 F 70 22 150/78 98 04/19/18 04:00 04/19/18 06:00 04/19/18 06:00 04/19/18 10:11 04/19/18 04:19 Intake and Output: 04/19/18 04/19/18 06:59 18:59 Intake Total 420 Output Total 850 Balance -430 - Medications Medications: Current Medications Acetaminophen (Tylenol 325mg Tab) 650 mg PO Q6 PRN PRN Reason: Fever >100.4 F Acetaminophen (Tylenol 325mg Tab) 650 mg PO Q6 PRN PRN Reason: Pain, moderate (4-7) Albuterol/Ipratropium (Duoneb 3 Mg/0.5 Mg (3 Ml) Ud) 3 ml INH RQ4 [facility] Last Admin: 04/19/18 03:19 Dose: 3 ml Aspirin (Aspirin Chewable) 81 mg PO DAILY [facility] Last Admin: 04/19/18 10:11 Dose: 81 mg Famotidine (Pepcid) 20 mg PO BID [facility] Last Admin: 04/19/18 10:11 Dose: 20 mg Furosemide (Lasix) 40 mg IVP DAILY [facility] Last Admin: 04/19/18 10:11 Dose: 40 mg Guaifenesin (Robitussin) 100 mg PO Q4H PRN PRN Reason: Cough Last Admin: 04/16/18 14:34 Dose: 100 mg Heparin Sodium (Porcine) (Heparin) 5,000 units SC Q8 [facility] Azithromycin 500 mg/ Sodium (Chloride) 250 mls @ 166.667 mls/hr IVPB Q24H [facility] PRN Reason: Protocol Last Admin: 04/18/18 14:50 Dose: 166.667 mls/hr Insulin Human Regular (Novolin R) 0 unit SC ACHS [facility] PRN Reason: Protocol Methylprednisolone (Solu-Medrol) 40 mg IVP Q12 [facility] Last Admin: 04/19/18 10:11 Dose: 40 mg Nystatin (Nystatin Oral Susp) 5 ml PO QID [facility] Last Admin: 04/19/18 10:12 Dose: 5 ml Polyethylene Glycol (Miralax) 17 gm PO DAILY [facility] Last Admin: 04/19/18 10:11 Dose: Not Given Saccharomyces Boulardii (Florastor) 250 mg PO Q12 [facility] Last Admin: 04/19/18 10:10 Dose: 250 mg Spironolactone (Aldactone) 25 mg PO BID [facility] - Labs Labs: 04/18/18 05:57 04/18/18 05:57 PT 13.4 SECONDS (9.7-12.2) H 04/11/18 17:04 INR 1.2 04/11/18 17:04 APTT 28 SECONDS (21-34) 04/18/18 05:57 - Constitutional Appears: Non-toxic - Head Exam Head Exam: ATRAUMATIC - Eye Exam Eye Exam: Conjunctival injection Pupil Exam: NORMAL ACCOMODATION - ENT Exam ENT Exam: Mucous Membranes Moist - Neck Exam Neck Exam: Full ROM - Respiratory Exam Respiratory Exam: Rales, Rhonchi Additional comments: more r lung base - Cardiovascular Exam Cardiovascular Exam: Tachycardia, +S1, +S2, +S4 - GI/Abdominal Exam GI & Abdominal Exam: Normal Bowel Sounds - Extremities Exam Extremities Exam: Normal Inspection - Back Exam Back Exam: NORMAL INSPECTION - Neurological Exam Neurological Exam: Alert, Awake, Normal Gait, Oriented x3 - Psychiatric Exam Psychiatric exam: Normal Affect - Skin Skin Exam: Pallor Assessment and Plan - Assessment and Plan (Free Text) Assessment: s/p ac pnumonia bronchitis chf hyperglyceamia Plan: add insulin aldactone
[2018-04-19] MEDS: (Novolin R) Insulin Human Regular 100 units/ml vial SC SCH ×3 (12:52→22:09)
[2018-04-19] MEDS: Azithromycin 500 MG in Sodium Chloride 0.9% 250 ML IVPB SCH (13:22)
--- NOTE | 2018-04-19 21:55 | CP.PCM.PN ---
Subjective - Date & Time of Evaluation Date of Evaluation: 04/19/18 Time of Evaluation: 19:20 - Subjective Subjective: patient seen and examined Dyspnea on minimal exertion Less cough Afebrile No chest pain Objective - Vital Signs/Intake and Output Vital Signs (last 24 hours): Temp Pulse Resp BP Pulse Ox 97.6 F 70 20 143/94 H 98 04/19/18 20:00 04/19/18 20:00 04/19/18 20:00 04/19/18 20:00 04/19/18 20:00 Intake and Output: 04/19/18 04/20/18 18:59 06:59 Intake Total 800 240 Output Total 350 Balance 800 -110 - Medications Medications: Current Medications Acetaminophen (Tylenol 325mg Tab) 650 mg PO Q6 PRN PRN Reason: Fever >100.4 F Acetaminophen (Tylenol 325mg Tab) 650 mg PO Q6 PRN PRN Reason: Pain, moderate (4-7) Albuterol/Ipratropium (Duoneb 3 Mg/0.5 Mg (3 Ml) Ud) 3 ml INH RQ4 [facility] Last Admin: 04/19/18 20:07 Dose: 3 ml Aspirin (Aspirin Chewable) 81 mg PO DAILY [facility] Last Admin: 04/19/18 10:11 Dose: 81 mg Famotidine (Pepcid) 20 mg PO BID [facility] Last Admin: 04/19/18 18:00 Dose: Not Given Furosemide (Lasix) 40 mg IVP DAILY [facility] Last Admin: 04/19/18 10:11 Dose: 40 mg Guaifenesin (Robitussin) 100 mg PO Q4H PRN PRN Reason: Cough Last Admin: 04/16/18 14:34 Dose: 100 mg Heparin Sodium (Porcine) (Heparin) 5,000 units SC Q8 [facility] Last Admin: 04/19/18 13:23 Dose: 5,000 units Insulin Human Regular (Novolin R) 0 unit SC ACHS [facility] PRN Reason: Protocol Last Admin: 04/19/18 16:52 Dose: 5 units Methylprednisolone (Solu-Medrol) 40 mg IVP Q12 [facility] Last Admin: 04/19/18 10:11 Dose: 40 mg Nystatin (Nystatin Oral Susp) 5 ml PO QID [facility] Last Admin: 04/19/18 17:44 Dose: 5 ml Polyethylene Glycol (Miralax) 17 gm PO DAILY [facility] Last Admin: 04/19/18 10:11 Dose: Not Given Saccharomyces Boulardii (Florastor) 250 mg PO Q12 [facility] Last Admin: 04/19/18 10:10 Dose: 250 mg Spironolactone (Aldactone) 25 mg PO BID [facility] Last Admin: 04/19/18 17:23 Dose: 25 mg - Labs Labs: 04/18/18 05:57 04/18/18 05:57 PT 13.4 SECONDS (9.7-12.2) H 04/11/18 17:04 INR 1.2 04/11/18 17:04 APTT 28 SECONDS (21-34) 04/18/18 05:57 - Head Exam Head Exam: ATRAUMATIC, NORMOCEPHALIC - Eye Exam Eye Exam: Normal appearance - ENT Exam ENT Exam: Mucous Membranes Moist - Respiratory Exam Respiratory Exam: Rales - Cardiovascular Exam Cardiovascular Exam: REGULAR RHYTHM Assessment and Plan (1) Pneumonia Assessment & Plan: IV antibiotics Follow-up chest x-ray Nebulizer treatment and tapering steroids Diuretics as needed Status: Acute (2) CHF (congestive heart failure) Status: Acute (3) Asthma Status: Acute
[2018-04-20] MEDS: Albuterol-Ipratrop 3 mg / 0.5 (3 ml) UD INH SCH (07:55)
[2018-04-20] MEDS: MethylPREDNISolone 40 mg Vial IVP SCH (09:10)
[2018-04-20] MEDS: Nystatin 100,000 Units/ml Oral Susp 5 ml UD PO SCH ×4 (09:10→23:05)
[2018-04-20] MEDS: Saccharomyces Boulardi 250 mg Cap PO SCH ×2 (09:10→22:22)
[2018-04-20] MEDS: POLYETHYLENE GLYCOL 3350 17 GM/Dose PACKET PO SCH (09:10)
[2018-04-20] MEDS: (Novolin R) Insulin Human Regular 100 units/ml vial SC SCH ×4 (09:11→22:18)
--- NOTE | 2018-04-20 10:29 | CP.PCM.PN ---
Subjective - Date & Time of Evaluation Date of Evaluation: 04/20/18 Time of Evaluation: 10:27 - Subjective Subjective: pt seen in the floor comfortale no cough no wheesing [facility] tired Objective - Vital Signs/Intake and Output Vital Signs (last 24 hours): Temp Pulse Resp BP Pulse Ox 97.5 F L 65 18 167/93 H 97 04/20/18 09:55 04/20/18 09:55 04/20/18 09:55 04/20/18 09:55 04/20/18 09:55 Intake and Output: 04/20/18 04/20/18 06:59 18:59 Intake Total 420 120 Output Total 1250 700 Balance -830 -580 - Medications Medications: Current Medications Acetaminophen (Tylenol 325mg Tab) 650 mg PO Q6 PRN PRN Reason: Fever >100.4 F Acetaminophen (Tylenol 325mg Tab) 650 mg PO Q6 PRN PRN Reason: Pain, moderate (4-7) Albuterol/Ipratropium (Duoneb 3 Mg/0.5 Mg (3 Ml) Ud) 3 ml INH RQ4 [facility] Last Admin: 04/20/18 07:55 Dose: 3 ml Aspirin (Aspirin Chewable) 81 mg PO DAILY [facility] Last Admin: 04/20/18 09:10 Dose: 81 mg Famotidine (Pepcid) 20 mg PO BID [facility] Last Admin: 04/20/18 09:10 Dose: 20 mg Furosemide (Lasix) 40 mg IVP DAILY [facility] Last Admin: 04/20/18 09:09 Dose: 40 mg Guaifenesin (Robitussin) 100 mg PO Q4H PRN PRN Reason: Cough Last Admin: 04/16/18 14:34 Dose: 100 mg Heparin Sodium (Porcine) (Heparin) 5,000 units SC Q8 [facility] Last Admin: 04/20/18 06:30 Dose: 5,000 units Insulin Human Regular (Novolin R) 0 unit SC ACHS [facility] PRN Reason: Protocol Last Admin: 04/20/18 09:11 Dose: 2 units Nystatin (Nystatin Oral Susp) 5 ml PO QID [facility] Last Admin: 04/20/18 09:10 Dose: 5 ml Polyethylene Glycol (Miralax) 17 gm PO DAILY [facility] Last Admin: 04/20/18 09:10 Dose: 17 gm Prednisone (Prednisone Tab) 20 mg PO DAILY [facility] Saccharomyces Boulardii (Florastor) 250 mg PO Q12 [facility] Last Admin: 04/20/18 09:10 Dose: 250 mg Spironolactone (Aldactone) 25 mg PO BID [facility] Last Admin: 04/20/18 09:10 Dose: 25 mg - Labs Labs: 04/18/18 05:57 04/18/18 05:57 PT 13.4 SECONDS (9.7-12.2) H 04/11/18 17:04 INR 1.2 04/11/18 17:04 APTT 28 SECONDS (21-34) 04/18/18 05:57 - Constitutional Appears: Non-toxic - Head Exam Head Exam: NORMAL INSPECTION - Eye Exam Eye Exam: Normal appearance Pupil Exam: NORMAL ACCOMODATION - ENT Exam ENT Exam: Mucous Membranes Moist - Neck Exam Neck Exam: Normal Inspection - Respiratory Exam Respiratory Exam: Decreased Breath Sounds, Rales - Cardiovascular Exam Cardiovascular Exam: REGULAR RHYTHM - GI/Abdominal Exam GI & Abdominal Exam: Soft - Rectal Exam Rectal Exam: Deferred - Exam External exam: NORMAL EXTERNAL EXAM - Extremities Exam Extremities Exam: Normal Inspection - Back Exam Back Exam: NORMAL INSPECTION - Neurological Exam Neurological Exam: Alert, Awake, Oriented x3 - Skin Skin Exam: Pallor Assessment and Plan - Assessment and Plan (Free Text) Assessment: pnumonia chf hypoxeamia copd generalised weekness hyper glyceamia Plan: taper steroids
--- NOTE | 2018-04-20 13:46 | CP.PCM.PN ---
Subjective - Date & Time of Evaluation Date of Evaluation: 04/20/18 Time of Evaluation: 08:00 - Subjective Subjective: slow progress iv rx renewed Objective - Vital Signs/Intake and Output Vital Signs (last 24 hours): Temp Pulse Resp BP Pulse Ox 97.5 F L 75 18 167/93 H 97 04/20/18 09:55 04/20/18 11:49 04/20/18 09:55 04/20/18 09:55 04/20/18 09:55 Intake and Output: 04/20/18 04/20/18 06:59 18:59 Intake Total 420 120 Output Total 1250 700 Balance -830 -580 - Medications Medications: Current Medications Acetaminophen (Tylenol 325mg Tab) 650 mg PO Q6 PRN PRN Reason: Fever >100.4 F Acetaminophen (Tylenol 325mg Tab) 650 mg PO Q6 PRN PRN Reason: Pain, moderate (4-7) Albuterol/Ipratropium (Duoneb 3 Mg/0.5 Mg (3 Ml) Ud) 3 ml INH RQ4 [facility] Last Admin: 04/20/18 07:55 Dose: 3 ml Aspirin (Aspirin Chewable) 81 mg PO DAILY [facility] Last Admin: 04/20/18 09:10 Dose: 81 mg Famotidine (Pepcid) 20 mg PO BID [facility] Last Admin: 04/20/18 09:10 Dose: 20 mg Furosemide (Lasix) 40 mg IVP DAILY [facility] Last Admin: 04/20/18 09:09 Dose: 40 mg Guaifenesin (Robitussin) 100 mg PO Q4H PRN PRN Reason: Cough Last Admin: 04/16/18 14:34 Dose: 100 mg Heparin Sodium (Porcine) (Heparin) 5,000 units SC Q8 [facility] Last Admin: 04/20/18 13:15 Dose: 5,000 units Insulin Human Regular (Novolin R) 0 unit SC ACHS [facility] PRN Reason: Protocol Last Admin: 04/20/18 11:59 Dose: 3 units Nystatin (Nystatin Oral Susp) 5 ml PO QID [facility] Last Admin: 04/20/18 13:15 Dose: 5 ml Polyethylene Glycol (Miralax) 17 gm PO DAILY [facility] Last Admin: 04/20/18 09:10 Dose: 17 gm Prednisone (Prednisone Tab) 20 mg PO DAILY [facility] Last Admin: 04/20/18 11:58 Dose: 20 mg Saccharomyces Boulardii (Florastor) 250 mg PO Q12 [facility] Last Admin: 04/20/18 09:10 Dose: 250 mg Spironolactone (Aldactone) 25 mg PO BID [facility] Last Admin: 04/20/18 09:10 Dose: 25 mg - Labs Labs: 04/18/18 05:57 04/18/18 05:57 PT 13.4 SECONDS (9.7-12.2) H 04/11/18 17:04 INR 1.2 04/11/18 17:04 APTT 28 SECONDS (21-34) 04/18/18 05:57 - Constitutional Appears: Non-toxic, Chronically Ill - Head Exam Head Exam: NORMOCEPHALIC - Eye Exam Eye Exam: PERRL - ENT Exam ENT Exam: Mucous Membranes Dry - Neck Exam Neck Exam: absent: Lymphadenopathy - Respiratory Exam Respiratory Exam: Decreased Breath Sounds - Cardiovascular Exam Cardiovascular Exam: REGULAR RHYTHM - GI/Abdominal Exam GI & Abdominal Exam: Distended - Rectal Exam Rectal Exam: Deferred - Exam Exam: NORMAL INSPECTION - Extremities Exam Extremities Exam: absent: Pedal Edema - Back Exam Back Exam: absent: CVA tenderness (L), CVA tenderness (R) Assessment and Plan (1) Influenza Status: Acute (2) Pneumonia Status: Acute (3) Sepsis Status: Acute (4) Bradycardia Status: Acute - Assessment and Plan (Free Text) Assessment: slow progress cont rx for pneumonia, CHF COPD
[2018-04-20] MEDS: Piperacill/Tazo 3.375gm in Dex 3.375 GM/50 ML BAG IVPB SCH ×2 (14:38→22:22)
[2018-04-21] MEDS: Piperacill/Tazo 3.375gm in Dex 3.375 GM/50 ML BAG IVPB SCH ×3 (05:28→21:51)
[2018-04-21] MEDS: POLYETHYLENE GLYCOL 3350 17 GM/Dose PACKET PO SCH (09:03)
[2018-04-21] MEDS: Saccharomyces Boulardi 250 mg Cap PO SCH ×2 (09:03→21:51)
[2018-04-21] MEDS: (Novolin R) Insulin Human Regular 100 units/ml vial SC SCH ×4 (09:04→23:09)
[2018-04-21] MEDS: Nystatin 100,000 Units/ml Oral Susp 5 ml UD PO SCH ×4 (09:04→21:51)
--- NOTE | 2018-04-21 17:11 | CP.PCM.PN ---
Subjective - Date & Time of Evaluation Date of Evaluation: 04/21/18 Time of Evaluation: 17:09 - Subjective Subjective: feels beter vss Objective - Vital Signs/Intake and Output Vital Signs (last 24 hours): Temp Pulse Resp BP Pulse Ox 97.4 F L 70 20 147/94 H 98 04/21/18 15:00 04/21/18 15:45 04/21/18 15:00 04/21/18 15:00 04/21/18 15:00 Intake and Output: 04/21/18 04/21/18 06:59 18:59 Intake Total 50 Output Total 1100 Balance -1050 - Medications Medications: Current Medications Acetaminophen (Tylenol 325mg Tab) 650 mg PO Q6 PRN PRN Reason: Fever >100.4 F Acetaminophen (Tylenol 325mg Tab) 650 mg PO Q6 PRN PRN Reason: Pain, moderate (4-7) Amlodipine Besylate (Norvasc) 10 mg PO DAILY [facility] Last Admin: 04/21/18 12:17 Dose: Not Given Aspirin (Aspirin Chewable) 81 mg PO DAILY [facility] Last Admin: 04/21/18 09:03 Dose: 81 mg Famotidine (Pepcid) 20 mg PO BID [facility] Last Admin: 04/21/18 09:03 Dose: 20 mg Furosemide (Lasix) 40 mg IVP DAILY [facility] Last Admin: 04/21/18 09:03 Dose: 40 mg Guaifenesin (Robitussin) 100 mg PO Q4H PRN PRN Reason: Cough Last Admin: 04/16/18 14:34 Dose: 100 mg Heparin Sodium (Porcine) (Heparin) 5,000 units SC Q8 [facility] Last Admin: 04/21/18 13:22 Dose: 5,000 units Piperacillin Sod/Tazobactam Sod (Zosyn 3.375 Gm Iv Premix) 3.375 gm in 50 mls @ 100 mls/hr IVPB Q8H [facility] PRN Reason: Protocol Last Admin: 04/21/18 13:23 Dose: 100 mls/hr Insulin Human Regular (Novolin R) 0 unit SC ACHS [facility] PRN Reason: Protocol Last Admin: 04/21/18 12:53 Dose: 3 units Losartan Potassium (Cozaar) 100 mg PO DAILY [facility] Last Admin: 04/21/18 11:32 Dose: 100 mg Nystatin (Nystatin Oral Susp) 5 ml PO QID [facility] Last Admin: 04/21/18 13:22 Dose: 5 ml Polyethylene Glycol (Miralax) 17 gm PO DAILY [facility] Last Admin: 04/21/18 09:03 Dose: 17 gm Prednisone (Prednisone Tab) 20 mg PO DAILY [facility] Last Admin: 04/21/18 09:03 Dose: 20 mg Saccharomyces Boulardii (Florastor) 250 mg PO Q12 [facility] Last Admin: 04/21/18 09:03 Dose: 250 mg Spironolactone (Aldactone) 25 mg PO BID [facility] Last Admin: 04/21/18 09:03 Dose: 25 mg - Labs Labs: 04/18/18 05:57 04/18/18 05:57 PT 13.4 SECONDS (9.7-12.2) H 04/11/18 17:04 INR 1.2 04/11/18 17:04 APTT 28 SECONDS (21-34) 04/18/18 05:57 - Constitutional Appears: Non-toxic - Head Exam Head Exam: NORMAL INSPECTION - Eye Exam Eye Exam: Normal appearance Pupil Exam: NORMAL ACCOMODATION - ENT Exam ENT Exam: Mucous Membranes Moist - Neck Exam Neck Exam: Normal Inspection - Respiratory Exam Respiratory Exam: Clear to Ausculation Bilateral, Rales - Cardiovascular Exam Cardiovascular Exam: REGULAR RHYTHM - GI/Abdominal Exam GI & Abdominal Exam: Normal Bowel Sounds - Rectal Exam Rectal Exam: NORMAL INSPECTION - Exam Exam: NORMAL INSPECTION - Extremities Exam Extremities Exam: Full ROM - Back Exam Back Exam: NORMAL INSPECTION - Neurological Exam Neurological Exam: Alert, Normal Gait, Oriented x3 - Psychiatric Exam Psychiatric exam: Normal Mood - Skin Skin Exam: Dry Assessment and Plan - Assessment and Plan (Free Text) Assessment: chf pnumonia dm hypoxeamia Plan: cont as per orders
--- NOTE | 2018-04-21 18:05 | CP.PCM.PN ---
Subjective - Date & Time of Evaluation Date of Evaluation: 04/21/18 Time of Evaluation: 09:40 - Subjective Subjective: patient seen and examined Condition continued to improve Dyspnea on exertion Afebrile No cough noted Objective - Vital Signs/Intake and Output Vital Signs (last 24 hours): Temp Pulse Resp BP Pulse Ox 97.4 F L 70 20 147/94 H 98 04/21/18 15:00 04/21/18 15:45 04/21/18 15:00 04/21/18 15:00 04/21/18 15:00 Intake and Output: 04/21/18 04/21/18 06:59 18:59 Intake Total 50 Output Total 1100 1000 Balance -1050 -1000 - Medications Medications: Current Medications Acetaminophen (Tylenol 325mg Tab) 650 mg PO Q6 PRN PRN Reason: Fever >100.4 F Acetaminophen (Tylenol 325mg Tab) 650 mg PO Q6 PRN PRN Reason: Pain, moderate (4-7) Amlodipine Besylate (Norvasc) 10 mg PO DAILY [facility] Last Admin: 04/21/18 12:17 Dose: Not Given Aspirin (Aspirin Chewable) 81 mg PO DAILY [facility] Last Admin: 04/21/18 09:03 Dose: 81 mg Famotidine (Pepcid) 20 mg PO BID [facility] Last Admin: 04/21/18 17:31 Dose: 20 mg Furosemide (Lasix) 40 mg IVP DAILY [facility] Last Admin: 04/21/18 09:03 Dose: 40 mg Guaifenesin (Robitussin) 100 mg PO Q4H PRN PRN Reason: Cough Last Admin: 04/16/18 14:34 Dose: 100 mg Heparin Sodium (Porcine) (Heparin) 5,000 units SC Q8 [facility] Last Admin: 04/21/18 13:22 Dose: 5,000 units Piperacillin Sod/Tazobactam Sod (Zosyn 3.375 Gm Iv Premix) 3.375 gm in 50 mls @ 100 mls/hr IVPB Q8H [facility] PRN Reason: Protocol Last Admin: 04/21/18 13:23 Dose: 100 mls/hr Insulin Human Regular (Novolin R) 0 unit SC ACHS [facility] PRN Reason: Protocol Last Admin: 04/21/18 17:31 Dose: 3 units Losartan Potassium (Cozaar) 100 mg PO DAILY [facility] Last Admin: 04/21/18 11:32 Dose: 100 mg Nystatin (Nystatin Oral Susp) 5 ml PO QID [facility] Last Admin: 04/21/18 17:30 Dose: 5 ml Polyethylene Glycol (Miralax) 17 gm PO DAILY [facility] Last Admin: 04/21/18 09:03 Dose: 17 gm Prednisone (Prednisone Tab) 20 mg PO DAILY [facility] Last Admin: 04/21/18 09:03 Dose: 20 mg Saccharomyces Boulardii (Florastor) 250 mg PO Q12 [facility] Last Admin: 04/21/18 09:03 Dose: 250 mg Spironolactone (Aldactone) 25 mg PO BID [facility] Last Admin: 04/21/18 17:33 Dose: 25 mg - Labs Labs: 04/18/18 05:57 04/18/18 05:57 PT 13.4 SECONDS (9.7-12.2) H 04/11/18 17:04 INR 1.2 04/11/18 17:04 APTT 28 SECONDS (21-34) 04/18/18 05:57 - Head Exam Head Exam: ATRAUMATIC, NORMOCEPHALIC - ENT Exam ENT Exam: Mucous Membranes Moist - Neck Exam Neck Exam: Normal Inspection - Respiratory Exam Respiratory Exam: Clear to Ausculation Bilateral - Cardiovascular Exam Cardiovascular Exam: REGULAR RHYTHM - GI/Abdominal Exam GI & Abdominal Exam: Soft, Normal Bowel Sounds Assessment and Plan (1) Pneumonia Assessment & Plan: Continue antibiotics Followup chest x-ray Steroids and nebuli treat Status: Acute (2) CHF (congestive heart failure) Status: Acute (3) Asthma Status: Acute
[2018-04-21] MEDS: Mupirocin 2% Ointment (NASAL) NAS SCH (23:09)
[2018-04-22] MEDS: Piperacill/Tazo 3.375gm in Dex 3.375 GM/50 ML BAG IVPB SCH ×3 (05:44→21:30)
[2018-04-22] MEDS: (Novolin R) Insulin Human Regular 100 units/ml vial SC SCH ×3 (08:30→18:38)
[2018-04-22] MEDS: Mupirocin 2% Ointment (NASAL) NAS SCH ×2 (10:36→18:38)
[2018-04-22] MEDS: Saccharomyces Boulardi 250 mg Cap PO SCH ×2 (10:41→21:30)
[2018-04-22] MEDS: POLYETHYLENE GLYCOL 3350 17 GM/Dose PACKET PO SCH (10:41)
[2018-04-22] MEDS: Nystatin 100,000 Units/ml Oral Susp 5 ml UD PO SCH ×4 (10:49→21:30)
--- NOTE | 2018-04-22 10:55 | RAD ---
Chest x-ray single frontal view History: Pneumonia. Comparison: 04/11/2018 Findings: Biapical pleural thickening with upper lobe granulomatous changes. Mild venous congestion. Scattered nodular densities in the lung sullivan. Patchy increased markings at the lung bases. Enlarged ectatic aorta. Status post median sternotomy and CABG. Cardiomegaly. Left-sided pacemaker. Degenerative changes in the spine and shoulders. Impression: Biapical pleural thickening with upper lobe granulomatous changes. Mild venous congestion. Scattered nodular densities in the lung sullivan. Patchy increased markings at the lung bases. Enlarged ectatic aorta. Status post median sternotomy and CABG. Cardiomegaly. Left-sided pacemaker. Degenerative changes in the spine and shoulders.
--- NOTE | 2018-04-22 10:56 | CP.PCM.PN ---
Subjective - Date & Time of Evaluation Date of Evaluation: 04/22/18 Time of Evaluation: 10:53 - Subjective Subjective: feels weeke unstable gait as per pt less cough less sob Objective - Vital Signs/Intake and Output Vital Signs (last 24 hours): Temp Pulse Resp BP Pulse Ox 97.6 F 71 20 139/71 97 04/22/18 07:00 04/22/18 10:35 04/22/18 07:00 04/22/18 10:38 04/22/18 07:00 Intake and Output: 04/22/18 04/22/18 06:59 18:59 Intake Total 791 Output Total 950 Balance -159 - Medications Medications: Current Medications Acetaminophen (Tylenol 325mg Tab) 650 mg PO Q6 PRN PRN Reason: Fever >100.4 F Acetaminophen (Tylenol 325mg Tab) 650 mg PO Q6 PRN PRN Reason: Pain, moderate (4-7) Amlodipine Besylate (Norvasc) 10 mg PO DAILY [facility] Last Admin: 04/22/18 10:40 Dose: 10 mg Aspirin (Aspirin Chewable) 81 mg PO DAILY [facility] Last Admin: 04/22/18 10:41 Dose: 81 mg Famotidine (Pepcid) 20 mg PO BID [facility] Last Admin: 04/22/18 10:40 Dose: 20 mg Furosemide (Lasix) 40 mg IVP DAILY [facility] Last Admin: 04/22/18 10:38 Dose: 40 mg Guaifenesin (Robitussin) 100 mg PO Q4H PRN PRN Reason: Cough Last Admin: 04/16/18 14:34 Dose: 100 mg Heparin Sodium (Porcine) (Heparin) 5,000 units SC Q8 [facility] Last Admin: 04/22/18 05:46 Dose: 5,000 units Piperacillin Sod/Tazobactam Sod (Zosyn 3.375 Gm Iv Premix) 3.375 gm in 50 mls @ 100 mls/hr IVPB Q8H [facility] PRN Reason: Protocol Last Admin: 04/22/18 05:44 Dose: 100 mls/hr Insulin Human Regular (Novolin R) 0 unit SC ACHS [facility] PRN Reason: Protocol Last Admin: 04/22/18 08:30 Dose: 1 units Losartan Potassium (Cozaar) 100 mg PO DAILY [facility] Last Admin: 04/22/18 10:41 Dose: 100 mg Mupirocin (Bactroban 2% Nasal) 0.25 gm AWILDA BID [facility] Last Admin: 04/22/18 10:36 Dose: 0.25 gm Nystatin (Nystatin Oral Susp) 5 ml PO QID [facility] Last Admin: 04/22/18 10:49 Dose: 5 ml Polyethylene Glycol (Miralax) 17 gm PO DAILY [facility] Last Admin: 04/22/18 10:41 Dose: 17 gm Prednisone (Prednisone Tab) 20 mg PO DAILY [facility] Last Admin: 04/22/18 10:41 Dose: 20 mg Saccharomyces Boulardii (Florastor) 250 mg PO Q12 [facility] Last Admin: 04/22/18 10:41 Dose: 250 mg Spironolactone (Aldactone) 25 mg PO BID [facility] Last Admin: 04/22/18 10:40 Dose: 25 mg - Labs Labs: 04/18/18 05:57 04/18/18 05:57 PT 13.4 SECONDS (9.7-12.2) H 04/11/18 17:04 INR 1.2 04/11/18 17:04 APTT 28 SECONDS (21-34) 04/18/18 05:57 - Constitutional Appears: Non-toxic - Head Exam Head Exam: NORMAL INSPECTION - Eye Exam Eye Exam: Normal appearance - ENT Exam ENT Exam: Normal Exam - Neck Exam Neck Exam: Normal Inspection - Respiratory Exam Respiratory Exam: Decreased Breath Sounds - Cardiovascular Exam Cardiovascular Exam: REGULAR RHYTHM - GI/Abdominal Exam GI & Abdominal Exam: Normal Bowel Sounds - Exam Exam: NORMAL INSPECTION - Extremities Exam Extremities Exam: Normal Inspection - Back Exam Back Exam: NORMAL INSPECTION - Neurological Exam Neurological Exam: Awake, Oriented x3 - Psychiatric Exam Psychiatric exam: Normal Mood - Skin Skin Exam: Normal Color Assessment and Plan - Assessment and Plan (Free Text) Assessment: ac pnumonia improved ac chf beter generalised weekness cont pt dm cont as per orders
--- NOTE | 2018-04-22 17:35 | CP.PCM.PN ---
Subjective - Date & Time of Evaluation Date of Evaluation: 04/22/18 Time of Evaluation: 10:00 - Subjective Subjective: pt seen and examined periods of confusion No shortness of breath or cough Afebrile Continue antibiotics chest x-ray improving Continue present treatment for now Objective - Vital Signs/Intake and Output Vital Signs (last 24 hours): Temp Pulse Resp BP Pulse Ox 97.8 F 70 18 105/69 100 04/22/18 15:40 04/22/18 15:40 04/22/18 15:40 04/22/18 15:40 04/22/18 15:40 Intake and Output: 04/22/18 04/22/18 06:59 18:59 Intake Total 791 250 Output Total 950 Balance -159 250 - Medications Medications: Current Medications Acetaminophen (Tylenol 325mg Tab) 650 mg PO Q6 PRN PRN Reason: Fever >100.4 F Acetaminophen (Tylenol 325mg Tab) 650 mg PO Q6 PRN PRN Reason: Pain, moderate (4-7) Amlodipine Besylate (Norvasc) 10 mg PO DAILY [facility] Last Admin: 04/22/18 10:40 Dose: 10 mg Aspirin (Aspirin Chewable) 81 mg PO DAILY [facility] Last Admin: 04/22/18 10:41 Dose: 81 mg Famotidine (Pepcid) 20 mg PO BID [facility] Last Admin: 04/22/18 10:40 Dose: 20 mg Furosemide (Lasix) 40 mg IVP DAILY [facility] Last Admin: 04/22/18 10:38 Dose: 40 mg Guaifenesin (Robitussin) 100 mg PO Q4H PRN PRN Reason: Cough Last Admin: 04/16/18 14:34 Dose: 100 mg Piperacillin Sod/Tazobactam Sod (Zosyn 3.375 Gm Iv Premix) 3.375 gm in 50 mls @ 100 mls/hr IVPB Q8H [facility] PRN Reason: Protocol Last Admin: 04/22/18 13:21 Dose: 100 mls/hr Insulin Human Regular (Novolin R) 0 unit SC ACHS [facility] PRN Reason: Protocol Last Admin: 04/22/18 12:30 Dose: 3 units Losartan Potassium (Cozaar) 100 mg PO DAILY [facility] Last Admin: 04/22/18 10:41 Dose: 100 mg Mupirocin (Bactroban 2% Nasal) 0.25 gm AWILDA BID [facility] Last Admin: 04/22/18 10:36 Dose: 0.25 gm Nystatin (Nystatin Oral Susp) 5 ml PO QID [facility] Last Admin: 04/22/18 13:05 Dose: 5 ml Polyethylene Glycol (Miralax) 17 gm PO DAILY [facility] Last Admin: 04/22/18 10:41 Dose: 17 gm Prednisone (Prednisone Tab) 20 mg PO DAILY [facility] Last Admin: 04/22/18 10:41 Dose: 20 mg Saccharomyces Boulardii (Florastor) 250 mg PO Q12 [facility] Last Admin: 04/22/18 10:41 Dose: 250 mg Spironolactone (Aldactone) 25 mg PO BID [facility] Last Admin: 04/22/18 10:40 Dose: 25 mg - Labs Labs: 04/18/18 05:57 04/18/18 05:57 PT 13.4 SECONDS (9.7-12.2) H 04/11/18 17:04 INR 1.2 04/11/18 17:04 APTT 28 SECONDS (21-34) 04/18/18 05:57 Assessment and Plan (1) Pneumonia Status: Acute (2) CHF (congestive heart failure) Status: Acute (3) Asthma Status: Acute
[2018-04-23] MEDS: (Novolin R) Insulin Human Regular 100 units/ml vial SC SCH ×5 (00:28→21:28)
[2018-04-23] MEDS: Piperacill/Tazo 3.375gm in Dex 3.375 GM/50 ML BAG IVPB SCH ×3 (05:12→21:09)
[2018-04-23 08:32] LABS: MEAN CELL VOLUME 88.2 fL (80.0-94.0); MEAN PLATELET VOLUME 9.1 fL (7.2-11.7); RBC 5.37 Mil/uL (4.40-5.90)
[2018-04-23 08:41] LABS: HEMOGLOBIN 16.1 g/dL (12.0-18.0); WHITE BLOOD COUNT 19.4 K/uL (4.8-10.8)
[2018-04-23 09:28] LABS: CALCIUM 9.1 mg/dl (8.6-10.4)
[2018-04-23] MEDS: POLYETHYLENE GLYCOL 3350 17 GM/Dose PACKET PO SCH (09:57)
[2018-04-23] MEDS: Nystatin 100,000 Units/ml Oral Susp 5 ml UD PO SCH ×4 (09:57→21:09)
[2018-04-23] MEDS: Saccharomyces Boulardi 250 mg Cap PO SCH (09:58)
[2018-04-23] MEDS: Mupirocin 2% Ointment (NASAL) NAS SCH ×2 (09:58→17:48)
--- NOTE | 2018-04-23 11:40 | CP.PCM.PN ---
Subjective - Date & Time of Evaluation Date of Evaluation: 04/23/18 Time of Evaluation: 11:37 - Subjective Subjective: pt feels weeke less sob less cough wbchi Objective - Vital Signs/Intake and Output Vital Signs (last 24 hours): Temp Pulse Resp BP Pulse Ox 97.8 F 70 18 123/82 100 04/23/18 07:00 04/23/18 07:00 04/23/18 07:00 04/23/18 09:59 04/23/18 07:00 - Medications Medications: Current Medications Acetaminophen (Tylenol 325mg Tab) 650 mg PO Q6 PRN PRN Reason: Fever >100.4 F Acetaminophen (Tylenol 325mg Tab) 650 mg PO Q6 PRN PRN Reason: Pain, moderate (4-7) Amlodipine Besylate (Norvasc) 10 mg PO DAILY [facility] Last Admin: 04/23/18 09:58 Dose: 10 mg Aspirin (Aspirin Chewable) 81 mg PO DAILY [facility] Last Admin: 04/23/18 09:58 Dose: 81 mg Famotidine (Pepcid) 20 mg PO BID [facility] Last Admin: 04/23/18 09:58 Dose: 20 mg Furosemide (Lasix) 40 mg IVP DAILY [facility] Last Admin: 04/23/18 09:59 Dose: 40 mg Guaifenesin (Robitussin) 100 mg PO Q4H PRN PRN Reason: Cough Last Admin: 04/16/18 14:34 Dose: 100 mg Piperacillin Sod/Tazobactam Sod (Zosyn 3.375 Gm Iv Premix) 3.375 gm in 50 mls @ 100 mls/hr IVPB Q8H [facility] PRN Reason: Protocol Last Admin: 04/23/18 05:12 Dose: 100 mls/hr Insulin Human Regular (Novolin R) 0 unit SC ACHS [facility] PRN Reason: Protocol Last Admin: 04/23/18 07:29 Dose: Not Given Losartan Potassium (Cozaar) 100 mg PO DAILY [facility] Last Admin: 04/23/18 09:58 Dose: 100 mg Mupirocin (Bactroban 2% Nasal) 0.25 gm AWILDA BID [facility] Last Admin: 04/23/18 09:58 Dose: 0.25 gm Nystatin (Nystatin Oral Susp) 5 ml PO QID [facility] Last Admin: 04/23/18 09:57 Dose: 5 ml Polyethylene Glycol (Miralax) 17 gm PO DAILY [facility] Last Admin: 04/23/18 09:57 Dose: 17 gm Prednisone (Prednisone Tab) 20 mg PO DAILY [facility] Last Admin: 04/23/18 09:58 Dose: 20 mg Saccharomyces Boulardii (Florastor) 250 mg PO Q12 [facility] Last Admin: 04/23/18 09:58 Dose: 250 mg Spironolactone (Aldactone) 25 mg PO BID [facility] Last Admin: 04/23/18 09:57 Dose: 25 mg - Labs Labs: 04/23/18 08:17 04/23/18 08:17 PT 13.4 SECONDS (9.7-12.2) H 04/11/18 17:04 INR 1.2 04/11/18 17:04 APTT 28 SECONDS (21-34) 04/18/18 05:57 - Constitutional Appears: Non-toxic - Head Exam Head Exam: ATRAUMATIC - Eye Exam Eye Exam: Normal appearance Pupil Exam: NORMAL ACCOMODATION - ENT Exam ENT Exam: Normal Exam - Neck Exam Neck Exam: Full ROM - Respiratory Exam Respiratory Exam: Decreased Breath Sounds, Rales - Cardiovascular Exam Cardiovascular Exam: REGULAR RHYTHM - GI/Abdominal Exam GI & Abdominal Exam: Soft - Rectal Exam Rectal Exam: Deferred - Exam Exam: NORMAL INSPECTION - Extremities Exam Extremities Exam: Normal Capillary Refill - Neurological Exam Neurological Exam: Alert, Awake, Oriented x3 - Psychiatric Exam Psychiatric exam: Normal Mood - Skin Skin Exam: Intact Assessment and Plan - Assessment and Plan (Free Text) Assessment: ac pnumonia ac chf dmgeneralised weekness Plan: cont med arakeira for chuck
--- NOTE | 2018-04-23 13:02 | CT ---
Date of service: 04/23/2018 PROCEDURE: CT Chest without contrast HISTORY: Abnormal findings on x-ray. Shortness of breath. COMPARISON: Comparison made with CTA chest dated 04/12/2018. TECHNIQUE: Contiguous axial images were obtained through the chest without intravenous contrast enhancement. Sagittal and coronal reconstructions were performed. Radiation dose (DLP): 517.16 mGy-cm. This CT exam was performed using one or more of the following dose reduction techniques: Automated exposure control, adjustment of the mA and/or kV according to patient size, and/or use of iterative reconstruction technique. FINDINGS: LUNGS: Interstitial fibrosis upper lobe predominance right greater than left. Previously noted alveolar-type infiltrates throughout the right lung and to a lesser degree left lung improved. Of the highly under. MEDIASTINUM: Heart remains enlarged. Ascending thoracic aorta measures approximately 4.4 cm and descending thoracic aorta measures approximately 2.9 cm. Pulmonary trunk measures approximately 3.4 cm. Few small nonspecific mediastinal lymph nodes are present. Evaluation for hilar adenopathy is limited due to the lack of circulating intravenous contrast material. Central airways midline and patent. No large cyst central endoluminal lesions identified. Air is present the within the upper/mid to lower esophagus. PLEURA: No pleural fluid. No pneumothorax. BONES: Multilevel degenerative spondylosis of the thoracic and lower cervical spine. Minor chronic anterior stature loss of what appears be the T12 segment unchanged. Persistent slight kyphosis centered at this level. UPPER ABDOMEN: Cholelithiasis again noted. Other Findings None. IMPRESSION: Bilateral interstitial fibrosis upper lobe predominance right greater than left. Interval improvement previously noted bilateral alveolar-type infiltrates. Cardiomegaly. Dilated ascending thoracic aorta as described Cholelithiasis.
--- NOTE | 2018-04-23 15:14 | CP.PCM.PN ---
Subjective - Date & Time of Evaluation Date of Evaluation: 04/23/18 Time of Evaluation: 10:00 - Subjective Subjective: Patient seen and examined Getting physical therapy Patient is awake and responsive No shortness of breath and cough Afebrile Objective - Vital Signs/Intake and Output Vital Signs (last 24 hours): Temp Pulse Resp BP Pulse Ox 97.8 F 73 18 123/82 100 04/23/18 07:00 04/23/18 12:00 04/23/18 07:00 04/23/18 09:59 04/23/18 07:00 - Medications Medications: Current Medications Acetaminophen (Tylenol 325mg Tab) 650 mg PO Q6 PRN PRN Reason: Fever >100.4 F Acetaminophen (Tylenol 325mg Tab) 650 mg PO Q6 PRN PRN Reason: Pain, moderate (4-7) Amlodipine Besylate (Norvasc) 10 mg PO DAILY [facility] Last Admin: 04/23/18 09:58 Dose: 10 mg Aspirin (Aspirin Chewable) 81 mg PO DAILY [facility] Last Admin: 04/23/18 09:58 Dose: 81 mg Famotidine (Pepcid) 20 mg PO BID [facility] Last Admin: 04/23/18 09:58 Dose: 20 mg Furosemide (Lasix) 40 mg IVP DAILY [facility] Last Admin: 04/23/18 09:59 Dose: 40 mg Guaifenesin (Robitussin) 100 mg PO Q4H PRN PRN Reason: Cough Last Admin: 04/16/18 14:34 Dose: 100 mg Piperacillin Sod/Tazobactam Sod (Zosyn 3.375 Gm Iv Premix) 3.375 gm in 50 mls @ 100 mls/hr IVPB Q8H [facility] PRN Reason: Protocol Last Admin: 04/23/18 13:36 Dose: 100 mls/hr Insulin Human Regular (Novolin R) 0 unit SC ACHS [facility] PRN Reason: Protocol Last Admin: 04/23/18 13:10 Dose: 2 units Losartan Potassium (Cozaar) 100 mg PO DAILY [facility] Last Admin: 04/23/18 09:58 Dose: 100 mg Mupirocin (Bactroban 2% Nasal) 0.25 gm AWILDA BID [facility] Last Admin: 04/23/18 09:58 Dose: 0.25 gm Nystatin (Nystatin Oral Susp) 5 ml PO QID [facility] Last Admin: 04/23/18 13:36 Dose: 5 ml Polyethylene Glycol (Miralax) 17 gm PO DAILY [facility] Last Admin: 04/23/18 09:57 Dose: 17 gm Prednisone (Prednisone Tab) 20 mg PO DAILY [facility] Last Admin: 04/23/18 09:58 Dose: 20 mg Saccharomyces Boulardii (Florastor) 250 mg PO Q12 [facility] Last Admin: 04/23/18 09:58 Dose: 250 mg Spironolactone (Aldactone) 25 mg PO BID [facility] Last Admin: 04/23/18 09:57 Dose: 25 mg - Labs Labs: 04/23/18 08:17 04/23/18 08:17 PT 13.4 SECONDS (9.7-12.2) H 04/11/18 17:04 INR 1.2 04/11/18 17:04 APTT 28 SECONDS (21-34) 04/18/18 05:57 - Head Exam Head Exam: ATRAUMATIC, NORMOCEPHALIC - ENT Exam ENT Exam: Mucous Membranes Moist - Neck Exam Neck Exam: Normal Inspection - Respiratory Exam Respiratory Exam: Clear to Ausculation Bilateral - Cardiovascular Exam Cardiovascular Exam: REGULAR RHYTHM - GI/Abdominal Exam GI & Abdominal Exam: Soft, Normal Bowel Sounds Assessment and Plan (1) Pneumonia Assessment & Plan: Continue antibiotics clinically much improved Taper steroids Continue physical therapy Status: Acute (2) CHF (congestive heart failure) Status: Acute (3) Asthma Status: Acute
[2018-04-24] MEDS: Piperacill/Tazo 3.375gm in Dex 3.375 GM/50 ML BAG IVPB SCH ×3 (05:00→22:02)
[2018-04-24] MEDS: (Novolin R) Insulin Human Regular 100 units/ml vial SC SCH ×4 (08:30→21:55)
--- NOTE | 2018-04-24 08:40 | RAD ---
Date of service: 04/24/2018 PROCEDURE: Right Knee Radiographs. HISTORY: right knee pain COMPARISON: None. FINDINGS: BONES: Osteopenia. Spurring. No fracture appreciated JOINTS: Tricompartmental osteoarthrosis. JOINT EFFUSION: None. OTHER FINDINGS: Extensive atherosclerotic vascular calcification IMPRESSION: No gross fracture appreciated. Osteopenia. Osteoarthrosis. Atherosclerotic vascular disease.
[2018-04-24] MEDS: Mupirocin 2% Ointment (NASAL) NAS SCH ×2 (10:25→17:56)
[2018-04-24] MEDS: POLYETHYLENE GLYCOL 3350 17 GM/Dose PACKET PO SCH (10:28)
[2018-04-24] MEDS: Saccharomyces Boulardi 250 mg Cap PO SCH ×2 (10:28→22:02)
[2018-04-24] MEDS: Nystatin 100,000 Units/ml Oral Susp 5 ml UD PO SCH ×3 (10:28→22:02)
--- NOTE | 2018-04-24 18:16 | CP.PCM.PN ---
Subjective - Date & Time of Evaluation Date of Evaluation: 04/24/18 Time of Evaluation: 18:14 - Subjective Subjective: feels beter no cogh no sob weeke Objective - Vital Signs/Intake and Output Vital Signs (last 24 hours): Temp Pulse Resp BP Pulse Ox 97.4 F L 71 18 103/67 99 04/24/18 16:32 04/24/18 16:32 04/24/18 16:32 04/24/18 16:32 04/24/18 16:32 Intake and Output: 04/24/18 04/24/18 06:59 18:59 Intake Total 350 Output Total 140 Balance 350 -140 - Medications Medications: Current Medications Acetaminophen (Tylenol 325mg Tab) 650 mg PO Q6 PRN PRN Reason: Fever >100.4 F Acetaminophen (Tylenol 325mg Tab) 650 mg PO Q6 PRN PRN Reason: Pain, moderate (4-7) Amlodipine Besylate (Norvasc) 10 mg PO DAILY [facility] Last Admin: 04/24/18 10:29 Dose: 10 mg Aspirin (Aspirin Chewable) 81 mg PO DAILY [facility] Last Admin: 04/24/18 10:29 Dose: 81 mg Famotidine (Pepcid) 20 mg PO BID [facility] Last Admin: 04/24/18 17:56 Dose: 20 mg Furosemide (Lasix) 40 mg IVP DAILY [facility] Last Admin: 04/24/18 10:30 Dose: 40 mg Guaifenesin (Robitussin) 100 mg PO Q4H PRN PRN Reason: Cough Last Admin: 04/16/18 14:34 Dose: 100 mg Piperacillin Sod/Tazobactam Sod (Zosyn 3.375 Gm Iv Premix) 3.375 gm in 50 mls @ 100 mls/hr IVPB Q8H [facility] PRN Reason: Protocol Last Admin: 04/24/18 15:00 Dose: 100 mls/hr Insulin Human Regular (Novolin R) 0 unit SC ACHS [facility] PRN Reason: Protocol Last Admin: 04/24/18 17:28 Dose: 3 units Losartan Potassium (Cozaar) 100 mg PO DAILY [facility] Last Admin: 04/24/18 10:30 Dose: 100 mg Mupirocin (Bactroban 2% Nasal) 0.25 gm AWILDA BID [facility] Last Admin: 04/24/18 17:56 Dose: 0.25 gm Nystatin (Nystatin Oral Susp) 5 ml PO QID [facility] Last Admin: 04/24/18 17:56 Dose: 5 ml Polyethylene Glycol (Miralax) 17 gm PO DAILY [facility] Last Admin: 04/24/18 10:28 Dose: 17 gm Prednisone (Prednisone Tab) 10 mg PO DAILY [facility] Last Admin: 04/24/18 10:29 Dose: 10 mg Saccharomyces Boulardii (Florastor) 250 mg PO Q12 [facility] Last Admin: 04/24/18 10:28 Dose: 250 mg Spironolactone (Aldactone) 25 mg PO BID [facility] Last Admin: 04/24/18 17:56 Dose: 25 mg - Labs Labs: 04/23/18 08:17 04/23/18 08:17 PT 13.4 SECONDS (9.7-12.2) H 04/11/18 17:04 INR 1.2 04/11/18 17:04 APTT 28 SECONDS (21-34) 04/18/18 05:57 - Constitutional Appears: Non-toxic - Head Exam Head Exam: NORMAL INSPECTION - Eye Exam Eye Exam: Normal appearance Pupil Exam: NORMAL ACCOMODATION - ENT Exam ENT Exam: Mucous Membranes Moist - Neck Exam Neck Exam: Normal Inspection - Respiratory Exam Respiratory Exam: Decreased Breath Sounds, Clear to Ausculation Bilateral - Cardiovascular Exam Cardiovascular Exam: REGULAR RHYTHM - GI/Abdominal Exam GI & Abdominal Exam: Normal Bowel Sounds - Back Exam Back Exam: NORMAL INSPECTION - Neurological Exam Neurological Exam: Alert, Awake - Psychiatric Exam Psychiatric exam: Normal Affect - Skin Skin Exam: Normal Color Assessment and Plan - Assessment and Plan (Free Text) Assessment: generalised weekness s/p pnumonia chf Plan: cont med arrange for chuck
[2018-04-24 19:23] LABS: ABG ALLEN TEST POS; ARTERIAL BLOOD GAS HCO3 27.9 mmol/L (21-28); ARTERIAL BLOOD GAS HEMOGLOBIN 16.3 g/dL (11.7-17.4); ARTERIAL BLOOD GAS O2 SAT 96.7 % (95-98); ARTERIAL BLOOD GAS PCO2 38 mm/Hg (35-45); ARTERIAL BLOOD GAS PH 7.47 (7.35-7.45); ARTERIAL BLOOD GAS PO2 77 mm/Hg (80-100); ARTERIAL BLOOD GAS TCO2 28.9 mmol/L (22-28)
[2018-04-25 01:04] VITALS: RESP 20
[2018-04-25] MEDS: Piperacill/Tazo 3.375gm in Dex 3.375 GM/50 ML BAG IVPB SCH ×2 (05:28→14:20)
[2018-04-25] MEDS: (Novolin R) Insulin Human Regular 100 units/ml vial SC SCH ×4 (07:06→21:59)
[2018-04-25 07:42] LABS: BASO # 0.1 K/uL (0.0-0.2); BASO % 0.5 % (0.0-2.0); EOS # 0.4 K/uL (0.0-0.7); EOS % 2.4 % (0.0-4.0); HEMOGLOBIN 16.1 g/dL (12.0-18.0); LYMPH # 1.7 K/uL (1.0-4.3); LYMPH % 11.6 % (20.0-40.0); MEAN CELL VOLUME 88.2 fL (80.0-94.0); MEAN CORPUSCULAR HEMOGLOBIN 29.9 pg (27.0-31.0); MEAN CORPUSCULAR HGB CONC 33.9 g/dL (33.0-37.0); MEAN PLATELET VOLUME 9.3 fL (7.2-11.7); MONO % 6.8 % (0.0-10.0); NEUT # 11.5 K/uL (1.8-7.0); NEUT % 78.7 % (50.0-75.0); RBC 5.39 Mil/uL (4.40-5.90); WHITE BLOOD COUNT 14.6 K/uL (4.8-10.8)
[2018-04-25] MEDS: Mupirocin 2% Ointment (NASAL) NAS SCH ×2 (10:13→17:48)
[2018-04-25] MEDS: POLYETHYLENE GLYCOL 3350 17 GM/Dose PACKET PO SCH (10:15)
[2018-04-25] MEDS: Saccharomyces Boulardi 250 mg Cap PO SCH ×2 (10:16→21:58)
[2018-04-25] MEDS: Nystatin 100,000 Units/ml Oral Susp 5 ml UD PO SCH ×4 (10:17→21:58)
--- NOTE | 2018-04-25 11:14 | CP.PCM.PN ---
Subjective - Date & Time of Evaluation Date of Evaluation: 04/25/18 Time of Evaluation: 11:14 - Subjective Subjective: pt feels good did walk with therapy oxysat was good breathing beter Objective - Vital Signs/Intake and Output Vital Signs (last 24 hours): Temp Pulse Resp BP Pulse Ox 98.1 F 70 20 130/76 98 04/25/18 08:05 04/25/18 10:12 04/25/18 08:05 04/25/18 10:14 04/25/18 08:05 Intake and Output: 04/25/18 04/25/18 06:59 18:59 Intake Total 550 Output Total 100 Balance 450 - Medications Medications: Current Medications Acetaminophen (Tylenol 325mg Tab) 650 mg PO Q6 PRN PRN Reason: Fever >100.4 F Acetaminophen (Tylenol 325mg Tab) 650 mg PO Q6 PRN PRN Reason: Pain, moderate (4-7) Amlodipine Besylate (Norvasc) 10 mg PO DAILY [facility] Last Admin: 04/25/18 10:16 Dose: 10 mg Aspirin (Aspirin Chewable) 81 mg PO DAILY [facility] Last Admin: 04/25/18 10:16 Dose: 81 mg Famotidine (Pepcid) 20 mg PO BID [facility] Last Admin: 04/25/18 10:16 Dose: 20 mg Guaifenesin (Robitussin) 100 mg PO Q4H PRN PRN Reason: Cough Last Admin: 04/16/18 14:34 Dose: 100 mg Piperacillin Sod/Tazobactam Sod (Zosyn 3.375 Gm Iv Premix) 3.375 gm in 50 mls @ 100 mls/hr IVPB Q8H [facility] PRN Reason: Protocol Last Admin: 04/25/18 05:28 Dose: 100 mls/hr Insulin Human Regular (Novolin R) 0 unit SC ACHS [facility] PRN Reason: Protocol Last Admin: 04/25/18 07:06 Dose: Not Given Losartan Potassium (Cozaar) 100 mg PO DAILY [facility] Last Admin: 04/25/18 10:17 Dose: 100 mg Mupirocin (Bactroban 2% Nasal) 0.25 gm AWILDA BID [facility] Last Admin: 04/25/18 10:13 Dose: 0.25 gm Nystatin (Nystatin Oral Susp) 5 ml PO QID [facility] Last Admin: 04/25/18 10:17 Dose: 5 ml Polyethylene Glycol (Miralax) 17 gm PO DAILY [facility] Last Admin: 04/25/18 10:15 Dose: 17 gm Prednisone (Prednisone Tab) 10 mg PO DAILY [facility] Last Admin: 04/25/18 10:16 Dose: 10 mg Saccharomyces Boulardii (Florastor) 250 mg PO Q12 [facility] Last Admin: 04/25/18 10:16 Dose: 250 mg Spironolactone (Aldactone) 25 mg PO BID [facility] Last Admin: 04/25/18 10:16 Dose: 25 mg - Labs Labs: 04/25/18 07:27 04/25/18 07:27 PT 13.4 SECONDS (9.7-12.2) H 04/11/18 17:04 INR 1.2 04/11/18 17:04 APTT 28 SECONDS (21-34) 04/18/18 05:57 - Constitutional Appears: Non-toxic - Head Exam Head Exam: NORMAL INSPECTION - Eye Exam Eye Exam: Normal appearance Pupil Exam: NORMAL ACCOMODATION - ENT Exam ENT Exam: Normal Exam - Neck Exam Neck Exam: Normal Inspection - Respiratory Exam Respiratory Exam: Clear to Ausculation Bilateral - Cardiovascular Exam Cardiovascular Exam: REGULAR RHYTHM - GI/Abdominal Exam GI & Abdominal Exam: Normal Bowel Sounds - Rectal Exam Rectal Exam: NORMAL INSPECTION - Exam Exam: NORMAL INSPECTION - Extremities Exam Extremities Exam: Normal Capillary Refill - Back Exam Back Exam: NORMAL INSPECTION - Neurological Exam Neurological Exam: Normal Gait, Oriented x3 - Psychiatric Exam Psychiatric exam: Normal Affect - Skin Skin Exam: Normal Color Assessment and Plan - Assessment and Plan (Free Text) Assessment: s/p pnumonia chf improved unstable gaite Plan: will discharge home with home servise and pt at home
--- NOTE | 2018-04-25 12:03 | CP.PCM.PN ---
Subjective - Date & Time of Evaluation Date of Evaluation: 04/25/18 Time of Evaluation: 08:20 - Subjective Subjective: patient seen and examined Patient is awake with periods of confusion For shortness of breath ABG noted with no CO2 retention Afebrile Continue present treatment Checked saturation during exertion Objective - Vital Signs/Intake and Output Vital Signs (last 24 hours): Temp Pulse Resp BP Pulse Ox 98.1 F 70 20 130/76 98 04/25/18 08:05 04/25/18 10:12 04/25/18 08:05 04/25/18 10:14 04/25/18 08:05 Intake and Output: 04/25/18 04/25/18 06:59 18:59 Intake Total 550 Output Total 100 Balance 450 - Medications Medications: Current Medications Acetaminophen (Tylenol 325mg Tab) 650 mg PO Q6 PRN PRN Reason: Fever >100.4 F Acetaminophen (Tylenol 325mg Tab) 650 mg PO Q6 PRN PRN Reason: Pain, moderate (4-7) Amlodipine Besylate (Norvasc) 10 mg PO DAILY [facility] Last Admin: 04/25/18 10:16 Dose: 10 mg Aspirin (Aspirin Chewable) 81 mg PO DAILY [facility] Last Admin: 04/25/18 10:16 Dose: 81 mg Famotidine (Pepcid) 20 mg PO BID [facility] Last Admin: 04/25/18 10:16 Dose: 20 mg Guaifenesin (Robitussin) 100 mg PO Q4H PRN PRN Reason: Cough Last Admin: 04/16/18 14:34 Dose: 100 mg Piperacillin Sod/Tazobactam Sod (Zosyn 3.375 Gm Iv Premix) 3.375 gm in 50 mls @ 100 mls/hr IVPB Q8H [facility] PRN Reason: Protocol Last Admin: 04/25/18 05:28 Dose: 100 mls/hr Insulin Human Regular (Novolin R) 0 unit SC ACHS [facility] PRN Reason: Protocol Last Admin: 04/25/18 07:06 Dose: Not Given Losartan Potassium (Cozaar) 100 mg PO DAILY [facility] Last Admin: 04/25/18 10:17 Dose: 100 mg Mupirocin (Bactroban 2% Nasal) 0.25 gm AWILDA BID [facility] Last Admin: 04/25/18 10:13 Dose: 0.25 gm Nystatin (Nystatin Oral Susp) 5 ml PO QID [facility] Last Admin: 04/25/18 10:17 Dose: 5 ml Polyethylene Glycol (Miralax) 17 gm PO DAILY [facility] Last Admin: 04/25/18 10:15 Dose: 17 gm Prednisone (Prednisone Tab) 10 mg PO DAILY [facility] Last Admin: 04/25/18 10:16 Dose: 10 mg Saccharomyces Boulardii (Florastor) 250 mg PO Q12 [facility] Last Admin: 04/25/18 10:16 Dose: 250 mg Spironolactone (Aldactone) 25 mg PO BID [facility] Last Admin: 04/25/18 10:16 Dose: 25 mg - Labs Labs: 04/25/18 07:27 04/25/18 07:27 PT 13.4 SECONDS (9.7-12.2) H 04/11/18 17:04 INR 1.2 04/11/18 17:04 APTT 28 SECONDS (21-34) 04/18/18 05:57 Assessment and Plan (1) Pneumonia Status: Acute (2) CHF (congestive heart failure) Status: Acute (3) Asthma Status: Acute
--- NOTE | 2018-04-25 18:06 | CP.PCM.PN ---
Subjective - Date & Time of Evaluation Date of Evaluation: 04/25/18 Time of Evaluation: 08:00 - Subjective Subjective: no fever awake alert much less confused breathing improved CT chest noted Objective - Vital Signs/Intake and Output Vital Signs (last 24 hours): Temp Pulse Resp BP Pulse Ox 97.6 F 78 20 122/77 98 04/25/18 15:30 04/25/18 15:30 04/25/18 15:30 04/25/18 15:30 04/25/18 15:30 Intake and Output: 04/25/18 04/25/18 06:59 18:59 Intake Total 550 Output Total 100 Balance 450 - Medications Medications: Current Medications Acetaminophen (Tylenol 325mg Tab) 650 mg PO Q6 PRN PRN Reason: Fever >100.4 F Acetaminophen (Tylenol 325mg Tab) 650 mg PO Q6 PRN PRN Reason: Pain, moderate (4-7) Amlodipine Besylate (Norvasc) 10 mg PO DAILY [facility] Last Admin: 04/25/18 10:16 Dose: 10 mg Aspirin (Aspirin Chewable) 81 mg PO DAILY [facility] Last Admin: 04/25/18 10:16 Dose: 81 mg Famotidine (Pepcid) 20 mg PO BID [facility] Last Admin: 04/25/18 17:49 Dose: 20 mg Guaifenesin (Robitussin) 100 mg PO Q4H PRN PRN Reason: Cough Last Admin: 04/16/18 14:34 Dose: 100 mg Piperacillin Sod/Tazobactam Sod (Zosyn 3.375 Gm Iv Premix) 3.375 gm in 50 mls @ 100 mls/hr IVPB Q8H [facility] PRN Reason: Protocol Last Admin: 04/25/18 14:20 Dose: 100 mls/hr Insulin Human Regular (Novolin R) 0 unit SC ACHS [facility] PRN Reason: Protocol Last Admin: 04/25/18 17:25 Dose: 1 units Losartan Potassium (Cozaar) 100 mg PO DAILY [facility] Last Admin: 04/25/18 10:17 Dose: 100 mg Mupirocin (Bactroban 2% Nasal) 0.25 gm AWILDA BID [facility] Last Admin: 04/25/18 17:48 Dose: 0.25 gm Nystatin (Nystatin Oral Susp) 5 ml PO QID [facility] Last Admin: 08/17/18 17:48 Dose: 5 ml Polyethylene Glycol (Miralax) 17 gm PO DAILY [facility] Last Admin: 04/25/18 10:15 Dose: 17 gm Prednisone (Prednisone Tab) 10 mg PO DAILY [facility] Last Admin: 04/25/18 10:16 Dose: 10 mg Saccharomyces Boulardii (Florastor) 250 mg PO Q12 [facility] Last Admin: 04/25/18 10:16 Dose: 250 mg Spironolactone (Aldactone) 25 mg PO BID [facility] Last Admin: 04/25/18 17:48 Dose: 25 mg - Labs Labs: 04/25/18 07:27 04/25/18 07:27 PT 13.4 SECONDS (9.7-12.2) H 04/11/18 17:04 INR 1.2 04/11/18 17:04 APTT 28 SECONDS (21-34) 04/18/18 05:57 - Constitutional Appears: Non-toxic, Chronically Ill - Head Exam Head Exam: NORMOCEPHALIC - Eye Exam Eye Exam: PERRL - ENT Exam ENT Exam: Mucous Membranes Dry - Neck Exam Neck Exam: absent: Lymphadenopathy - Respiratory Exam Respiratory Exam: Decreased Breath Sounds - Cardiovascular Exam Cardiovascular Exam: REGULAR RHYTHM - GI/Abdominal Exam GI & Abdominal Exam: Distended - Rectal Exam Rectal Exam: Deferred - Exam Exam: NORMAL INSPECTION Assessment and Plan (1) Influenza Status: Acute (2) Pneumonia Status: Acute (3) Sepsis Status: Acute (4) Bradycardia Status: Acute - Assessment and Plan (Free Text) Assessment: d/c on po antibiotics
[2018-04-25] MEDS: Amoxicillin-Clav 875-125 mg Tab PO SCH (21:58)
[2018-04-26] MEDS: Amoxicillin-Clav 875-125 mg Tab PO SCH ×2 (05:42→17:37)
[2018-04-26] MEDS: (Novolin R) Insulin Human Regular 100 units/ml vial SC SCH ×4 (08:38→22:26)
[2018-04-26] MEDS: Saccharomyces Boulardi 250 mg Cap PO SCH ×2 (10:13→21:59)
[2018-04-26] MEDS: POLYETHYLENE GLYCOL 3350 17 GM/Dose PACKET PO SCH (10:13)
[2018-04-26] MEDS: Nystatin 100,000 Units/ml Oral Susp 5 ml UD PO SCH ×4 (10:13→21:59)
[2018-04-26] MEDS: Mupirocin 2% Ointment (NASAL) NAS SCH ×2 (10:14→17:19)
--- NOTE | 2018-04-26 14:41 | CP.PCM.PN ---
Subjective - Date & Time of Evaluation Date of Evaluation: 04/26/18 Time of Evaluation: 14:39 - Subjective Subjective: weeke unbalanced wbc still high Objective - Vital Signs/Intake and Output Vital Signs (last 24 hours): Temp Pulse Resp BP Pulse Ox 98.0 F 70 20 103/77 98 04/26/18 07:00 04/26/18 10:15 04/26/18 07:00 04/26/18 10:15 04/26/18 07:00 Intake and Output: 04/26/18 04/26/18 06:59 18:59 Output Total 250 Balance -250 - Medications Medications: Current Medications Acetaminophen (Tylenol 325mg Tab) 650 mg PO Q6 PRN PRN Reason: Fever >100.4 F Acetaminophen (Tylenol 325mg Tab) 650 mg PO Q6 PRN PRN Reason: Pain, moderate (4-7) Amlodipine Besylate (Norvasc) 10 mg PO DAILY [facility] Last Admin: 04/26/18 10:15 Dose: Not Given Amoxicillin/Clavulanate Potassium (Augmentin 875 Mg-125 Mg Tab) 1 tab PO Q12H [facility] PRN Reason: Protocol Last Admin: 04/26/18 05:42 Dose: 1 tab Aspirin (Aspirin Chewable) 81 mg PO DAILY [facility] Last Admin: 04/26/18 10:13 Dose: 81 mg Famotidine (Pepcid) 20 mg PO BID [facility] Last Admin: 04/26/18 10:13 Dose: 20 mg Guaifenesin (Robitussin) 100 mg PO Q4H PRN PRN Reason: Cough Last Admin: 04/16/18 14:34 Dose: 100 mg Insulin Human Regular (Novolin R) 0 unit SC ACHS [facility] PRN Reason: Protocol Last Admin: 04/26/18 13:30 Dose: 3 units Losartan Potassium (Cozaar) 100 mg PO DAILY [facility] Last Admin: 04/26/18 10:15 Dose: Not Given Mupirocin (Bactroban 2% Nasal) 0.25 gm AWILDA BID [facility] Last Admin: 04/26/18 10:14 Dose: 0.25 gm Nystatin (Nystatin Oral Susp) 5 ml PO QID [facility] Last Admin: 04/26/18 13:30 Dose: 5 ml Polyethylene Glycol (Miralax) 17 gm PO DAILY [facility] Last Admin: 08/18/18 10:13 Dose: 17 gm Prednisone (Prednisone Tab) 10 mg PO DAILY [facility] Last Admin: 04/26/18 10:13 Dose: 10 mg Saccharomyces Boulardii (Florastor) 250 mg PO Q12 [facility] Last Admin: 04/26/18 10:13 Dose: 250 mg Spironolactone (Aldactone) 25 mg PO BID [facility] Last Admin: 04/26/18 10:13 Dose: 25 mg - Labs Labs: 04/25/18 07:27 04/25/18 07:27 PT 13.4 SECONDS (9.7-12.2) H 04/11/18 17:04 INR 1.2 04/11/18 17:04 APTT 28 SECONDS (21-34) 04/18/18 05:57 - Constitutional Appears: Non-toxic - Head Exam Head Exam: NORMAL INSPECTION - Eye Exam Eye Exam: Normal appearance Pupil Exam: NORMAL ACCOMODATION - ENT Exam ENT Exam: Mucous Membranes Moist - Neck Exam Neck Exam: Normal Inspection - Respiratory Exam Respiratory Exam: NORMAL BREATHING PATTERN - Cardiovascular Exam Cardiovascular Exam: REGULAR RHYTHM - GI/Abdominal Exam GI & Abdominal Exam: Normal Bowel Sounds - Rectal Exam Rectal Exam: Deferred - Exam Exam: NORMAL INSPECTION - Extremities Exam Extremities Exam: Normal Inspection - Back Exam Back Exam: NORMAL INSPECTION - Neurological Exam Neurological Exam: Awake - Psychiatric Exam Psychiatric exam: Normal Affect - Skin Skin Exam: Normal Color Assessment and Plan - Assessment and Plan (Free Text) Assessment: s.p ac pnumonia chf generalised weekness Plan: cont curent treatment
--- NOTE | 2018-04-26 20:48 | CP.PCM.PN ---
Subjective - Date & Time of Evaluation Date of Evaluation: 04/26/18 Time of Evaluation: 16:30 - Subjective Subjective: patient seen and examined No shortness of breath Patient is off BiPAP Patient is awake and responsive Wants to go home Objective - Vital Signs/Intake and Output Vital Signs (last 24 hours): Temp Pulse Resp BP Pulse Ox 97.3 F L 70 20 106/68 99 04/26/18 15:00 04/26/18 15:00 04/26/18 15:00 04/26/18 15:00 04/26/18 15:00 - Medications Medications: Current Medications Acetaminophen (Tylenol 325mg Tab) 650 mg PO Q6 PRN PRN Reason: Fever >100.4 F Acetaminophen (Tylenol 325mg Tab) 650 mg PO Q6 PRN PRN Reason: Pain, moderate (4-7) Amlodipine Besylate (Norvasc) 10 mg PO DAILY [facility] Last Admin: 04/26/18 10:15 Dose: Not Given Amoxicillin/Clavulanate Potassium (Augmentin 875 Mg-125 Mg Tab) 1 tab PO Q12H [facility] PRN Reason: Protocol Last Admin: 04/26/18 17:37 Dose: 1 tab Aspirin (Aspirin Chewable) 81 mg PO DAILY [facility] Last Admin: 04/26/18 10:13 Dose: 81 mg Famotidine (Pepcid) 20 mg PO BID [facility] Last Admin: 04/26/18 17:19 Dose: 20 mg Guaifenesin (Robitussin) 100 mg PO Q4H PRN PRN Reason: Cough Last Admin: 04/16/18 14:34 Dose: 100 mg Insulin Human Regular (Novolin R) 0 unit SC ACHS [facility] PRN Reason: Protocol Last Admin: 04/26/18 17:17 Dose: 4 units Losartan Potassium (Cozaar) 100 mg PO DAILY [facility] Last Admin: 04/26/18 10:15 Dose: Not Given Mupirocin (Bactroban 2% Nasal) 0.25 gm AWILDA BID [facility] Last Admin: 04/26/18 17:19 Dose: 0.25 gm Nystatin (Nystatin Oral Susp) 5 ml PO QID [facility] Last Admin: 04/26/18 17:19 Dose: 5 ml Polyethylene Glycol (Miralax) 17 gm PO DAILY [facility] Last Admin: 04/26/18 10:13 Dose: 17 gm Prednisone (Prednisone Tab) 10 mg PO DAILY [facility] Last Admin: 04/26/18 10:13 Dose: 10 mg Saccharomyces Boulardii (Florastor) 250 mg PO Q12 [facility] Last Admin: 04/26/18 10:13 Dose: 250 mg Spironolactone (Aldactone) 25 mg PO BID [facility] Last Admin: 04/26/18 17:20 Dose: 25 mg - Labs Labs: 04/25/18 07:27 04/25/18 07:27 PT 13.4 SECONDS (9.7-12.2) H 04/11/18 17:04 INR 1.2 04/11/18 17:04 APTT 28 SECONDS (21-34) 04/18/18 05:57 - Head Exam Head Exam: ATRAUMATIC, NORMOCEPHALIC - ENT Exam ENT Exam: Mucous Membranes Moist - Neck Exam Neck Exam: Normal Inspection - Respiratory Exam Respiratory Exam: Decreased Breath Sounds - GI/Abdominal Exam GI & Abdominal Exam: Soft, Normal Bowel Sounds - Extremities Exam Extremities Exam: Full ROM Assessment and Plan (1) Pneumonia Assessment & Plan: prednisone in tapering nose Continue nebulizer treatment Does not need home oxygen Status: Acute (2) CHF (congestive heart failure) Status: Acute (3) Asthma Status: Acute
[2018-04-27] MEDS: Albuterol-Ipratrop 3 mg / 0.5 (3 ml) UD INH SCH ×4 (01:45→19:34)
[2018-04-27] MEDS: Amoxicillin-Clav 875-125 mg Tab PO SCH ×2 (05:51→17:20)
[2018-04-27] MEDS: (Novolin R) Insulin Human Regular 100 units/ml vial SC SCH ×4 (07:57→21:58)
--- NOTE | 2018-04-27 09:54 | CP.PCM.PN ---
Subjective - Date & Time of Evaluation Date of Evaluation: 04/27/18 Time of Evaluation: 09:52 - Subjective Subjective: feels weeke unsteady gaite no cough Objective - Vital Signs/Intake and Output Vital Signs (last 24 hours): Temp Pulse Resp BP Pulse Ox 97.2 F L 73 20 107/73 99 04/27/18 07:57 04/27/18 07:57 04/27/18 07:57 04/27/18 07:57 04/27/18 07:57 Intake and Output: 04/27/18 04/27/18 06:59 18:59 Intake Total 480 Output Total 300 Balance 180 - Medications Medications: Current Medications Acetaminophen (Tylenol 325mg Tab) 650 mg PO Q6 PRN PRN Reason: Fever >100.4 F Acetaminophen (Tylenol 325mg Tab) 650 mg PO Q6 PRN PRN Reason: Pain, moderate (4-7) Albuterol/Ipratropium (Duoneb 3 Mg/0.5 Mg (3 Ml) Ud) 3 ml INH RQ6 [facility] Last Admin: 04/27/18 09:35 Dose: 3 ml Amlodipine Besylate (Norvasc) 10 mg PO DAILY [facility] Last Admin: 04/26/18 10:15 Dose: Not Given Amoxicillin/Clavulanate Potassium (Augmentin 875 Mg-125 Mg Tab) 1 tab PO Q12H [facility] PRN Reason: Protocol Last Admin: 04/27/18 05:51 Dose: 1 tab Aspirin (Aspirin Chewable) 81 mg PO DAILY [facility] Last Admin: 04/26/18 10:13 Dose: 81 mg Famotidine (Pepcid) 20 mg PO BID [facility] Last Admin: 04/26/18 17:19 Dose: 20 mg Guaifenesin (Robitussin) 100 mg PO Q4H PRN PRN Reason: Cough Last Admin: 04/16/18 14:34 Dose: 100 mg Insulin Human Regular (Novolin R) 0 unit SC ACHS [facility] PRN Reason: Protocol Last Admin: 04/27/18 07:57 Dose: Not Given Losartan Potassium (Cozaar) 100 mg PO DAILY [facility] Last Admin: 04/26/18 10:15 Dose: Not Given Mupirocin (Bactroban 2% Nasal) 0.25 gm AWILDA BID [facility] Last Admin: 04/26/18 17:19 Dose: 0.25 gm Nystatin (Nystatin Oral Susp) 5 ml PO QID [facility] Last Admin: 04/26/18 21:59 Dose: 5 ml Polyethylene Glycol (Miralax) 17 gm PO DAILY [facility] Last Admin: 04/26/18 10:13 Dose: 17 gm Prednisone (Prednisone Tab) 10 mg PO DAILY [facility] Last Admin: 04/26/18 10:13 Dose: 10 mg Saccharomyces Boulardii (Florastor) 250 mg PO Q12 [facility] Last Admin: 04/26/18 21:59 Dose: 250 mg Spironolactone (Aldactone) 25 mg PO BID [facility] Last Admin: 04/26/18 17:20 Dose: 25 mg - Labs Labs: 04/25/18 07:27 04/25/18 07:27 PT 13.4 SECONDS (9.7-12.2) H 04/11/18 17:04 INR 1.2 04/11/18 17:04 APTT 28 SECONDS (21-34) 04/18/18 05:57 - Constitutional Appears: Non-toxic - Eye Exam Eye Exam: Normal appearance Pupil Exam: NORMAL ACCOMODATION - ENT Exam ENT Exam: Normal Exam - Neck Exam Neck Exam: Normal Inspection - Respiratory Exam Respiratory Exam: NORMAL BREATHING PATTERN - Cardiovascular Exam Cardiovascular Exam: REGULAR RHYTHM - GI/Abdominal Exam GI & Abdominal Exam: Normal Bowel Sounds - Extremities Exam Extremities Exam: Normal Inspection - Back Exam Back Exam: NORMAL INSPECTION - Neurological Exam Neurological Exam: Abnormal Gait, Alert, Awake, Oriented x3 - Psychiatric Exam Psychiatric exam: Normal Mood - Skin Skin Exam: Normal Color Assessment and Plan - Assessment and Plan (Free Text) Assessment: unsteady gaite generalised weekness s/p pnumonia chf Plan: cont med pt amd awite chuck
[2018-04-27] MEDS: Nystatin 100,000 Units/ml Oral Susp 5 ml UD PO SCH ×4 (11:21→21:57)
[2018-04-27] MEDS: POLYETHYLENE GLYCOL 3350 17 GM/Dose PACKET PO SCH (11:22)
[2018-04-27] MEDS: Saccharomyces Boulardi 250 mg Cap PO SCH ×2 (11:22→21:57)
[2018-04-27] MEDS: Mupirocin 2% Ointment (NASAL) NAS SCH ×2 (11:23→17:20)
--- NOTE | 2018-04-27 15:06 | CP.PCM.PN ---
Subjective - Date & Time of Evaluation Date of Evaluation: 04/27/18 Time of Evaluation: 09:00 - Subjective Subjective: improving slowly rx in proigress Objective - Vital Signs/Intake and Output Vital Signs (last 24 hours): Temp Pulse Resp BP Pulse Ox 97.2 F L 69 20 118/79 98 04/27/18 07:57 04/27/18 12:51 04/27/18 12:51 04/27/18 11:21 04/27/18 12:51 Intake and Output: 04/27/18 04/27/18 06:59 18:59 Intake Total 480 Output Total 300 Balance 180 - Medications Medications: Current Medications Acetaminophen (Tylenol 325mg Tab) 650 mg PO Q6 PRN PRN Reason: Fever >100.4 F Acetaminophen (Tylenol 325mg Tab) 650 mg PO Q6 PRN PRN Reason: Pain, moderate (4-7) Albuterol/Ipratropium (Duoneb 3 Mg/0.5 Mg (3 Ml) Ud) 3 ml INH RQ6 [facility] Last Admin: 04/27/18 13:22 Dose: 3 ml Amlodipine Besylate (Norvasc) 10 mg PO DAILY [facility] Last Admin: 04/27/18 11:22 Dose: 10 mg Amoxicillin/Clavulanate Potassium (Augmentin 875 Mg-125 Mg Tab) 1 tab PO Q12H [facility] PRN Reason: Protocol Last Admin: 04/27/18 05:51 Dose: 1 tab Aspirin (Aspirin Chewable) 81 mg PO DAILY [facility] Last Admin: 04/27/18 11:22 Dose: 81 mg Famotidine (Pepcid) 20 mg PO BID [facility] Last Admin: 04/27/18 11:22 Dose: 20 mg Guaifenesin (Robitussin) 100 mg PO Q4H PRN PRN Reason: Cough Last Admin: 04/16/18 14:34 Dose: 100 mg Insulin Human Regular (Novolin R) 0 unit SC ACHS [facility] PRN Reason: Protocol Last Admin: 04/27/18 12:51 Dose: 2 units Losartan Potassium (Cozaar) 100 mg PO DAILY [facility] Last Admin: 04/27/18 11:23 Dose: Not Given Mupirocin (Bactroban 2% Nasal) 0.25 gm AWILDA BID [facility] Last Admin: 04/27/18 11:23 Dose: 0.25 gm Nystatin (Nystatin Oral Susp) 5 ml PO QID [facility] Last Admin: 04/27/18 14:55 Dose: 5 ml Polyethylene Glycol (Miralax) 17 gm PO DAILY [facility] Last Admin: 04/27/18 11:22 Dose: 17 gm Prednisone (Prednisone Tab) 10 mg PO DAILY [facility] Last Admin: 04/27/18 11:22 Dose: 10 mg Saccharomyces Boulardii (Florastor) 250 mg PO Q12 [facility] Last Admin: 04/27/18 11:22 Dose: 250 mg Spironolactone (Aldactone) 25 mg PO BID [facility] Last Admin: 04/27/18 11:22 Dose: 25 mg - Labs Labs: 04/25/18 07:27 04/25/18 07:27 PT 13.4 SECONDS (9.7-12.2) H 04/11/18 17:04 INR 1.2 04/11/18 17:04 APTT 28 SECONDS (21-34) 04/18/18 05:57 - Constitutional Appears: Non-toxic, Chronically Ill - Head Exam Head Exam: NORMOCEPHALIC - Eye Exam Eye Exam: PERRL - ENT Exam ENT Exam: Mucous Membranes Dry - Neck Exam Neck Exam: absent: Lymphadenopathy - Respiratory Exam Respiratory Exam: Decreased Breath Sounds - Cardiovascular Exam Cardiovascular Exam: REGULAR RHYTHM - GI/Abdominal Exam GI & Abdominal Exam: Distended, Soft Assessment and Plan (1) Influenza Status: Acute (2) Pneumonia Status: Acute (3) Sepsis Status: Acute (4) Bradycardia Status: Acute
--- NOTE | 2018-04-27 20:19 | CP.PCM.PN ---
Subjective - Date & Time of Evaluation Date of Evaluation: 04/27/18 Time of Evaluation: 20:18 - Subjective Subjective: Pulmonary follow up, Covering Dr Sutherland The patient was Seen/interviewed and examined by me at the bedside, Medical records reviewed and Management issues were discussed and formulated with the house staff. Events reviewed Patient is awake and responsive Comfortable, NAD No shortness of breath and cough Afebrile Objective - Vital Signs/Intake and Output Vital Signs (last 24 hours): Temp Pulse Resp BP Pulse Ox 97.4 F L 70 20 131/85 94 L 04/27/18 16:54 04/27/18 16:54 04/27/18 16:54 04/27/18 16:54 04/27/18 16:54 - Medications Medications: Current Medications Acetaminophen (Tylenol 325mg Tab) 650 mg PO Q6 PRN PRN Reason: Fever >100.4 F Albuterol/Ipratropium (Duoneb 3 Mg/0.5 Mg (3 Ml) Ud) 3 ml INH RQ6 [facility] Last Admin: 04/27/18 19:34 Dose: 3 ml Amlodipine Besylate (Norvasc) 10 mg PO DAILY [facility] Last Admin: 04/27/18 11:22 Dose: 10 mg Amoxicillin/Clavulanate Potassium (Augmentin 875 Mg-125 Mg Tab) 1 tab PO Q12H [facility] PRN Reason: Protocol Last Admin: 04/27/18 17:20 Dose: 1 tab Aspirin (Aspirin Chewable) 81 mg PO DAILY [facility] Last Admin: 04/27/18 11:22 Dose: 81 mg Famotidine (Pepcid) 20 mg PO BID [facility] Last Admin: 04/27/18 17:20 Dose: 20 mg Insulin Human Regular (Novolin R) 0 unit SC ACHS [facility] PRN Reason: Protocol Last Admin: 04/27/18 17:20 Dose: 1 units Losartan Potassium (Cozaar) 100 mg PO DAILY [facility] Last Admin: 04/27/18 11:23 Dose: Not Given Mupirocin (Bactroban 2% Nasal) 0.25 gm AWILDA BID [facility] Last Admin: 04/27/18 17:20 Dose: 0.25 gm Nystatin (Nystatin Oral Susp) 5 ml PO QID [facility] Last Admin: 04/27/18 17:20 Dose: 5 ml Polyethylene Glycol (Miralax) 17 gm PO DAILY [facility] Last Admin: 04/27/18 11:22 Dose: 17 gm Prednisone (Prednisone Tab) 10 mg PO DAILY [facility] Last Admin: 04/27/18 11:22 Dose: 10 mg Saccharomyces Boulardii (Florastor) 250 mg PO Q12 [facility] Last Admin: 04/27/18 11:22 Dose: 250 mg Spironolactone (Aldactone) 25 mg PO BID [facility] Last Admin: 04/27/18 17:20 Dose: 25 mg - Labs Labs: 04/25/18 07:27 04/25/18 07:27 PT 13.4 SECONDS (9.7-12.2) H 04/11/18 17:04 INR 1.2 04/11/18 17:04 APTT 28 SECONDS (21-34) 04/18/18 05:57 - Constitutional Appears: Well, Non-toxic - Head Exam Head Exam: ATRAUMATIC, NORMAL INSPECTION - Eye Exam Eye Exam: EOMI - ENT Exam ENT Exam: Mucous Membranes Moist - Neck Exam Neck Exam: Full ROM, Normal Inspection. absent: Tenderness, Thyromegaly - Respiratory Exam Respiratory Exam: Clear to Ausculation Bilateral, NORMAL BREATHING PATTERN. absent: Chest Wall Tenderness, Rales, Rhonchi, Wheezes, Respiratory Distress - Cardiovascular Exam Cardiovascular Exam: REGULAR RHYTHM, RRR, +S1, +S2. absent: JVD - Extremities Exam Extremities Exam: Full ROM, Pedal Edema. absent: Calf Tenderness - Neurological Exam Neurological Exam: Alert, Awake. absent: Altered Assessment and Plan (1) Pneumonia Assessment & Plan: Prednisone in tapering dose, currently 10 mg PO DAILY Antibiotics as per ID Continue nebulizer treatment RQ6 [facility] Does not need home oxygen Status: Acute (2) Asthma Status: Acute (3) CAD (coronary artery disease) Status: Acute (4) CHF (congestive heart failure) Status: Acute (5) Influenza Status: Acute (6) Sepsis Status: Acute
[2018-04-28] MEDS: Albuterol-Ipratrop 3 mg / 0.5 (3 ml) UD INH SCH ×3 (02:04→14:44)
[2018-04-28] MEDS: Amoxicillin-Clav 875-125 mg Tab PO SCH ×2 (05:38→17:39)
[2018-04-28] MEDS: (Novolin R) Insulin Human Regular 100 units/ml vial SC SCH ×3 (08:40→17:40)
[2018-04-28] MEDS: Saccharomyces Boulardi 250 mg Cap PO SCH (11:32)
[2018-04-28] MEDS: Mupirocin 2% Ointment (NASAL) NAS SCH ×2 (11:33→17:39)
[2018-04-28] MEDS: POLYETHYLENE GLYCOL 3350 17 GM/Dose PACKET PO SCH (11:33)
[2018-04-28] MEDS: Nystatin 100,000 Units/ml Oral Susp 5 ml UD PO SCH ×3 (11:33→14:17)
[2018-04-28 15:37] VITALS: BP 122/76; PULSE 69; TEMP 97.8; O2SAT 99
--- NOTE | 2018-04-28 16:50 | CP.PCM.PN ---
Subjective - Date & Time of Evaluation Date of Evaluation: 04/28/18 Time of Evaluation: 16:50 - Subjective Subjective: Patient is awake and responsive Comfortable, NAD No shortness of breath and cough Afebrile Objective - Vital Signs/Intake and Output Vital Signs (last 24 hours): Temp Pulse Resp BP Pulse Ox 97.8 F 69 20 122/76 99 04/28/18 15:00 04/28/18 15:00 04/28/18 15:00 04/28/18 15:00 04/28/18 15:00 Intake and Output: 04/28/18 04/28/18 06:59 18:59 Intake Total 480 Output Total 600 Balance -120 - Medications Medications: Current Medications Acetaminophen (Tylenol 325mg Tab) 650 mg PO Q6 PRN PRN Reason: Fever >100.4 F Albuterol/Ipratropium (Duoneb 3 Mg/0.5 Mg (3 Ml) Ud) 3 ml INH RQ6 [facility] Last Admin: 04/28/18 14:44 Dose: Not Given Amlodipine Besylate (Norvasc) 10 mg PO DAILY [facility] Last Admin: 04/28/18 11:34 Dose: Not Given Amoxicillin/Clavulanate Potassium (Augmentin 875 Mg-125 Mg Tab) 1 tab PO Q12H NAYE PRN Reason: Protocol Last Admin: 04/28/18 05:38 Dose: 1 tab Aspirin (Aspirin Chewable) 81 mg PO DAILY [facility] Last Admin: 04/28/18 11:29 Dose: 81 mg Famotidine (Pepcid) 20 mg PO DAILY [facility] Last Admin: 04/28/18 11:29 Dose: 20 mg Insulin Human Regular (Novolin R) 0 unit SC ACHS NAYE PRN Reason: Protocol Last Admin: 04/28/18 13:04 Dose: 2 units Losartan Potassium (Cozaar) 100 mg PO DAILY [facility] Last Admin: 04/28/18 11:35 Dose: Not Given Mupirocin (Bactroban 2% Nasal) 0.25 gm AWILDA BID [facility] Last Admin: 04/28/18 11:33 Dose: 0.25 gm Nystatin (Nystatin Oral Susp) 5 ml PO QID [facility] Last Admin: 04/28/18 14:17 Dose: 5 ml Polyethylene Glycol (Miralax) 17 gm PO DAILY [facility] Last Admin: 04/28/18 11:33 Dose: 17 gm Prednisone (Prednisone Tab) 10 mg PO DAILY [facility] Last Admin: 04/28/18 11:32 Dose: 10 mg Saccharomyces Boulardii (Florastor) 250 mg PO Q12 [facility] Last Admin: 04/28/18 11:32 Dose: 250 mg Spironolactone (Aldactone) 25 mg PO BID [facility] Last Admin: 04/28/18 11:32 Dose: 25 mg - Labs Labs: 04/25/18 07:27 04/25/18 07:27 PT 13.4 SECONDS (9.7-12.2) H 04/11/18 17:04 INR 1.2 04/11/18 17:04 APTT 28 SECONDS (21-34) 04/18/18 05:57 Assessment and Plan - Assessment and Plan (Free Text) Assessment: PATIENT SEEN AND EXAMINED AT THE BEDSIDE PLACE UNDER THE SERVICE OF MELIS[facility] AT [facility]---CALL FOR ADMITTING ORDER FOLLOW UP WITH DR TORRES AT HER OFFICE IN 1-2 WEEK ---CALL FOR APPOINTMENT FOLLOW UP WITH DR FRANZ IN 1-2 WEEK AT HIS OFFICE ---CALL FOR APPOINTMENT FOLLOW UP WITH DR SEGAL AT HIS OFFICE ---CALL FOR APPOINTMENT CONTINUE HOME MEDICATION ORDER NEW PRESCRIPTION GIVEN AUGMENTIN PO DAILY FOR 7 DAYS LASIX PO 20MG EVERY OTHER DAY ALDACTONE 25 MG PO EVERY OTHER DAY FLORASTOR 250 MG PO Q12H FOR 7 DAYS ACTIVITY TOLERATED CALL DR TORRES OR GO TO THE EMERGENCY ROOM IF SYMPTOM RETURN OR WORSENING DISCUSS WITH PATIENT WHO AGREE AND VERBALIZED UNDERSTANDING
[2018-04-28 17:02] LABS: BASO # 0.1 K/uL (0.0-0.2); BASO % 0.3 % (0.0-2.0); EOS # 0.1 K/uL (0.0-0.7); EOS % 0.5 % (0.0-4.0); HEMOGLOBIN 15.2 g/dL (12.0-18.0); LYMPH # 0.5 K/uL (1.0-4.3); MEAN CELL VOLUME 88.7 fL (80.0-94.0); MEAN CORPUSCULAR HEMOGLOBIN 29.8 pg (27.0-31.0); MEAN CORPUSCULAR HGB CONC 33.6 g/dL (33.0-37.0); MEAN PLATELET VOLUME 9.4 fL (7.2-11.7); MONO # 0.4 K/uL (0.0-0.8); MONO % 2.3 % (0.0-10.0); NEUT # 15.4 K/uL (1.8-7.0); NEUT % 93.9 % (50.0-75.0); PLATELET COUNT 242 K/uL (130-400); RED CELL DISTRIBUTION WIDTH 13.9 % (11.5-14.5); WHITE BLOOD COUNT 16.4 K/uL (4.8-10.8)
--- NOTE | 2018-04-28 17:02 | CP.PCM.PN ---
Subjective - Date & Time of Evaluation Date of Evaluation: 04/28/18 Time of Evaluation: 16:59 - Subjective Subjective: feels [place] Objective - Vital Signs/Intake and Output Vital Signs (last 24 hours): Temp Pulse Resp BP Pulse Ox 97.8 F 69 20 122/76 99 04/28/18 15:00 04/28/18 15:00 04/28/18 15:00 04/28/18 15:00 04/28/18 15:00 Intake and Output: 04/28/18 04/28/18 06:59 18:59 Intake Total 480 Output Total 600 Balance -120 - Medications Medications: Current Medications Acetaminophen (Tylenol 325mg Tab) 650 mg PO Q6 PRN PRN Reason: Fever >100.4 F Albuterol/Ipratropium (Duoneb 3 Mg/0.5 Mg (3 Ml) Ud) 3 ml INH RQ6 [facility] Last Admin: 04/28/18 14:44 Dose: Not Given Amlodipine Besylate (Norvasc) 10 mg PO DAILY [facility] Last Admin: 04/28/18 11:34 Dose: Not Given Amoxicillin/Clavulanate Potassium (Augmentin 875 Mg-125 Mg Tab) 1 tab PO Q12H [facility]AYE PRN Reason: Protocol Last Admin: 04/28/18 05:38 Dose: 1 tab Aspirin (Aspirin Chewable) 81 mg PO DAILY [facility] Last Admin: 04/28/18 11:29 Dose: 81 mg Famotidine (Pepcid) 20 mg PO DAILY [facility] Last Admin: 04/28/18 11:29 Dose: 20 mg Insulin Human Regular (Novolin R) 0 unit SC ACHS [facility]AYE PRN Reason: Protocol Last Admin: 04/28/18 13:04 Dose: 2 units Losartan Potassium (Cozaar) 100 mg PO DAILY [facility] Last Admin: 04/28/18 11:35 Dose: Not Given Mupirocin (Bactroban 2% Nasal) 0.25 gm AWILDA BID [facility] Last Admin: 04/28/18 11:33 Dose: 0.25 gm Nystatin (Nystatin Oral Susp) 5 ml PO QID [facility] Last Admin: 04/28/18 14:17 Dose: 5 ml Polyethylene Glycol (Miralax) 17 gm PO DAILY [facility] Last Admin: 04/28/18 11:33 Dose: 17 gm Prednisone (Prednisone Tab) 10 mg PO DAILY [facility] Last Admin: 04/28/18 11:32 Dose: 10 mg Saccharomyces Boulardii (Florastor) 250 mg PO Q12 [facility] Last Admin: 04/28/18 11:32 Dose: 250 mg Spironolactone (Aldactone) 25 mg PO BID [facility] Last Admin: 04/28/18 11:32 Dose: 25 mg - Labs Labs: 04/25/18 07:27 04/25/18 07:27 PT 13.4 SECONDS (9.7-12.2) H 04/11/18 17:04 INR 1.2 04/11/18 17:04 APTT 28 SECONDS (21-34) 04/18/18 05:57 - Constitutional Appears: Non-toxic - Head Exam Head Exam: NORMAL INSPECTION - Eye Exam Eye Exam: Normal appearance Pupil Exam: NORMAL ACCOMODATION - ENT Exam ENT Exam: Mucous Membranes Moist - Respiratory Exam Respiratory Exam: Clear to Ausculation Bilateral - Cardiovascular Exam Cardiovascular Exam: REGULAR RHYTHM - GI/Abdominal Exam GI & Abdominal Exam: Normal Bowel Sounds - Rectal Exam Rectal Exam: NORMAL INSPECTION - Exam Exam: NORMAL INSPECTION - Extremities Exam Extremities Exam: Full ROM, Normal Inspection - Back Exam Back Exam: NORMAL INSPECTION - Neurological Exam Neurological Exam: Abnormal Gait, Alert, Awake, Oriented x3 - Psychiatric Exam Psychiatric exam: Normal Mood - Skin Skin Exam: Normal Color, Pallor Assessment and Plan - Assessment and Plan (Free Text) Assessment: s/p pnumonia s/p chf generalised weekness Plan: d/c to [facility]
[2018-04-28 17:20] LABS: ALB/GLOB RATIO 1.1 (1.0-2.1); ALBUMIN 3.8 g/dL (3.5-5.0); CALCIUM 8.7 mg/dl (8.6-10.4)
[2018-04-28 18:38] LABS: LYMPHOCYTE 4 % (20-40); MONOCYTE 1 % (0-10); NEUTROPHIL 95 % (50-75); PLATELET ESTIMATE NORMAL (NORMAL); TOTAL CELLS COUNTED 100
--- NOTE | 2018-05-05 07:01 | DS ---
Copied To: Annette Krishnamurthy MD Attending MD: Annette Krishnamurthy MD He came into the emergency room on 04/11/2018, complaining of short of breath, cough, productive for 3 days green sputum. He was having fever at home and some chills, sweating, and dizziness; associated with cough. He has anorexia. He reported constipation for 5 days. The patient has returned from [facility] 3 weeks ago. He was also having a history of hypertension, status post CABG and pacemaker, and emphysema. On admission, he was nontoxic. He was afebrile, 98.4. His respirations was 30 per minute and has blood pressure of 142/72. His white count was high 14, and his lung was having rales and rhonchi, and his blood tests show troponin 0.058 and pro-BNP was very high at 5550 and the rest of the lab was unremarkable. Urine was clean. His chest x-ray on admission showed normal heart size, status post CABG, right basal opacity, possible pneumonia, and in addition, there are nodular opacities in the right base; concerning metastatic disease and future evaluation with a CAT scan. He had a CAT scan done before discharge on 04/23/2018 osteopenia. CAT scan of the chest was done on 04/12/2018 reported; conclusion, no definite evidence of any pulmonary embolism, and he has some interstitial pulmonary disease. He has ground-glass interstitial and limited honeycomb is noted, moderate right hilar adenopathy, cardiomegaly, and there were no lesions. He was also seen by our pulmonary consultation; Dr. Koko Vanegas; and he was on antibiotic and seen by Dr. Yao, Infectious Disease as well. He was taking antibiotics, nebulizer treatment, Tylenol, and he was started on Avelox, and he took the Tamiflu. His potassium was low. He was compensated for that. So, his impression was influenza acute, pneumonia acute, acute sepsis, and bradycardia. One of those days, he became very short of breath and he was having discomfort and distress; and he was transferred to ICU and congestive heart failure. He was started on diuretics, Aldactone, and Lasix. He was improving with medications. He was continued to be on antibiotics as well; and he was back again transferred to the floor after he felt better for his breathing. His white count improved. He was on steroids and nebulizers as well. He went back to the floor, after he got better. On 04/28/2018, he was stable, and he was comfortable and he was cleared by Infectious Disease, and he was sent to rehabilitation because he was weak and has unsteady gait. So, he has to continue all his medications. He still has a little bit high blood count. His hemoglobin was good. His kidney function was decrease of the medications of the diuretics ordered, and he will continue on these medications. Follow up by the doctor who will see him on the custodial, and he will follow up in my office after that. FINAL DIAGNOSES: Acute pneumonia, acute congestive heart failure, sepsis, influenza, generalized weakness, and unstable gait. Annette Krishnamurthy MD
== END 2018-04-28 20:53 | DRG 871 ==
LOC: C.ER 16:29 → C.9E 19:12 → C.6T 19:39 → C.9I 04-15 12:39 → C.5S 04-20 01:28 → C.9I 04-20 06:57 → C.5S 04-20 09:57
PROVIDERS: ADMIT Internal Medicine; ATTEND Internal Medicine
DX: A41.9 Sepsis, unspecified organism (principal); J96.91 Respiratory failure, unspecified with hypoxia; J18.9 Pneumonia, unspecified organism; J10.00 Influenza due to other identified influenza virus with unspecified type of pneumonia; J44.0 Chronic obstructive pulmonary disease with (acute) lower respiratory infection; H54.7 Unspecified visual loss; I11.0 Hypertensive heart disease with heart failure; I25.10 Atherosclerotic heart disease of native coronary artery without angina pectoris; I34.0 Nonrheumatic mitral (valve) insufficiency; J43.9 Emphysema, unspecified; K59.00 Constipation, unspecified; Z74.01 Bed confinement status; Z95.1 Presence of aortocoronary bypass graft; Z95.0 Presence of cardiac pacemaker; I50.9 Heart failure, unspecified; E11.9 Type 2 diabetes mellitus without complications; K75.9 Inflammatory liver disease, unspecified; Z68.21 Body mass index [BMI] 21.0-21.9, adult